=== PATIENT | male | born 1960 | race Caucasian/White ===

== ENCOUNTER → 2018-12-07 12:46 | Outpatient (BNVA) | payer MEDICARE, SELFPAY | PROVIDERS: Visit Provider Urology | DX: N43.40 Spermatocele of epididymis, unspecified (principal); I10 Essential (primary) hypertension; J44.9 Chronic obstructive pulmonary disease, unspecified; F17.210 Nicotine dependence, cigarettes, uncomplicated | CPT/HCPCS: 99203 ==

== ENCOUNTER 2019-01-07 06:34 | Day surgery (SDC) | payer MEDICARE, SELFPAY ==
--- NOTE | 2019-01-07 06:39 | W.PM.HP.N ---
Date of service: 01/07/19 Time of Service: 06:41 Assessment and Plan (1) Spermatocele of epididymis, multiple: Current visit: Yes Status: Acute We will go ahead with his left spermatocelectomy. History of Present Illness Chief Complaint: Left spermatoceles Narrative: This is a 58-year-old gentleman who multiple chronic medical issues. He was referred down to me from [facility] because of left-sided spermatoceles. The spermatoceles had been present for several years but have been increasing in size. The patient is concerned that these lesions may be responsible for some of his chronic pain as well as difficulty with erections. He is interested in having the lesion surgically treated. As part of our preop counseling, I informed the patient that these lesions would not be expected to have an impact on his erectile dysfunction. They also may not be contributing to his pain. He is still interested in having the lesions excised. Review of Systems Constitutional Denies chills, Reports daytime sleepiness, Reports fatigue, Denies fever(s) and Reports lethargy Eyes Denies loss of vision ENT Reports neck pain Cardiovascular Denies chest pain and Reports dyspnea on exertion Respiratory Reports dyspnea on exertion Gastrointestinal Denies abdominal pain Musculoskeletal Reports back pain, Reports arthralgias and Reports neck pain Neurologic Denies loss of vision Endocrine Reports fatigue Hematologic/Lymphatic Denies easy bruising PFSH Medical History Spermatocele of epididymis, multiple (Acute) Sleep apnea (Acute) COPD (chronic obstructive pulmonary disease) (Chronic) Cervical disc disease (Chronic) Depression (Chronic) GERD (gastroesophageal reflux disease) (Chronic) Hyperlipidemia (Chronic) Hypertension (Chronic) Lumbar disc disease (Chronic) Neuropathy (Chronic) Seizure (Inactive) Surgical History H/O carpal tunnel repair (Chronic) H/O eye surgery (Chronic) H/O hernia repair (Chronic) History of orthopedic surgery (Chronic) Hx of arthroscopy of knee (Chronic) Hx of tonsillectomy (Chronic) Social History Smoking/Tobacco Use Status: Current every day Tobacco Type: cigarettes Smoking cigarettes per day: 6 Tobacco: How many years used: 40 Alcohol Intake: never Substance use type: does not use Do you feel safe at home: Yes Do you feel safe in your relationship?: Yes Meds Home Medications Medication Instructions Recorded Confirmed Type acyclovir 200 mg capsule 200 mg PO Q4H 12/07/18 01/07/19 History buspirone 15 mg tablet 15 mg PO TID tab 12/07/18 01/07/19 History citalopram 20 mg tablet 20 mg PO DAILY 12/07/18 01/07/19 History divalproex 500 mg tablet,delayed 1,000 mg PO HS tab 12/07/18 01/07/19 History release doxycycline hyclate 100 mg capsule 100 mg PO BID 12/07/18 01/07/19 History esomeprazole magnesium 40 mg 40 mg PO DAILY cap 12/07/18 01/07/19 History capsule,delayed release fluticasone propionate-salmeterol 2 puff IH BID 12/07/18 01/07/19 History 115 mcg-21 mcg/actuation HFA inhaler gabapentin 300 mg capsule 300 mg PO TID 12/07/18 01/07/19 History hydroxyzine HCl 25 mg tablet 25 mg PO QID PRN 12/07/18 01/07/19 History lithium carbonate ER 300 mg 300 mg PO DAILY tab 12/07/18 01/07/19 History tablet,extended release naproxen 500 mg tablet 500 mg PO BID 12/07/18 01/07/19 History pramipexole 1 mg tablet 1 mg PO TID 12/07/18 01/07/19 History prochlorperazine maleate 10 mg 10 mg PO TID tab 12/07/18 01/07/19 History tablet risperidone 2 mg tablet 2 mg PO DAILY 12/07/18 01/07/19 History risperidone 4 mg tablet 4 mg PO HS 12/07/18 01/07/19 History trazodone 100 mg tablet 100 mg PO HS 12/07/18 01/07/19 History Allergies Allergy/AdvReac Type Severity Reaction Status Date / Time aspirin Allergy stomach Verified 01/07/19 06:38 concerns codeine Allergy itching Verified 01/07/19 06:38 cyclobenzaprine Allergy Verified 01/07/19 06:38 [From Flexeril] risperidone [From Risperdal] Allergy N&V Verified 01/07/19 06:38 rofecoxib [From Vioxx] Allergy palpitation Verified 01/07/19 06:38 s Exam Narrative Exam Narrative: He appears chronically ill. He does not appear septic or toxic His vital signs are documented elsewhere His neck shows decreased range of motion Lungs show decreased breath sounds bases Cardiac exam shows a regular rate and rhythm His abdomen is soft with no masses The testes themselves are normal. There is no scrotal erythema or ecchymosis. There are palpable masses above the left testis consistent with his known spermatoceles He is somnolent but awakens easily.
[2019-01-07 06:56] VITALS: BP 117/75; PULSE 86; RESP 16; TEMP 36.5; O2SAT 95
[2019-01-07] MEDS: Lactated Ringers 1,000 ML 80 ML IV (07:13)
--- NOTE | 2019-01-07 07:34 | NUR.NOTE ---
01/07/19 @ 0735: Pt presents today with slurred/garbled speech, and at a heightened fall risk due to appearing quite unsteady on feet walking from waiting room to DSU room. Pt has eyes closed for most of the intake with nurse and delayed responses when answering questions for nurse's intake. Yellow bracelet applied and circulating nurse made aware of increased fall risk. Pt's spouse reports that despite wanting to give pt some of her pain medication r/t pain he has, she did not give him any of his medication. notified of pt's status. EVELYNE Correa
--- NOTE | 2019-01-07 08:15 | SPERMATO_PTH ---
PATIENT: Jose Denson SR LOC: [facility] U#:[id number] AGE/SX: 58/M ROOM: RE01/07/[address]: Se Venegas MD : [id number] BED: DIS: 01/07/2019 SPEC #: [id number] RECD: 01/07/19 11:31 STATUS: RAMON REQ #: [id number] BRIANA: 01/07/19 08:[address]: Se Venegas DEPT: Surgical Specimen RECD BY: Brenda Clay ENTERED: 01/07/19 11:33 SP TYPE: SPERMATO OTHR DR: Ta Barker Tissues: 1 - SPERMATOCELE Procedures: GROSS AND MICRO LEVEL 3 Comments: [id number]
[2019-01-07] MEDS: Bupivacaine 0.25% Pres-Free 30 ML VIAL (08:21)
--- NOTE | 2019-01-07 08:24 | W.PM.DSUDISC ---
Discharge Plan Disposition Patient Disposition: HOME Condition: Stable Discharge Details Reason For Visit: surgery Attending Provider: Se Venegas Primary Care Provider: Ta Barker Home Meds and New Rx's Prescriptions: No Action acyclovir 200 mg capsule 200 mg PO Q4H RF: 0 Advair HFA 115-21 mcg/actuation HFA aerosol inhaler 2 puff IH BID RF: 0 buspirone 15 mg tablet 15 mg PO TID RF: 0 citalopram 20 mg tablet 20 mg PO DAILY RF: 0 divalproex 500 mg tablet,delayed release (DR/EC) 1,000 mg PO HS RF: 0 doxycycline hyclate 100 mg capsule 100 mg PO BID RF: 0 esomeprazole magnesium 40 mg capsule,delayed release(DR/EC) 40 mg PO DAILY RF: 0 gabapentin 300 mg capsule 300 mg PO TID RF: 0 hydroxyzine HCl 25 mg tablet 25 mg PO QID PRNRF: 0 lithium carbonate 300 mg tablet extended release 300 mg PO DAILY RF: 0 naproxen 500 mg tablet 500 mg PO BID RF: 0 pramipexole 1 mg tablet 1 mg PO TID RF: 0 prochlorperazine maleate 10 mg tablet 10 mg PO TID RF: 0 risperidone 2 mg tablet 2 mg PO DAILY RF: 0 risperidone 4 mg tablet 4 mg PO HS RF: 0 trazodone 100 mg tablet 100 mg PO HS RF: 0 Discharge Instructions Additional Instructions: OK to remove dressing and shower 01/08/19 Follow up with me 2 to 4 weeks Ice packs to scrotum (bag of frozen peas) for 48 hours to help reduce swelling Activity:: no lifting over 10 pounds until f/u visit Remove Dressings/Wound Care:: 24 hours Shower/Bathe:: 24 hours Diet:: As Tolerated Discharge Orders Discharge Orders: Discharge Order (Routine); Ordered 01/07/19 Ordered By: Se Venegas DS: Diagnosis Discharge Diagnosis (1) Spermatocele of epididymis, multiple: Status: Acute
[2019-01-07 08:31] VITALS: BP 105/71; PULSE 85; RESP 14; TEMP 36.7; O2SAT 95
[2019-01-07 08:36] VITALS: BP 124/76; PULSE 85; RESP 14; TEMP 36.7; O2SAT 94
[2019-01-07 08:41] VITALS: BP 98/69; PULSE 88; RESP 20; TEMP 36.7; O2SAT 95
[2019-01-07 08:56] VITALS: BP 112/92; PULSE 74; RESP 15; TEMP 36.7; O2SAT 97
[2019-01-07 09:35] VITALS: BP 118/75; PULSE 75; RESP 14; TEMP 36.7; O2SAT 94
--- NOTE | 2019-01-07 13:14 | ROE_ITS ---
REPORT OF OPERATIVE PROCEDURE DATE OF PROCEDURE January 07, 2019 PREOPERATIVE DIAGNOSIS Left spermatocele. POSTOPERATIVE DIAGNOSIS Left spermatocele. PROCEDURE Left spermatocelectomy. SURGEON Se Venegas M.D. ANESTHESIA General. COMPLICATIONS None. ESTIMATED BLOOD LOSS Minimal. HISTORY This is a 58-year-old gentleman who was referred by the providers up at [facility]. Mr. Fadi henry has a history of left scrotal masses, which have increased in size and have become a bit more u ncomfortable for him. He does have chronic pain and it is not clear that the spermatoceles are respon sible for any of his chronic pain, but he is interested in having the lesions removed. OPERATIVE REPORT The patient was brought to the Operating Room on 01/07/2019. After successful induction of general an esthesia, he was placed in the supine position. His genitalia was prepped and draped. A left transverse scrotal incision was made and extended down through the dartos muscle. The testis w as then delivered through the incision. We opened the tunica vaginalis and exposed the testis and epididymis. A multicystic spermatocele was identified attached to the epididymis. We then dissected the spermatocele away from the epididymis. We were able to remove the multicystic s permatocele intact and send it to the Pathology Lab for permanent section. We cauterized the attachme nt point of the spermatocele and re-inspected the epididymis and testis for hemostasis. The perfusion to the testis appeared adequate based on its gross appearance. We then did a cord block using 0.25% Marcaine. We placed the testis back within the left hemiscrotum. We closed the dartos muscle using a section of running #3-0 Chromic sutures. We then closed the scro maggie skin with simple interrupted #4-0 Chromic. Dermabond was applied to the wound, a Fluff dressing a nd mesh underwear where then applied as well. The patient tolerated this procedure well. There were no complications. CC: Ta Barker M.D. Nara Mendez M.D.
== END 2019-01-07 10:45 | disposition home or self-care (01) ==
PROVIDERS: PCP Family Medicine; Visit Provider Urology
PROC: (CPT 54840; principal; 2019-01-07 07:30)
DX: N43.41 Spermatocele of epididymis, single (principal); J44.9 Chronic obstructive pulmonary disease, unspecified; K21.9 Gastro-esophageal reflux disease without esophagitis; I10 Essential (primary) hypertension; N45.1 Epididymitis
CPT/HCPCS: 54840; NC; 88304; J1100; J1885; J2405

== ENCOUNTER → 2019-02-12 13:06 | Outpatient (BNVA) | payer MEDICARE, SELFPAY | PROVIDERS: PCP Family Medicine; Visit Provider Urology | DX: N43.42 Spermatocele of epididymis, multiple (principal); J44.9 Chronic obstructive pulmonary disease, unspecified; I10 Essential (primary) hypertension; F17.210 Nicotine dependence, cigarettes, uncomplicated | CPT/HCPCS: 99212 ==

== ENCOUNTER → 2020-04-18 10:29 | Outpatient (BNVA) | payer MEDICARE, MEDICAID, SELFPAY | PROVIDERS: PCP Family Medicine; Referring Provider Family Medicine; Visit Provider Urology | DX: N40.1 Benign prostatic hyperplasia with lower urinary tract symptoms (principal); N52.9 Male erectile dysfunction, unspecified; Z12.5 Encounter for screening for malignant neoplasm of prostate; J44.9 Chronic obstructive pulmonary disease, unspecified; I10 Essential (primary) hypertension; F17.210 Nicotine dependence, cigarettes, uncomplicated | CPT/HCPCS: 99213 ==

== ENCOUNTER → 2020-05-25 10:18 | Outpatient (BNVA) | payer MEDICARE, MEDICAID, SELFPAY | PROVIDERS: PCP Family Medicine; Referring Provider Family Medicine; Visit Provider Urology | DX: E29.1 Testicular hypofunction (principal); N52.9 Male erectile dysfunction, unspecified; I10 Essential (primary) hypertension; J44.9 Chronic obstructive pulmonary disease, unspecified | CPT/HCPCS: 99213; 99442 ==

== ENCOUNTER → 2020-11-07 10:11 | Outpatient (BNVA) | payer MEDICARE, MEDICAID, SELFPAY | PROVIDERS: PCP Family Medicine; Referring Provider Family Medicine; Visit Provider Urology | DX: E29.1 Testicular hypofunction (principal) | CPT/HCPCS: 99213 ==

== ENCOUNTER 2020-11-07 12:25 | Outpatient (REF) | payer MEDICARE, MEDICAID, SELFPAY ==
[2020-11-07 17:35] LABS: PSA, Diagnostic 0.8 ng/mL (0.0-3.5)
[2020-11-09 11:34] LABS: Testosterone, Total 220 ng/dL (240-950)
== END 2020-11-07 12:26 | disposition home or self-care (01) ==
LOC: LBN 12:25
PROVIDERS: PCP Family Medicine; Visit Provider Urology
DX: E29.1 Testicular hypofunction (principal); N40.1 Benign prostatic hyperplasia with lower urinary tract symptoms
CPT/HCPCS: 84403; 84153

== ENCOUNTER 2020-11-13 11:15 | Outpatient (CLI) | payer MEDICARE, MEDICAID, SELFPAY ==
--- NOTE | 2020-11-13 | DI.US_ITS ---
EXAM: US EXTREMITY VENOUS BI CLINICAL HISTORY: BILATERAL LEG PAIN, M79.606 TECHNIQUE: Grayscale, color, and doppler imaging of the deep venous system of both lower extremities was performed. COMPARISON: No exams were available for comparison FINDINGS: There is no evidence of intraluminal thrombus and there is normal compression and augmentation demons trated within the common femoral veins, femoral veins, and popliteal veins of both lower extremities. In the calves the interrogated veins also exhibit normal compression/ augmentation properties. The greater saphenous veins also appear patent as do the saphenofemoral junctions bilaterally.. IMPRESSION: 1. No ultrasound evidence of DVT in either lower extremity. DATA REPOSITORY:
== END 2020-11-13 11:35 ==
PROVIDERS: PCP Family Medicine; Visit Provider Neurological Surgery
DX: R60.0 Localized edema (principal); M79.604 Pain in right leg; M79.605 Pain in left leg
CPT/HCPCS: 93970

== ENCOUNTER 2021-04-13 10:06 | Day surgery (SDC) | payer OTHER, MEDICAID, SELFPAY ==
[2021-04-13] MEDS: Tropicam./Phenyleph. (1/2.5%) 5 ML BTL OS ×3 (11:46→12:14)
[2021-04-13 12:14] VITALS: BP 141/99; PULSE 75; RESP 16; TEMP 36.9; O2SAT 97
--- NOTE | 2021-04-13 12:23 | W.ANESPRE ---
General Info Date of Service Date Performed: 04/13/21 Height: 6 ft 2 in Weight: 88.5 kg Body Mass Index (BMI): 25.0 Surgical Procedure: Operation Date: 04/13/21 14:40 Proposed Procedures Side Surgeon p Cataract Extraction with IOL Implant Left Osei Gale MD Meds Allergies and Home Medications Allergies Allergy/AdvReac Type Severity Reaction Status Date / Time aspirin Allergy stomach Verified 04/13/21 11:51 concerns codeine Allergy itching Verified 04/13/21 11:51 cyclobenzaprine Allergy Verified 04/13/21 11:51 [From Flexeril] risperidone [From Risperdal] Allergy N&V Verified 04/13/21 11:51 rofecoxib [From Vioxx] Allergy palpitation Verified 04/13/21 11:51 s Home Medication Medication Instructions Recorded acyclovir 200 mg capsule 200 mg PO Q4H 12/07/18 buspirone 15 mg tablet 15 mg PO TID tab 12/07/18 citalopram 20 mg tablet 20 mg PO DAILY 12/07/18 divalproex 500 mg tablet,delayed 1,000 mg PO HS tab 12/07/18 release esomeprazole magnesium 40 mg 40 mg PO DAILY cap 12/07/18 capsule,delayed release fluticasone propionate 115 2 puff IH BID 12/07/18 mcg-salmeterol 21 mcg/actuation HFA inhaler gabapentin 300 mg capsule 300 mg PO QID 12/07/18 hydroxyzine HCl 25 mg tablet 25 mg PO QID PRN 12/07/18 naproxen 500 mg tablet 500 mg PO BID 12/07/18 pramipexole 1 mg tablet 1 mg PO TID 12/07/18 prochlorperazine maleate 10 mg 10 mg PO TID tab 12/07/18 tablet risperidone 2 mg tablet 2 mg PO DAILY 12/07/18 risperidone 4 mg tablet 4 mg PO HS 12/07/18 trazodone 100 mg tablet 300 mg PO HS 12/07/18 hydrocodone 10 mg-acetaminophen 1 tab PO Q6H PRN #30 tab MDD 6 01/07/19 325 mg tablet levothyroxine 88 mcg capsule 88 mcg PO DAILY 04/18/20 testosterone cypionate 200 mg/mL 200 mg IM Q2W #1 ml 12/12/20 intramuscular oil famotidine 40 mg PO DAILY 04/13/21 gabapentin 600 mg PO TID 04/13/21 lamotrigine 25 mg PO DAILY 04/13/21 metoclopramide HCl 5 mg PO DAILY 04/13/21 omeprazole 40 mg PO DAILY 04/13/21 Current Visit Medications: Current Medications Generic Name Dose Route Start Last Admin Trade Name Freq PRN Reason Stop Dose Admin Acetaminophen 1,000 mg 04/13/21 06:00 Acetaminophen 500 Mg Tab PO Q4H PRN PRN Miscellaneous Medication 0 ml 04/13/21 06:00 Prednisolone 1%, Moxifloxacin 0.5%, Nepafenac 0.1% 5ml Btl OS DIRECTED EMERITA Miscellaneous Medication 0 ml 04/13/21 06:00 04/13/21 12:14 Tropicam./Phenyleph. (1/2.5%) 5 Ml Btl OS 1 drp DIRECTED EMERITA Administration Tetracaine HCl 0 ml 04/13/21 06:00 Tetracaine 0.5% 4 Ml Btl OS DIRECTED EMERITA PFSH Active Problems Active Problems: Problem Status Onset Code Hypogonadism in male E29.1 Spermatocele of epididymis, multiple N43.42 Medical History Medical History (Updated 04/13/21 @ 12:23 by Shilpa Garsia) Cervical disc disease COPD (chronic obstructive pulmonary disease) Depression GERD (gastroesophageal reflux disease) History of back injury History of hypothyroidism Hyperlipidemia Hypertension Hypogonadism in male Lumbar disc disease Neuropathy Seizure Sleep apnea Spermatocele of epididymis, multiple Surgical History Surgical History H/O carpal tunnel repair H/O eye surgery foreign body removal H/O hernia repair History of back surgery History of orthopedic surgery finger mass Hx of arthroscopy of knee Hx of shoulder surgery left Hx of tonsillectomy Tobacco Smoking/Tobacco Use Status: Current every day Tobacco Type: cigarettes Smoking cigarettes per day: 6 Tobacco: How many years used: 40 Alcohol Alcohol Intake: never Substance Use Substance use type: does not use Vital Signs and Lab Results Vital Signs Most Recent Vital Signs in EMR: Most Recent Vital Signs Temp Pulse Resp BP Pulse Ox 36.9 C 75 16 141/99 H 97 04/13/21 12:14 04/13/21 12:14 04/13/21 12:14 04/13/21 12:14 04/13/21 12:14 Lab Results Blood Type / Crossmatch: No Data to Display Complete Blood Count: No Data to Display Complete Metabolic Panel: No Data to Display Liver Function Panel: No Data to Display Coagulation Panel: No Data to Display Cardiac Panel: No Data to Display Arterial Blood Gas: No Data to Display Venous Blood Gas: No Data to Display Pancreas Panel: No Data to Display Thyroid Panel: No Data to Display Infectious Disease: No Data to Display Blood Cultures: No Data to Display Toxicology Panel: No Data to Display Anesthesia Assessment and Plan Anesthesia History Personal History: No History of Anesthesia Complications Family History: No Family History of Anesthesia Complications Exercise Tolerance Exercise Tolerance: Metabolic Equivalents>4 Pertinent Negatives Pertinent Negatives: No Symptoms of GERD Cardiac & Pulmonary Exam Cardiac Exam: Normal S1/S2 Heart Sounds Pulmonary Exam: Clear Bilateral Breath Sounds Airway Exam Known Difficult Airway: No Mallampati Class: 2 Mouth Opening: Normal (> 3cm) Thyromental Distance: Greater than 3 cm Neck Range of Motion: Full ROM Neck Circumference: Normal Teeth Condition: Removable Dentures/Plates Upper, Removable Dentures/Plates Lower and Other (Both dentures with broken teeth) ASA Classification ASA Score: ASA 2 Emergency Case?: No NPO Status NPO Status: NPO Clears >2 hours, Solids >8 hours Anesthesia Plan Resuscitation Status: Full Code Anesthesia Technique: MAC Anesthesia Airway Planned: Natural Airway Monitors Used: Standard Monitors
[2021-04-13 12:25] VITALS: BMI 25.0
[2021-04-13 12:30] VITALS: BMI 25.0
[2021-04-13] MEDS: Tetracaine 0.5% 4 ML BTL OS (12:47)
[2021-04-13] MEDS: Balanced Salt Soln.-PLUS 500 ML BAG (12:47)
[2021-04-13] MEDS: Duovisc Viscoelastic System EACH 1 EACH (12:48)
[2021-04-13] MEDS: Lidocaine 1% Pres-Free 5 ML VIAL (12:48)
[2021-04-13] MEDS: Lidocaine 2% Jelly 6 ML SYR (12:49)
[2021-04-13] MEDS: Povidone-Iodine Ophth 30 ML BTL (12:51)
--- NOTE | 2021-04-13 13:09 | W.PM.DSUDISC ---
Discharge Plan Disposition Patient Disposition: HOME Condition: Good Discharge Details Attending Provider: Osei Gale Primary Care Provider: Ta Barker Home Meds and New Rx's Prescriptions: No Action acyclovir 200 mg capsule 200 mg PO Q4H RF: 0 Advair HFA 115-21 mcg/actuation HFA aerosol inhaler 2 puff IH BID RF: 0 buspirone 15 mg tablet 15 mg PO TID RF: 0 citalopram 20 mg tablet 20 mg PO DAILY RF: 0 divalproex 500 mg tablet,delayed release (DR/EC) 1,000 mg PO HS RF: 0 esomeprazole magnesium 40 mg capsule,delayed release(DR/EC) 40 mg PO DAILY RF: 0 gabapentin 300 mg capsule 300 mg PO QID RF: 0 hydroxyzine HCl 25 mg tablet 25 mg PO QID PRNRF: 0 naproxen 500 mg tablet 500 mg PO BID RF: 0 pramipexole 1 mg tablet 1 mg PO TID RF: 0 prochlorperazine maleate 10 mg tablet 10 mg PO TID RF: 0 risperidone 2 mg tablet 2 mg PO DAILY RF: 0 risperidone 4 mg tablet 4 mg PO HS RF: 0 trazodone 100 mg tablet 300 mg PO HS RF: 0 hydrocodone-acetaminophen 10-325 mg tablet 1 tab PO Q6H MDD 6 PRN (Reason: pain) Qty: 30 RF: 0 levothyroxine 88 mcg capsule 88 mcg PO DAILY RF: 0 testosterone cypionate [Depo-Testosterone] 200 mg/mL oil 200 mg IM Q2W Qty: 1 RF: 5 gabapentin 600 mg tablet 600 mg PO TID RF: 0 famotidine 40 mg tablet 40 mg PO DAILY RF: 0 omeprazole 40 mg capsule,delayed release(DR/EC) 40 mg PO DAILY RF: 0 lamotrigine 25 mg tablet 25 mg PO DAILY RF: 0 metoclopramide HCl 5 mg tablet 5 mg PO DAILY RF: 0 Discharge Instructions Stand Alone Forms: Post-op Topical Cataract, Nadiya Peoples (DSU) Discharge Orders Discharge Orders: Discharge Order (Routine); Ordered 04/13/21 Ordered By: Osei Gale DS: Diagnosis Discharge Diagnosis (1) Cortical cataract of left eye: Status: Acute (2) Nuclear sclerotic cataract of left eye: Status: Resolved
--- NOTE | 2021-04-13 13:10 | ROE_ITS ---
Date of service: 04/13/21 Time of Service: 13:10 Operative Note Operative Note DATE OF PROCEDURE: 04/13/21 PRE-OP DIAGNOSIS: Nuclear/cortical cataract, left eye POST-OP DIAGNOSIS: same PROCEDURE: Cataract extraction using phacoemulsification with intraocular lens implant, left eye SURGEON: Osei Gale ANESTHESIA TYPE: Local By Surgeon and MAC Refer to Anesthesia Record PATHOLOGY: none sent COMPLICATIONS: None Patient was transported to: same day Patient's condition: stable Implants: Ghanshyam and Ghanshyam / [employer] Tecnis [id number] Indications: Progressive decreased vision due to cataract, left eye, with poor red reflex Procedure Description: CATARACT SURGERY OPERATIVE REPORT PREOPERATIVE DIAGNOSIS: 1. Nuclear/cortical cataract, left eye POSTOPERATIVE DIAGNOSIS: Same OPERATION: 1. Cataract extraction using phacoemulsification with posterior chamber intraocular lens implant, left eye. IOL: IOL Insurance Sales Manager/Model: Gh[employer]hy[employer] Ghanshy[employer] / FRANCI Tecnis [id number] IOL Power: + 23.5 diopters IOL Serial Number: [id number] Optic Diameter: 6.0 mm Haptic/Overall Diameter: 13.0 mm PHACO INFO: Zbigniew Flexcomurion Vision System with OZil and Active Fluidics Cumulative Dispersed Energy (CDE): 7.03 seconds SURGEON: Osei Gale MD, TALAT ANESTHESIA: Monitored A [facility] Care (MAC), with local sub-tenon's anesthetic infiltration COMPLICATIONS: None SPECIMENS: None INDICATIONS FOR PROCEDURE: The patient is a 60-year-old gentleman with history of diminished visual acuity in his left eye. He is noted to have a moderate nuclear and cortical cataract. The option of cataract surgery was offered to the patient and he wished to proceed. PROCEDURE: The correct surgical eye was identified and marked as the left eye and the pupil was dilated in the preoperative area using mydriatics and c ycloplegics. The dilated pupil size was 7.0 mm. He elected to proceed without oral sedation.. The patient was brought to the operating room where cardiopulmonary monitoring was instituted and surgical time-out was performed, confirming the correct operative eye and IOL power. Topical anesthesia was administered and ophthalmic povidone-iodine 5% was instilled into the conjunctival fornices. Lidocaine gel was applied to the cornea and the willard-ocular area was prepped with Betadine 10% solution and draped in the usual sterile fashion for intraocular surgery, including an aperture drape. A Tegaderm transparent film dressing was cut in half and used to cover the lashes and lid margins. Care was taken to sequester the lashes and lid margins under the Tegaderm dressing. A lid speculum was placed between the lids of the operative eye and the Bo-Yajaira operating microscope was maneuvered into position. Humble scissors were then used to make a conjunctival buttonhole approximately 6mm posterior to the limbus in the inferonasal quadrant. Blunt dissection was carried out to expose bare sclera, and a blunt-tipped sub-tenon?s anesthesia cannula was introduced and passed posteriorly along the globe where non- preserved plain lidocaine was injected into posterior sub-Tenon?s space. A sideport knife was used to make a paracentesis port superiorly/superiortemporally. Intraocular phenylephrine/lidocaine was injected int the anterior chamber.. The anterior chamber was filled with viscoelastic. A 2.4mm keratome knife was used to create a half-thickness groove at the limbus and then to construct a three-plane near-clear corneal tunnel extending 2.0mm into clear cornea at the 3:00 position. A flap was raised on the anterior capsule and capsulorhexis forceps were used to complete a continuous curvilinear capsulorhexis of 5.0 mm. Balanced salt solution was then used to perform cortical cleaving hydrodissection and nuclear hydrodelineation until the lens could be freely rotated within the capsular bag. The lens nucleus was then disassembled and removed within the capsular bag and iris plane using phacoemulsification. Residual cortical material was removed using the 45-degree angled silicone I/A tip with 0.3mm port. The posterior capsule was carefully polished to remove as much residual lens epithelial cells as safely possible. The capsular bag was then inflated and the anterior chamber deepened with viscoelastic. The lens implant described above was inserted into the capsular bag using the FRANCI [place] Injector. A Kuglen hook was used to dial the IOL into position. Residual viscoelastic was then removed first from posterior to the IOL, then from the anterior chamber using the I/A handpiece. The lens implant was noted to center nicely within the capsular bag. The incisions were stromally hydrated, and the anterior chamber was reformed using BSS. Then 0.5cc of moxifloxacin 1.0mg/ml were injected into the capsular bag and anterior chamber. The incisi ons were checked with a Weck spear and found to be secure. Several drops of ophthalmic povidone-iodine 5% were then applied to the eye followed by two drops of Imprimis combination prednisolone/moxifloxacin/nepafenac solution. The drapes were removed and a clear plastic protective eye shield was placed over the eye. The patient was then returned to Same Day Surgery in stable condition.
[2021-04-13 13:12] VITALS: BP 132/87; PULSE 68; RESP 16; TEMP 36.5; O2SAT 96
--- NOTE | 2021-04-13 13:34 | W.ANESPOSTOP ---
Postoperative Evaluation Date, Time and Location Date Performed: 04/13/21 Time Performed: 13:34 Patient Location: Day Surgery Unit Vital Signs Most Recent Imported Vital Signs: Most Recent Vital Signs Temp Pulse Resp BP Pulse Ox 36.5 C 68 16 132/87 96 04/13/21 13:12 04/13/21 13:12 04/13/21 13:12 04/13/21 13:12 04/13/21 13:12 Pain Score Most Recent Pain Score: Most Recent Pain Score Pain Level 0 04/13/21 13:12 Assessment Mental Status: Awake (Alert & Oriented to Patient Baseline) Airway and Respiratory Function: Patent airway with normal (patient baseline) respiratory exam Cardiovascular Function: Hemodynamically Stable Hydration Status: Adequately Hydrated Nausea & Vomiting: No Nausea or Vomiting Pain: Pt. Denies Any Pain Peripheral Nerve Block: Other (Local by Dr. Gale)
== END 2021-04-13 13:40 | disposition home or self-care (01) ==
PROVIDERS: PCP Family Medicine; Visit Provider Ophthalmology
PROC: (CPT 66984; principal; 2021-04-13 14:30)
DX: H25.12 Age-related nuclear cataract, left eye (principal); J44.9 Chronic obstructive pulmonary disease, unspecified; I10 Essential (primary) hypertension
CPT/HCPCS: 66984; V2632

== ENCOUNTER 2021-04-25 03:36 | Outpatient (CLI) | payer OTHER, MEDICAID, SELFPAY ==
[2021-04-25 13:12] LABS: Source Nasal/Nares
[2021-04-25 15:22] LABS: COVID-19 PCR Negative (Negative)
== END 2021-04-25 03:37 | disposition home or self-care (01) ==
LOC: LBO 03:37
PROVIDERS: PCP Family Medicine; Visit Provider Ophthalmology
DX: Z20.822 Contact with and (suspected) exposure to COVID-19 (principal); Z01.818 Encounter for other preprocedural examination
CPT/HCPCS: 87635

== ENCOUNTER 2021-04-27 10:06 | Day surgery (SDC) | payer MEDICARE, MEDICAID, SELFPAY ==
[2021-04-27] MEDS: Tropicam./Phenyleph. (1/2.5%) 5 ML BTL OD ×3 (11:04→11:18)
[2021-04-27 11:06] VITALS: BP 128/92; PULSE 85; RESP 16; TEMP 36.7; O2SAT 95
--- NOTE | 2021-04-27 11:13 | ANES.PREOP_ITS ---
General Info Date of Service Date Performed: 04/27/21 Height: 6 ft 2 in Weight: 85.3 kg Body Mass Index (BMI): 24.1 Surgical Procedure: Operation Date: 04/27/21 13:40 Proposed Procedures Side Surgeon p Cataract Extraction with IOL Implant Right Osei Gale MD Meds Allergies and Home Medications Allergies Allergy/AdvReac Type Severity Reaction Status Date / Time codeine Allergy itching Verified 04/27/21 10:44 cyclobenzaprine Allergy Verified 04/27/21 10:44 [From Flexeril] aspirin AdvReac stomach Verified 04/27/21 10:46 concerns risperidone [From Risperdal] AdvReac N&V Verified 04/27/21 10:46 rofecoxib [From Vioxx] AdvReac palpitation Verified 04/27/21 10:46 s Home Medication Medication Instructions Recorded acyclovir 200 mg capsule 200 mg PO Q4H 12/07/18 fluticasone propionate 115 2 puff IH BID 12/07/18 mcg-salmeterol 21 mcg/actuation HFA inhaler gabapentin 300 mg capsule 300 mg PO QID 12/07/18 hydroxyzine HCl 25 mg tablet 25 mg PO QID PRN 12/07/18 pramipexole 1 mg tablet 1 mg PO TID 12/07/18 prochlorperazine maleate 10 mg 10 mg PO TID tab 12/07/18 tablet trazodone 100 mg tablet 300 mg PO HS 12/07/18 hydrocodone 10 mg-acetaminophen 1 tab PO Q6H PRN #30 tab MDD 6 01/07/19 325 mg tablet levothyroxine 88 mcg capsule 88 mcg PO DAILY 04/18/20 lamotrigine 25 mg PO BID 04/13/21 metoclopramide HCl 5 mg PO DAILY 04/13/21 omeprazole 40 mg PO DAILY 04/13/21 testosterone cypionate 200 mg/mL 200 mg IM Q2W #1 ml 04/19/21 intramuscular oil albuterol sulfate 2 puff INHALATION Q3-5H 04/27/21 baclofen 20 mg PO TID 04/27/21 fexofenadine-pseudoephedrine 1 tab PO BID 04/27/21 gabapentin 04/27/21 ibuprofen 600 mg PO QID PRN 04/27/21 Current Visit Medications: Current Medications Generic Name Dose Route Start Last Admin Trade Name Freq PRN Reason Stop Dose Admin Acetaminophen 1,000 mg 04/27/21 06:00 Acetaminophen 500 Mg Tab PO Q4H PRN PRN Miscellaneous Medication 0 ml 04/27/21 06:00 Prednisolone 1%, Moxifloxacin 0.5%, Nepafenac 0.1% 5ml Btl OD DIRECTED [facility] Miscellaneous Medication 0 ml 04/27/21 06:00 04/27/21 11:04 Tropicam./Phenyleph. (1/2.5%) 5 Ml Btl OD 1 drp DIRECTED EMERITA Administration Tetracaine HCl 0 ml 04/27/21 06:00 Tetracaine 0.5% 4 Ml Btl OD DIRECTED EMERITA PFSH Active Problems Active Problems: Problem Status Onset Code Cortical cataract of left eye H26.9 Nuclear sclerotic cataract of left eye H25.12 Nuclear sclerotic cataract of right eye H25.11 Cortical cataract of right eye H26.9 Hypogonadism in male E29.1 Spermatocele of epididymis, multiple N43.42 Medical History Medical History Cervical disc disease COPD (chronic obstructive pulmonary disease) Depression GERD (gastroesophageal reflux disease) History of back injury History of hypothyroidism Hyperlipidemia Hypertension Hypogonadism in male Lumbar disc disease Neuropathy Seizure Sleep apnea Spermatocele of epididymis, multiple Surgical History Surgical History (Updated 04/27/21 @ 10:46 by Shilpa Garsia) H/O carpal tunnel repair H/O eye surgery foreign body removal H/O hernia repair History of back surgery History of orthopedic surgery finger mass Hx of arthroscopy of knee Hx of cataract surgery Hx of shoulder surgery left Hx of tonsillectomy Tobacco Smoking/Tobacco Use Status: Current every day Tobacco Type: cigarettes Smoking cigarettes per day: 6 Tobacco: How many years used: 40 Alcohol Alcohol Intake: never Substance Use Substance use type: does not use Vital Signs and Lab Results Vital Signs Most Recent Vital Signs in EMR: Most Recent Vital Signs Temp Pulse Resp BP Pulse Ox 36.7 C 85 16 128/92 H 95 04/27/21 11:06 04/27/21 11:06 04/27/21 11:06 04/27/21 11:06 04/27/21 11:06 Lab Results Blood Type / Crossmatch: No Data to Display Complete Blood Count: No Data to Display Complete Metabolic Panel: No Data to Display Liver Function Panel: No Data to Display Coagulation Panel: No Data to Display Cardiac Panel: No Data to Display Arterial Blood Gas: No Data to Display Venous Blood Gas: No Data to Display Pancreas Panel: No Data to Display Thyroid Panel: No Data to Display Infectious Disease: Coronavirus (COVID-19)(PCR) Negative (Negative) 04/25/21 10:57 04/25/21 Coronavirus 2019 Source Nasal/Nares 04/25/21 10:57 04/25/21 Blood Cultures: No Data to Display Toxicology Panel: No Data to Display Anesthesia Assessment and Plan Anesthesia History Personal History: No History of Anesthesia Complications Family History: No Family History of Anesthesia Complications Exercise Tolerance Exercise Tolerance: Metabolic Equivalents>4 Pertinent Negatives Pertinent Negatives: No Symptoms of GERD Cardiac & Pulmonary Exam Cardiac Exam: Normal S1/S2 Heart Sounds Pulmonary Exam: Clear Bilateral Breath Sounds Airway Exam Known Difficult Airway: No Mallampati Class: 2 Mouth Opening: Normal (> 3cm) Thyromental Distance: Greater than 3 cm Neck Range of Motion: Full ROM Neck Circumference: Normal Teeth Condition: Removable Dentures/Plates Upper, Removable Dentures/Plates Lower and Other (Both dentures with broken teeth) ASA Classification ASA Score: ASA 2 Emergency Case?: No NPO Status NPO Status: NPO Clears >2 hours, Solids >8 hours Anesthesia Plan Resuscitation Status: Full Code Anesthesia Technique: MAC Anesthesia Airway Planned: Natural Airway Monitors Used: Standard Monitors
[2021-04-27] MEDS: Tetracaine 0.5% 4 ML BTL OD (11:40)
[2021-04-27 11:41] VITALS: BMI 24.1
[2021-04-27] MEDS: Duovisc Viscoelastic System EACH 1 EACH (11:41)
[2021-04-27] MEDS: Balanced Salt Soln.-PLUS 500 ML BAG (11:41)
[2021-04-27] MEDS: Lidocaine 1% Pres-Free 5 ML VIAL (11:42)
[2021-04-27] MEDS: Lidocaine 2% Jelly 6 ML SYR (11:42)
[2021-04-27] MEDS: Povidone-Iodine Ophth 30 ML BTL (11:43)
--- NOTE | 2021-04-27 12:04 | W.PM.DSUDISC ---
Discharge Plan Disposition Patient Disposition: HOME Condition: Good Discharge Details Attending Provider: Osei Gale Primary Care Provider: Ta Barker Home Meds and New Rx's Prescriptions: No Action acyclovir 200 mg capsule 200 mg PO Q4H RF: 0 Advair HFA 115-21 mcg/actuation HFA aerosol inhaler 2 puff IH BID RF: 0 gabapentin 300 mg capsule 300 mg PO QID RF: 0 hydroxyzine HCl 25 mg tablet 25 mg PO QID PRNRF: 0 pramipexole 1 mg tablet 1 mg PO TID RF: 0 prochlorperazine maleate 10 mg tablet 10 mg PO TID RF: 0 trazodone 100 mg tablet 300 mg PO HS RF: 0 hydrocodone-acetaminophen 10-325 mg tablet 1 tab PO Q6H MDD 6 PRN (Reason: pain) Qty: 30 RF: 0 levothyroxine 88 mcg capsule 88 mcg PO DAILY RF: 0 testosterone cypionate [Depo-Testosterone] 200 mg/mL oil 200 mg IM Q2W Qty: 1 RF: 5 omeprazole 40 mg capsule,delayed release(DR/EC) 40 mg PO DAILY RF: 0 lamotrigine 25 mg tablet 25 mg PO BID RF: 0 metoclopramide HCl 5 mg tablet 5 mg PO DAILY RF: 0 gabapentin 600 mg tablet RF: 0 baclofen 20 mg tablet 20 mg PO TID RF: 0 ibuprofen 600 mg tablet 600 mg PO QID PRNRF: 0 albuterol sulfate 90 mcg/actuation HFA aerosol inhaler 2 puff INHALATION Q3-5H RF: 0 fexofenadine-pseudoephedrine 60-120 mg tablet extended release 12 hr 1 tab PO BID RF: 0 Discharge Instructions Stand Alone Forms: Post-op Topical Cataract, Nadiya Cageey (DSU) Discharge Orders Discharge Orders: Discharge Order (Routine); Ordered 04/27/21 Ordered By: Osei Gale DS: Diagnosis Discharge Diagnosis (1) Nuclear sclerotic cataract of right eye: Status: Resolved (2) Cortical cataract of right eye: Status: Resolved
[2021-04-27 12:05] VITALS: BP 137/91; PULSE 83; RESP 18; TEMP 36.3; O2SAT 94
--- NOTE | 2021-04-27 12:05 | ROE_ITS ---
Date of service: 04/27/21 Time of Service: 12:05 Operative Note Operative Note DATE OF PROCEDURE: 04/27/21 PRE-OP DIAGNOSIS: Nuclear/cortical cataract, right eye POST-OP DIAGNOSIS: same PROCEDURE: Cataract extraction using phacoemulsification with intraocular lens implant, right eye SURGEON: Osei Gale ANESTHESIA TYPE: Local By Surgeon and MAC Refer to Anesthesia Record ESTIMATED BLOOD LOSS: 0 PATHOLOGY: none sent COMPLICATIONS: None Patient was transported to: same day Patient's condition: stable Implants: Gh[employer]hy[employer] Ghanshyam/FRANCI Tecnis [id number] Indications: Progressive visual loss due to cataract, right eye Procedure Description: CATARACT SURGERY OPERATIVE REPORT PREOPERATIVE DIAGNOSIS: 1. Nuclear/cortical cataract, right eye POSTOPERATIVE DIAGNOSIS: Same OPERATION: 1. Cataract extraction using phacoemulsification with posterior chamber intraocular lens implant, right eye. IOL: IOL Veterinary Technician Assistant/Model: [employer] Ghanshy[employer] / FRNACI Tecnis [id number] IOL Power: + 23.5 diopters IOL Serial Number: [id number] Optic Diameter: 6.0mm Haptic/Overall Diameter: 13.0mm PHACO INFO: Zbigniew Icarus Ascendingurion Vision System with OZil and Active Fluidics Cumulative Dispersed Energy (CDE): 4.11 seconds SURGEON: Osei Gale MD, TALAT ANESTHESIA: Monitored Anesthesia Care (MAC), with local sub-tenon's anesthetic infiltration COMPLICATIONS: None SPECIMENS: None INDICATIONS FOR PROCEDURE: The patient is a 60-year-old gentleman with history of diminished visual acuity in both eyes secondary to the development of bilateral nuclear and cortical cataract. He has already undergone cataract surgery in the left eye and is doing well postoperatively. He now presents for cataract surgery in the right eye. PROCEDURE: The correct surgical eye was identified and marked as the right eye and the pupil was dilated in the preoperative area using mydriatics and cycloplegics. The dilated pupil size was 5.5 mm. He elected to proceed without oral sedation. The patient was brought to the operating room where cardiopulmonary monitoring was instituted and surgical time-out was performed, confirming the correct operative eye and IOL power. Topical anesthesia was administered and ophthalmic povidone-iodine 5% was instilled into the conjunctival fornices. Lidocaine gel was applied to the cornea and the willard-ocular area was prepped with Betadine 10% solution and draped in the usual sterile fashion for intraocular surgery, including an aperture drape. A Tegaderm transparent film dressing was cut in half and used to cover the lashes and lid margins. Care was taken to sequester the lashes and lid margins under the Tegaderm dressing. A lid speculum was placed between the lids of the operative eye and the Bo-Yajaira operating microscope was maneuvered into position. Humble scissors were then used to make a conjunctival buttonhole approximately 6mm posterior to the limbus in the inferonasal quadrant. Blunt dissection was carried out to expose bare sclera, and a blunt-tipped sub-tenon?s anesthesia cannula was introduced and passed posteriorly along the globe where non- preserved plain lidocaine was injected into posterior sub-Tenon?s space. A sideport knife was used to make a paracentesis port inferotemporally. Intraocular phenylephrine/lidocaine was injected into the anterior chamber. The anterior chamber was filled with viscoelastic. A 2.4mm keratome knife was used to create a half-thickness groove at the limbus and then to construct a three- plane near-clear corneal tunnel extending 2.0mm into clear cornea superiortemporally. A flap was raised on the anterior capsule and capsulorhexis forceps were used to complete a continuous curvilinear capsulorhexis of 5.0 mm. Balanced salt solution was then used to perform cortical cleaving hydrodissection and nuclear hydrodelineation until the lens could be freely rotated within the capsular bag. The lens nucleus was then disassembled and removed within the capsular bag and iris plane using phacoemulsification. Residual cortical material was removed using the I/A handpiece. The posterior capsule was carefully polished to remove as much residual lens epithelial cells as safely possible. The capsular bag was then inflated and the anterior chamber deepened with viscoelastic. The lens implant described above was inserted into the capsular bag using the FRANCI [place] Injector. A Kuglen hook was used to dial the IOL into position. Residual viscoelastic was then removed first from posterior to the IOL, then from the anterior chamber using the I/A handpiece. The lens implant was noted to center nicely within the capsular bag. The incisions were stromally hydrated, and the anterior chamber was reformed using BSS. Then 0.5cc of moxifloxacin 1.0mg/ml were injected into the capsular bag and anterior chamber. The incisions were checked with a Weck spear and found to be secure. Several drops of ophthalmic povidone-iodine 5% were then applied to the eye followed by two drops of Imprimis combination prednisolone/moxifloxacin/nepafenac solution. The drapes were removed and a clear plastic protective eye shield was placed over the eye. The patient was then returned to [facility] Day Surgery in stable condition.
--- NOTE | 2021-04-27 12:22 | W.ANESPOSTOP ---
Postoperative Evaluation Date, Time and Location Date Performed: 04/27/21 Time Performed: 12:09 Patient Location: Day Surgery Unit Vital Signs Most Recent Imported Vital Signs: Most Recent Vital Signs Temp Pulse Resp BP Pulse Ox 36.3 C L 83 18 137/91 H 94 04/27/21 12:05 04/27/21 12:05 04/27/21 12:05 04/27/21 12:05 04/27/21 12:05 Pain Score Most Recent Pain Score: Most Recent Pain Score Pain Level 0 04/27/21 12:05 Assessment Mental Status: Awake (Alert & Oriented to Patient Baseline) Airway and Respiratory Function: Patent airway with normal (patient baseline) respiratory exam Cardiovascular Function: Hemodynamically Stable Hydration Status: Adequately Hydrated Nausea & Vomiting: No Nausea or Vomiting Pain: Pt. Denies Any Pain Peripheral Nerve Block: Patient did not receive a nerve block
== END 2021-04-27 13:25 | disposition home or self-care (01) ==
PROVIDERS: PCP Family Medicine; Visit Provider Ophthalmology
PROC: (CPT 66984; principal; 2021-04-27 13:30)
DX: H25.11 Age-related nuclear cataract, right eye (principal); J44.9 Chronic obstructive pulmonary disease, unspecified; I10 Essential (primary) hypertension
CPT/HCPCS: 66984; V2632

== ENCOUNTER 2021-12-14 16:14 | Emergency (ER) | payer MEDICARE, MEDICAID, SELFPAY ==
[2021-12-14 16:19] VITALS: BP 105/87; PULSE 102; RESP 18; TEMP 36.4; O2SAT 95
--- NOTE | 2021-12-14 16:50 | W.ED.GENAD ---
Discharge Plan Disposition Patient Disposition: HOME Condition: Improving Discharge Details Clinical Impression: Acute exacerbation of chronic low back pain Primary Care Provider: Ta Barker ED Provider: Mariusz Marroquin Home Meds and New Rx's Prescriptions: Continued Advair HFA 115-21 mcg/actuation HFA aerosol inhaler 2 puff IH BID 0RF gabapentin 300 mg capsule 300 mg PO QID 0RF Label Comments: 04/13/21 Pt reports dosing changed. hydroxyzine HCl 25 mg tablet 25 mg PO QID PRN0RF pramipexole 1 mg tablet 1 mg PO TID 0RF prochlorperazine maleate 10 mg tablet 10 mg PO TID 0RF trazodone 100 mg tablet 300 mg PO HS 0RF levothyroxine 88 mcg capsule 88 mcg PO DAILY 0RF testosterone cypionate [Depo-Testosterone] 200 mg/mL oil 200 mg IM Q2W Qty: 1 5RF Rx Instructions: pt will receive 200 mg injection every 2 weeks omeprazole 40 mg capsule,delayed release(DR/EC) 40 mg PO DAILY 0RF metoclopramide HCl 5 mg tablet 5 mg PO DAILY 0RF gabapentin 600 mg tablet 600 mg QID 0RF Label Comments: TAKE 1 TABLET EVERY MORNING AND 1 TABLET EARLY AFTERNOON WITH 2 TABLETS AT BEDTIME ibuprofen 600 mg tablet 600 mg PO QID PRN0RF Label Comments: TAKE ONE TABLET BY MOUTH FOUR TIMES A DAY NEEDED FOR 30 DAYS WITH FOOD albuterol sulfate 90 mcg/actuation HFA aerosol inhaler 2 puff INHALATION Q3-5H 0RF Label Comments: INHALE TWO PUFFS BY MOUTH EVERY 3 HOURS NEEDED FOR 90 DAYS fexofenadine-pseudoephedrine 60-120 mg tablet extended release 12 hr 1 tab PO BID 0RF No Action hydrocodone-acetaminophen 10-325 mg tablet 1 tab PO Q6H MDD 6 PRN (Reason: pain) Qty: 30 0RF Discharge Instructions Instructions: Low Back Strain (ED) Additional Instructions: Please call [facility] neurosurgery on Friday for an urgent follow-up appointment. You may use the provided hydromorphone for flare of pain. Do not take at the same time as your trazodone, other narcotics, or with alcohol. To continue Tylenol or ibuprofen. Apply ice as you have been. Return if you develop difficulty with urination, new weakness, or any other acute concerns. [facility] emergency department will not be able to provide further narcotic analgesics for your back pain, you must see either your local physician, [facility] neurosurgery, or the pain clinic if you have an ongoing, increased need of pain control. Medical Decision Making 61-year-old male with chronic lumbar go. He has also chronic headaches for which she has daily prescription of hydrocodone 10 mg. He states his primary care has been unwilling to break this use of narcotic. Patient states he has had significant lumbar pain since having operative repair in 2019 and . Now reports months of progressive pain after a fall. He has planned follow-up with [facility] neurosurgery and planned repeat imaging. He has not had any new weakness, no urinary incontinence, or new traumatic injury. Patient denies any recent medical illness. The patient demonstrates ability to walk independently, he moved freely in the bed and was able to perform an impressive range of motion of his lower extremity. I do not appreciate new motor or sensory deficits and do not feel emergent imaging is indicated. I discussed with him acute management of his chronic pain flare. Patient was consented for single IM dose of analgesia and 4 tab for home. He will follow-up with [facility] neurosurgery as planned. [facility] General Mode of arrival: ambulatory. Date/Time Provider Initiated Documentation: 12/14/21 16:16. Information obtained by: patient. History of Present Illness 61 year old M presents to the emergency department with the chief complaint of Acute exacerbation of chronic back pain, described as moderate, Quality is described as dull, and is localized to the back. Patient distal. Patient started experiencing this month(s) and it has been intermittent. improves with Rest improves symptom(s), Movement worsens symptoms . Patient notes nausea/vomiting; denies rash, seizure, syncope and weakness. Patient did receive the following treatments prior to arrival, NSAID Related Data Home Medications Medication Instructions Recorded Confirmed fluticasone propionate 115 2 puff IH BID 12/07/18 12/14/21 mcg-salmeterol 21 mcg/actuation HFA inhaler (Advair HFA) gabapentin 300 mg capsule 300 mg PO QID 12/07/18 12/14/21 hydroxyzine HCl 25 mg tablet 25 mg PO QID PRN 12/07/18 12/14/21 pramipexole 1 mg tablet 1 mg PO TID 12/07/18 12/14/21 prochlorperazine maleate 10 mg 10 mg PO TID tab 12/07/18 12/14/21 tablet trazodone 100 mg tablet 300 mg PO HS 12/07/18 12/14/21 hydrocodone 10 mg-acetaminophen 1 tab PO Q6H PRN #30 tab MDD 6 01/07/19 12/14/21 325 mg tablet levothyroxine 88 mcg capsule 88 mcg PO DAILY 04/18/20 12/14/21 metoclopramide HCl 5 mg tablet 5 mg PO DAILY 04/13/21 12/14/21 omeprazole 40 mg capsule,delayed 40 mg PO DAILY 04/13/21 12/14/21 release albuterol sulfate 90 mcg/actuation 2 puff INHALATION Q3-5H 04/27/21 12/14/21 aerosol inhaler fexofenadine 60 mg-pseudoephedrine 1 tab PO BID 04/27/21 12/14/21 ER 120 mg tablet,ext.release,12 hr gabapentin 600 mg tablet 600 mg QID 04/27/21 12/14/21 ibuprofen 600 mg tablet 600 mg PO QID PRN 04/27/21 04/27/21 testosterone cypionate 200 mg/mL 200 mg IM Q2W #1 ml 10/25/21 intramuscular oil (Depo-Testosterone) Previous Rx's Medication Instructions Recorded hydrocodone 10 mg-acetaminophen 1 tab PO Q6H PRN #30 tab MDD 6 01/07/19 325 mg tablet testosterone cypionate 200 mg/mL 200 mg IM Q2W #1 ml 10/25/21 intramuscular oil (Depo-Testosterone) Allergies Allergy/AdvReac Type Severity Reaction Status Date / Time codeine Allergy itching Verified 04/27/21 10:44 cyclobenzaprine Allergy Verified 04/27/21 10:44 [From Flexeril] aspirin AdvReac stomach Verified 04/27/21 10:46 concerns risperidone [From Risperdal] AdvReac N&V Verified 04/27/21 10:46 rofecoxib [From Vioxx] AdvReac palpitation Verified 04/27/21 10:46 s General Stated Complaint: Orthopedic ALEX: 4 Review of Systems Narrative: No change to urinary pattern. No motor weakness or new numbness. Has some chronic numbness of the bottom of his feet that is unchanged. Has follow-up planned with [place] neurosurgery. 8 systems were reviewed and otherwise negative. PFSH All Active Problems (Updated 12/14/21 @ 16:55 by Mariusz Marroquin MD) Acute exacerbation of chronic low back pain (Acute) Cortical cataract of left eye (Acute) Hypogonadism in male (Acute) Spermatocele of epididymis, multiple (Acute) Medical History Cervical disc disease COPD (chronic obstructive pulmonary disease) Depression GERD (gastroesophageal reflux disease) History of back injury History of hypothyroidism Hyperlipidemia Hypertension Lumbar disc disease Neuropathy Seizure Sleep apnea Surgical History H/O carpal tunnel repair H/O eye surgery foreign body removal H/O hernia repair History of back surgery History of orthopedic surgery finger mass Hx of arthroscopy of knee Hx of cataract surgery Hx of shoulder surgery left Hx of tonsillectomy Social History Smoking/Tobacco Use Status: Current every day Tobacco Type: cigarettes Tobacco: How many years used: 40 Smoking risk assessment performed?: Yes Alcohol Intake: never Substance use type: does not use Do you feel safe at home: Yes Do you feel safe in your relationship?: Yes Exam Narrative Exam Narrative: GEN: awake, alert, oriented 3. Pleasant, well groomed, interactive. HEAD: Normocephalic, atraumatic ENT: Mucous membranes moist, oropharynx unremarkable, External ear exam unremarkable EYES: PERRL, EOMI NECK: Full ROM, no JOSÉ, no menigismus CHEST/RESP: Nontender, clear to auscultation bilateral, no wheeze/rhonchi/rales CARDIOVASCULAR: RRR, no murmur, rub sidney. 2+ Rad pulse bilateral ABDOMEN: Soft, nontender, no mass. +Bowel sounds Back: Lumbar vertically oriented surgical incisions are well-healed. Patient has some mild tenderness overlying the lumbar region. EXT: Full ROM, motor is rated 5 out of 5 both flexion and extension of the lower extremity. 1+ patellar reflex with augmentation bilaterally. Diminished sensation distally over right lateral malleolus. Great toe proprioception intact bilaterally. Patient able ambulate on his own. Sensation within the saddle distribution was normal and perirectal sensation was normal. Neuro: Grossly normal neurologic exam, conversant, interactive. Psych: Speech fluent, thoughts congruent, affect normal Course Vital Signs Vital signs: Vital Signs Temperature 36.4 C L 12/14/21 16:19 Pulse 102 H 12/14/21 16:19 Respiratory Rate 18 12/14/21 16:19 Blood Pressure 105/87 12/14/21 16:19 Pulse Oximetry 95 12/14/21 16:19 Temperature 36.4 C L 12/14/21 16:19 Temperature Source Tympanic 12/14/21 16:19 Pulse 102 H 12/14/21 16:19 Respiratory Rate 18 12/14/21 16:19 Respiratory Effort 12/14/21 16:22 Blood Pressure 105/87 12/14/21 16:19 Blood Pressure Position Supine 12/14/21 16:19 Pulse Oximetry 95 12/14/21 16:19 Oxygen Delivery Method Nasal Cannula 12/14/21 16:19 Pain Level 10 12/14/21 16:19
[2021-12-14] MEDS: HYDROmorphone 2 MG/ML VIAL 1 MG IM (17:02)
[2021-12-14 17:09] VITALS: BP 124/88; PULSE 86; RESP 18; TEMP 36.4; O2SAT 96
== END 2021-12-14 17:07 | disposition home or self-care (01) ==
PROVIDERS: Emergency Provider Emergency Medicine; PCP Family Medicine
DX: M54.50 Low back pain, unspecified (principal); G89.29 Other chronic pain
CPT/HCPCS: 96372; 99284; 99283

== ENCOUNTER 2022-02-08 02:00 | Outpatient (CLI) | payer MEDICARE, MEDICAID, SELFPAY ==
[2022-02-12 09:22] LABS: Testosterone, Total 751 ng/dL (240-950)
== END 2022-02-08 02:01 | disposition home or self-care (01) ==
LOC: LBO 02:01
PROVIDERS: Urology; PCP Family Medicine; Visit Provider Nurse Practitioner Gerontology
DX: E29.1 Testicular hypofunction (principal)
CPT/HCPCS: 36415; 84403

== ENCOUNTER 2022-02-17 13:45 | Emergency (ER) | payer OTHER, MEDICAID, SELFPAY ==
[2022-02-17 14:08] VITALS: BP 143/102; PULSE 86; RESP 18; TEMP 36.9; O2SAT 96
--- NOTE | 2022-02-17 15:15 | DI.RAD_ITS ---
Exam(s) XR CHEST 2V PA LATERAL EXAM: XR CHEST 2V PA LATERAL CLINICAL HISTORY: Cough, [place] POp R/O PNthx. TECHNIQUE: 2D digital imaging was performed. COMPARISON: No exams were available for comparison FINDINGS: 2 views: Heart size is normal. The mediastinum is not widened. COPD findings. Small 5 millimeter nodular density in the lateral left lung base noted. Possibly nghia ast nipple. No prominent confluent ventral traits. No pleural effusions. No Panchito B lines. No compression fractures. IMPRESSION: COPD findings. Increased pulmonary markings but no confluent infiltrates. Small 5 millimeter nodule lateral left lung base noted, noncalcified. If clinically indicated follow-up CT scan can be perfor med. DATA REPOSITORY: RADIATION DOSE DELIVERED:
--- NOTE | 2022-02-17 15:52 | ED.GENADUL_ITS ---
Discharge Plan Disposition Patient Disposition: HOME Condition: Stable Discharge Details Clinical Impression: Sinusitis, Bronchitis Primary Care Provider: Ta Barker ED Provider: Shala Cassidy Home Meds and New Rx's Prescriptions: New prednisone 20 mg tablet 60 mg PO DAILY 5 Days Qty: 15 0RF amoxicillin-pot clavulanate 875-125 mg tablet 1 tab PO BID 7 Days Qty: 14 0RF No Action Advair HFA 115-21 mcg/actuation HFA aerosol inhaler 2 puff IH BID gabapentin 300 mg capsule 300 mg PO QID Label Comments: 04/13/21 Pt reports dosing changed. hydroxyzine HCl 25 mg tablet 25 mg PO QID PRN pramipexole 1 mg tablet 1 mg PO TID prochlorperazine maleate 10 mg tablet 10 mg PO TID trazodone 100 mg tablet 300 mg PO HS hydrocodone-acetaminophen 10-325 mg tablet 1 tab PO Q6H MDD 6 PRN (Reason: pain) Qty: 30 0RF testosterone cypionate [Depo-Testosterone] 200 mg/mL oil 200 mg IM Q2W Qty: 10 5RF Rx Instructions: pt will receive 200 mg injection every 2 weeks nystatin-triamcinolone 100,000-0.1 unit/g-% cream 1 applic topical TID Qty: 30 1RF levothyroxine 88 mcg capsule 88 mcg PO DAILY omeprazole 40 mg capsule,delayed release(DR/EC) 40 mg PO DAILY metoclopramide HCl 5 mg tablet 5 mg PO DAILY gabapentin 600 mg tablet 600 mg QID Label Comments: TAKE 1 TABLET EVERY MORNING AND 1 TABLET EARLY AFTERNOON WITH 2 TABLETS AT BEDTIME ibuprofen 600 mg tablet 600 mg PO QID PRN Label Comments: TAKE ONE TABLET BY MOUTH FOUR TIMES A DAY NEEDED FOR 30 DAYS WITH FOOD albuterol sulfate 90 mcg/actuation HFA aerosol inhaler 2 puff INHALATION Q3-5H Label Comments: INHALE TWO PUFFS BY MOUTH EVERY 3 HOURS NEEDED FOR 90 DAYS fexofenadine-pseudoephedrine 60-120 mg tablet extended release 12 hr 1 tab PO BID hydrocodone-acetaminophen 10-325 mg tablet PO Q6H Label Comments: TAKE 1 TABLET BY MOUTH 4 TIMES DAILY NEEDED FOR 28 DAYS Discharge Instructions Instructions: Sinusitis (ED), Acute Bronchitis (ED) Additional Instructions: Take the antibiotic and prednisone as directed. Use your already prescribed inhalers. Please take Tylenol or Ibuprofen with food every 4-6 hours as needed for pain and swelling. Follow up with primary care provider in 3-5 days. Return to ED sooner if any worsening or concerns. Increase oral fluids. Please try to stop smoking. At this time I will treat you for possible sinusitis based on the length of your symptoms. The x-ray shows no evidence for pneumonia. However the antibiotic will cover both sinusitis and possible pneumonia. Referrals: Ta Barker [Primary Care Provider] - 5 days Medical Decision Making 61-year-old male with a past medical history of COPD, depression, GERD, hypertension, hyperlipidemia, seizure, neuropathy sleep apnea presents with cough, green mucus from his sinuses sinus pressure. He does have a congested cough. He does smoke 2 cigarettes a day. She reports feeling worse over the last couple of days sinus drainage for 2 weeks. He reports feeling a pop to his right lateral chest wall area. He has clear lung sounds bilaterally to auscultation. No obvious deformity or crepitus palpated. Does have some congestion noted anteriorly. Chest x-ray ordered to rule out pneumonia, Augmentin given for sinusitis and to cover for possible pneumonia prednisone. Patient has been taking Tylenol ibuprofen little to no relief. X-ray results noted below. Bronchial wall thickening without convincing evidence of pneumonia. There is right-sided apical lung scarring no consolidation reported. Due to patient's symptoms and length of illness will place patient on Augmentin twice daily and give prednisone. Medical Records Medical records reviewed: Yes I reviewed the patient's medical records. Imaging Data Radiologic Study: Imaging: X-Ray Radiologist's impression: Imaging protocol: Radiologic exam of the chest. Views: 2 views. COMPARISON: No relevant images were readily available for comparison purposes. FINDINGS: Lungs: Suspected right apical lung scarring. no consolidation. bronchial wall thickening. Pleural spaces: no pneumothorax. no sizable pleural effusion. Heart/Mediastinum: Cardiomediastinal silhouette is within normal limits. Bones/joints: no acute displaced fracture. IMPRESSION: Bronchial wall thickening suggestive of airways disease without convincing evidence of pneumonia at this time. Thank you for allowing us to participate in the care of your patient. Dictated and Authenticated by: Andrea Carpenter DO HPI General Mode of arrival: ambulatory . Date/Time Provider Initiated Documentation: 02/17/22 13:56 . Limitations to Documentation: no limitations . Information obtained by: patient, RN notes reviewed and old records reviewed . HPI Narrative: 61-year-old male with a past medical history of COPD, depression, GERD, hypertension, hyperlipidemia, seizure, neuropathy sleep apnea presents with cough, green mucus from his sinuses sinus pressure. He does have a congested cough. He does smoke 2 cigarettes a day. he reports feeling worse over the last couple of days sinus drainage for 2 weeks. He reports feeling a pop to his right lateral chest wall area. Related Data Home Medications Medication Instructions Recorded Confirmed fluticasone propionate 115 2 puff inhalation BID 12/07/18 02/17/22 mcg-salmeterol 21 mcg/actuation HFA inhaler (Advair HFA) gabapentin 300 mg capsule 300 mg PO QID 12/07/18 02/17/22 hydroxyzine HCl 25 mg tablet 25 mg PO QID PRN 12/07/18 02/17/22 pramipexole 1 mg tablet 1 mg PO TID 12/07/18 02/17/22 prochlorperazine maleate 10 mg 10 mg PO TID 12/07/18 02/17/22 tablet trazodone 100 mg tablet 300 mg PO HS 12/07/18 02/17/22 hydrocodone 10 mg-acetaminophen 1 tab PO Q6H PRN pain #30 tabs 01/07/19 02/17/22 325 mg tablet levothyroxine 88 mcg capsule 88 mcg PO DAILY 04/18/20 02/17/22 metoclopramide HCl 5 mg tablet 5 mg PO DAILY 04/13/21 02/17/22 omeprazole 40 mg capsule,delayed 40 mg PO DAILY 04/13/21 02/17/22 release albuterol sulfate 90 mcg/actuation 2 puff inhalation Q3-5H 04/27/21 02/17/22 aerosol inhaler fexofenadine 60 mg-pseudoephedrine 1 tab PO BID 04/27/21 02/17/22 ER 120 mg tablet,ext.release,12 hr gabapentin 600 mg tablet 600 mg QID 04/27/21 02/17/22 ibuprofen 600 mg tablet 600 mg PO QID PRN 04/27/21 02/17/22 nystatin-triamcinolone 100,000 1 applic topical TID #30 grams 02/15/22 02/17/22 unit/g-0.1 % topical cream testosterone cypionate 200 mg/mL 200 mg IM Q2W hypogonadism #10 mL 02/15/22 02/17/22 intramuscular oil (Depo-Testosterone) amoxicillin 875 mg-potassium 1 tab PO BID 7 days #14 tabs 02/17/22 clavulanate 125 mg tablet hydrocodone 10 mg-acetaminophen tab PO Q6H 02/17/22 325 mg tablet prednisone 20 mg tablet 60 mg PO DAILY 5 days #15 tabs 02/17/22 Previous Rx's Medication Instructions Recorded hydrocodone 10 mg-acetaminophen 1 tab PO Q6H PRN pain #30 tabs 01/07/19 325 mg tablet nystatin-triamcinolone 100,000 1 applic topical TID #30 grams 02/15/22 unit/g-0.1 % topical cream testosterone cypionate 200 mg/mL 200 mg IM Q2W hypogonadism #10 mL 02/15/22 intramuscular oil (Depo-Testosterone) amoxicillin 875 mg-potassium 1 tab PO BID 7 days #14 tabs 02/17/22 clavulanate 125 mg tablet prednisone 20 mg tablet 60 mg PO DAILY 5 days #15 tabs 02/17/22 Allergies Allergy/AdvReac Type Severity Reaction Status Date / Time codeine Allergy itching Verified 02/17/22 14:12 cyclobenzaprine Allergy Verified 02/17/22 14:12 [From Flexeril] aspirin AdvReac stomach Verified 02/17/22 14:12 concerns risperidone [From Risperdal] AdvReac N&V Verified 02/17/22 14:12 rofecoxib [From Vioxx] AdvReac palpitation Verified 02/17/22 14:12 s General Stated Complaint: Chest/Rib ALEX: 3 Review of Systems All systems reviewed & are unremarkable except as noted in HPI and below ENT Ears, Nose, Mouth, and Throat: Denies change in voice, Reports nasal congestion, Reports sinus pain and Reports sinus pressure Cardiovascular Cardiovascular: Denies chest pain and Reports dyspnea Respiratory Respiratory: Reports chest congestion, Reports cough, Denies hemoptysis, Reports pain with cough and Reports dyspnea Gastrointestinal Gastrointestinal: Denies diarrhea, Denies nausea and Denies vomiting PFSH All Active Problems (Updated 02/17/22 @ 16:33 by Shala Cassidy NP) Sinusitis (Acute) Bronchitis (Acute) Cortical cataract of left eye (Acute) Hypogonadism in male (Acute) Spermatocele of epididymis, multiple (Acute) Medical History Cervical disc disease COPD (chronic obstructive pulmonary disease) Depression GERD (gastroesophageal reflux disease) History of back injury History of hypothyroidism Hyperlipidemia Hypertension Lumbar disc disease Neuropathy Seizure Sleep apnea Surgical History H/O carpal tunnel repair H/O eye surgery foreign body removal H/O hernia repair History of back surgery History of orthopedic surgery finger mass Hx of arthroscopy of knee Hx of cataract surgery Hx of shoulder surgery left Hx of tonsillectomy Social History Smoking/Tobacco Use Status: Current every day Tobacco Type: cigarettes Tobacco: How many years used: 40 Smoking risk assessment performed?: Yes Alcohol Intake: never Substance use type: does not use Do you feel safe at home: Yes Do you feel safe in your relationship?: Yes Exam Narrative Exam Narrative: Constitutional: Alert and oriented x3. Appears stated age. Normal body habitus. Head: Normocephalic, no trauma. Eyes: Pupils PERRL, Red reflex noted, EOM's intact. Eyelids symmetrical without lesions, discharge, or swelling. ENT: Bilateral TM's WNL, External ear normal to inspection, no mastoid TTP, swelling, or erythema, Nasal turbinates boggy nasal turbinates, poor dentition, Posterior pharynx WNL, no exudate. No sinus tenderness with palpation frontal and maxillary sinuses. Chest: RRR, Normal S1, S2, distal pulses intact. Resp: Rhonchi noted anteriorly, lungs clear to auscultation bilaterally posteriorly. No wheezing no tachypnea no increased work of breathing. Abdomen: Soft, non-distended, Normoactive bowel sounds all 4 quads. Musculoskeletal: Normal gait, 5/5 strength to all four extremities. Skin: No suspicious rashes or lesions. Capillary refill less than 2 sec. Neurologic: Cranial nerves II-XII intact. Alert and oriented x 3. Motor: No deficits noted. Sensory: Intact bilaterally all 4 extremities. Reflexes: DTR's intact bilaterally.. Hematologic/Lymphatic: No ecchymosis, no lymphadenopathy. Course Vital Signs Vital signs: Vital Signs Temperature 36.9 C 02/17/22 14:08 Pulse 86 02/17/22 14:08 Respiratory Rate 18 02/17/22 14:08 Blood Pressure 143/102 H 02/17/22 14:08 Pulse Oximetry 96 02/17/22 14:08 Temperature 36.9 C 02/17/22 14:08 Temperature Source Tympanic 02/17/22 14:08 Pulse 86 02/17/22 14:08 Respiratory Rate 18 02/17/22 14:08 Blood Pressure 143/102 H 02/17/22 14:08 Blood Pressure Position Sitting 02/17/22 14:08 Pulse Oximetry 96 02/17/22 14:08 Oxygen Delivery Method Room Air 02/17/22 14:08 Oxygen Flow Rate 0 02/17/22 14:08 Pain Level 9 02/17/22 14:08 Comment 02/17/22 14:08
[2022-02-17] MEDS: predniSONE 20 MG TAB 40 MG PO (16:01)
[2022-02-17] MEDS: Amoxicillin 875/Clav. 125 TAB PO (16:02)
--- NOTE | 2022-02-17 16:18 | DI.VRAD_ITS ---
PROCEDURE INFORMATION: Exam: XR Chest Exam date and time: 02/17/2022 4:08 PM Age: 61 years old Clinical indication: Other: Cough, felt pop R/O pnthx TECHNIQUE: Imaging protocol: Radiologic exam of the chest. Views: 2 views. COMPARISON: No relevant images were readily available for comparison purposes. FINDINGS: Lungs: Suspected right apical lung scarring. no consolidation. bronchial wall thickening. Pleural spaces: no pneumothorax. no sizable pleural effusion. Heart/Mediastinum: Cardiomediastinal silhouette is within normal limits. Bones/joints: no acute displaced fracture. IMPRESSION: Bronchial wall thickening suggestive of airways disease without convincing evidence of pneumonia at this time. Dictated and Authenticated by: Andrea Carpenter MD. Ordering:ROGELIO Last MD
[2022-02-17 16:48] VITALS: PULSE 85; RESP 16; O2SAT 97
== END 2022-02-17 16:44 | disposition home or self-care (01) ==
PROVIDERS: Emergency Provider Registered Nurse Emergency; PCP Family Medicine
DX: J32.9 Chronic sinusitis, unspecified (principal); J44.9 Chronic obstructive pulmonary disease, unspecified; I10 Essential (primary) hypertension; F17.210 Nicotine dependence, cigarettes, uncomplicated; Z79.51 Long term (current) use of inhaled steroids
CPT/HCPCS: 99283; 71046; 99284; J7512

== ENCOUNTER 2022-07-19 13:04 | Emergency (ER) | payer OTHER, MEDICAID, SELFPAY ==
[2022-07-19 13:10] VITALS: BP 134/84; PULSE 102; RESP 18; TEMP 36.8; O2SAT 95
[2022-07-19 14:37] VITALS: BP 126/85; PULSE 103; TEMP 36.6; O2SAT 92
--- NOTE | 2022-07-19 15:07 | NUR.NOTE ---
patient left without being seen:
== END 2022-07-19 15:07 | disposition left against medical advice (07) ==
LOC: ER 13:12
PROVIDERS: PCP Family Medicine
DX: Z53.21 Procedure and treatment not carried out due to patient leaving prior to being seen by health care provider (principal)

== ENCOUNTER → 2022-08-23 13:20 | Outpatient (BNVA) | payer OTHER, MEDICAID, SELFPAY | PROVIDERS: PCP Family Medicine; Referring Provider Family Medicine; Visit Provider Urology | DX: E29.1 Testicular hypofunction (principal); N40.1 Benign prostatic hyperplasia with lower urinary tract symptoms; R39.11 Hesitancy of micturition | CPT/HCPCS: 99442 ==

== ENCOUNTER → 2022-11-06 14:29 | Outpatient (BNVA) | payer OTHER, MEDICAID, SELFPAY | PROVIDERS: PCP Family Medicine; Referring Provider Family Medicine; Visit Provider Nurse Practitioner Gerontology | DX: N40.1 Benign prostatic hyperplasia with lower urinary tract symptoms (principal); R39.11 Hesitancy of micturition | CPT/HCPCS: 36415; 51798; 99213 ==

== ENCOUNTER 2022-11-06 15:13 | Outpatient (REF) | payer OTHER, MEDICAID, SELFPAY ==
[2022-11-07 19:41] LABS: PSA, Diagnostic 1.3 ng/mL (<=4.5)
== END 2022-11-06 15:14 | disposition home or self-care (01) ==
LOC: LBN 15:13
PROVIDERS: PCP Family Medicine; Visit Provider Nurse Practitioner Gerontology
DX: R39.11 Hesitancy of micturition (principal); N40.1 Benign prostatic hyperplasia with lower urinary tract symptoms
CPT/HCPCS: 84153

== ENCOUNTER 2023-02-24 16:42 | Emergency (ER) | payer OTHER, MEDICAID, SELFPAY ==
[2023-02-24 17:02] VITALS: BP 163/143; PULSE 95; RESP 18; TEMP 37.2; O2SAT 95
[2023-02-24 19:28] VITALS: BP 132/93; PULSE 93; TEMP 37; O2SAT 94
[2023-02-24] MEDS: predniSONE 20 MG TAB 40 MG PO (20:25)
[2023-02-24] MEDS: Amoxicillin 875/Clav. 125 TAB PO (20:25)
[2023-02-24] MEDS: Nystatin 500000 UNITS/5 ML SUSP 5ML CUP PO (20:25)
--- NOTE | 2023-02-25 12:10 | ED.GENADUL_ITS ---
Discharge Plan Disposition Patient Disposition: Home Discharge Details Clinical Impression: Oral thrush, Otitis media, Bronchitis Primary Care Provider: Dg Nicole ED Provider: Brenda Hidalgo Home Meds and New Rx's Prescriptions: New amoxicillin-pot clavulanate 875-125 mg tablet 1 tab PO BID Qty: 10 0RF prednisone 10 mg tablet 10 mg PO DIRECTED Qty: 35 0RF Rx Instructions: Take 4 tabs for 3 days followed by 3 tabs for 3 days followed by 2 tabs for 2 days followed by 1 tab for 1 day Continued Advair HFA 115-21 mcg/actuation HFA aerosol inhaler 2 puff IH BID gabapentin 300 mg capsule 300 mg PO QID Patient Comments: 04/13/21 Pt reports dosing changed. pramipexole 1 mg tablet 1 mg PO TID prochlorperazine maleate 10 mg tablet 10 mg PO TID trazodone 100 mg tablet 300 mg PO HS hydroxyzine HCl 25 mg tablet 50 mg PO QID PRN hydrocodone-acetaminophen 10-325 mg tablet 1 tab PO Q6H MDD 6 PRN (Reason: pain) Qty: 30 0RF polyethylene glycol 3350 [Miralax] 17 gram/dose powder 17 g PO DAILY mometasone 50 mcg/actuation spray,non-aerosol 2 spray intranasal DAILY Rx Instructions: administer into each nostril perphenazine 4 mg tablet 4 mg PO BID furosemide [Lasix] 40 mg tablet 40 mg PO DAILY tadalafil [Cialis] 5 mg tablet 5 mg PO DAILY Qty: 90 4RF levothyroxine 88 mcg capsule 88 mcg PO DAILY acyclovir 200 mg capsule 200 mg PO 5X/DAY PRN atorvastatin 40 mg tablet 40 mg PO DAILY doxycycline hyclate 100 mg tablet 100 mg PO DAILY famotidine 40 mg tablet 40 mg PO QHS lidocaine [Aspercreme (lidocaine)] 4 % adhesive patch,medicated 1 patch topical BID PRN loratadine [Allergy Relief (loratadine)] 10 mg tablet 10 mg PO DAILY methocarbamol 750 mg tablet 750 mg PO Q4H PRN testosterone cypionate [Depo-Testosterone] 200 mg/mL oil 200 mg IM Q2W omeprazole 40 mg capsule,delayed release(DR/EC) 40 mg PO DAILY metoclopramide HCl 5 mg tablet 5 mg PO DAILY Patient Comments: up to QID (per pt's PCP med list) 08/2022 gabapentin 600 mg tablet 600 mg QID Patient Comments: TAKE 1 TABLET EVERY MORNING AND 1 TABLET EARLY AFTERNOON WITH 2 TABLETS AT BEDTIME ibuprofen 600 mg tablet 600 mg PO QID PRN Patient Comments: TAKE ONE TABLET BY MOUTH FOUR TIMES A DAY NEEDED FOR 30 DAYS WITH FOOD albuterol sulfate 90 mcg/actuation HFA aerosol inhaler 2 puff INHALATION Q3-5H Patient Comments: INHALE TWO PUFFS BY MOUTH EVERY 3 HOURS NEEDED FOR 90 DAYS fexofenadine-pseudoephedrine 60-120 mg tablet extended release 12 hr 1 tab PO BID Discharge Instructions Instructions: Ear Infection (ED), Acute Bronchitis (ED) Additional Instructions: Take the antibiotic as prescribed Yogurt daily with live active cultures while on antibiotics Take the prednisone as prescribed Use the nystatin for 2 to 3 days after the white discharge on your tongue and in your mouth and your sore throat has completely resolved Take Tylenol 650 every 4-6 hours Follow-up with your doctor in 3 to 4 days for reassessment and return earlier should you have new or worsening complaints Referrals: Dg Nicole [Primary Care Provider] - Discharge Data Discharge Date/Time-TO BE ENTERED AT DEPARTURE: 02/24/23 20:27 Medical Decision Making 62-year-old male, in no acute distress presenting with sore throat and ear pain Evidence of otitis media and oral thrush Placed on nystatin and Augmentin, will follow-up with primary care physician Florastor or yogurt daily Return precautions reviewed and patient expressed understanding, discharged home in stable condition with stable vitals, careful return precautions reviewed and patient expressed understanding HPI General Date/Time Provider Initiated Documentation: 02/24/23 17:06 . HPI Narrative: 62-year-old male presents with sore throat and ear pain that started today. He states he just finished antibiotics for suspected bronchitis. He denies stiff neck or current headache. Denies any fever or chills. Related Data Home Medications Medication Instructions Recorded Confirmed fluticasone propionate 115 2 puff inhalation BID 12/07/18 12/04/22 mcg-salmeterol 21 mcg/actuation HFA inhaler (Advair HFA) gabapentin 300 mg capsule 300 mg PO QID 12/07/18 12/04/22 pramipexole 1 mg tablet 1 mg PO TID 12/07/18 12/04/22 prochlorperazine maleate 10 mg 10 mg PO TID 12/07/18 12/04/22 tablet trazodone 100 mg tablet 300 mg PO HS 12/07/18 12/04/22 hydrocodone 10 mg-acetaminophen 1 tab PO Q6H PRN pain #30 tabs 01/07/19 12/04/22 325 mg tablet levothyroxine 88 mcg capsule 88 mcg PO DAILY 04/18/20 12/04/22 omeprazole 40 mg capsule,delayed 40 mg PO DAILY 04/13/21 12/04/22 release albuterol sulfate 90 mcg/actuation 2 puff inhalation Q3-5H 04/27/21 12/04/22 aerosol inhaler fexofenadine 60 mg-pseudoephedrine 1 tab PO BID 04/27/21 12/04/22 ER 120 mg tablet,ext.release,12 hr gabapentin 600 mg tablet 600 mg QID 04/27/21 12/04/22 ibuprofen 600 mg tablet 600 mg PO QID PRN 04/27/21 12/04/22 hydroxyzine HCl 25 mg tablet 50 mg PO QID PRN 09/10/22 12/04/22 metoclopramide HCl 5 mg tablet 5 mg PO DAILY 09/10/22 12/04/22 mometasone 50 mcg/actuation nasal 2 spray intranasal DAILY 09/10/22 12/04/22 spray perphenazine 4 mg tablet 4 mg PO BID 09/10/22 12/04/22 polyethylene glycol 3350 17 17 g PO DAILY 09/10/22 12/04/22 gram/dose oral powder (Miralax) acyclovir 200 mg capsule 200 mg PO 5X/DAY PRN 10/04/22 12/04/22 atorvastatin 40 mg tablet 40 mg PO DAILY 10/04/22 12/04/22 doxycycline hyclate 100 mg tablet 100 mg PO DAILY 10/04/22 12/04/22 famotidine 40 mg tablet 40 mg PO QHS 10/04/22 12/04/22 lidocaine 4 % topical patch 1 patch topical BID PRN 10/04/22 12/04/22 (Aspercreme (lidocaine)) loratadine 10 mg tablet (Allergy 10 mg PO DAILY 10/04/22 12/04/22 Relief (loratadine)) methocarbamol 750 mg tablet 750 mg PO Q4H PRN 10/04/22 12/04/22 testosterone cypionate 200 mg/mL 200 mg IM Q2W 10/04/22 12/04/22 intramuscular oil (Depo-Testosterone) furosemide 40 mg tablet (Lasix) 40 mg PO DAILY 11/06/22 12/04/22 tadalafil 5 mg tablet (Cialis) 5 mg PO DAILY urinary flow #90 tabs 11/06/22 12/04/22 amoxicillin 875 mg-potassium 1 tab PO BID #10 tabs 02/24/23 clavulanate 125 mg tablet prednisone 10 mg tablet 10 mg PO DIRECTED #35 tabs 02/24/23 Previous Rx's Medication Instructions Recorded hydrocodone 10 mg-acetaminophen 1 tab PO Q6H PRN pain #30 tabs 01/07/19 325 mg tablet tadalafil 5 mg tablet (Cialis) 5 mg PO DAILY urinary flow #90 tabs 11/06/22 amoxicillin 875 mg-potassium 1 tab PO BID #10 tabs 02/24/23 clavulanate 125 mg tablet prednisone 10 mg tablet 10 mg PO DIRECTED #35 tabs 02/24/23 Allergies Allergy/AdvReac Type Severity Reaction Status Date / Time codeine Allergy itching Verified 02/24/23 17:05 cyclobenzaprine Allergy Verified 02/24/23 17:05 [From Flexeril] lamotrigine AdvReac Intermediate sleep Verified 02/24/23 17:05 walking aspirin AdvReac stomach Verified 02/24/23 17:05 concerns risperidone [From Risperdal] AdvReac N&V Verified 02/24/23 17:05 rofecoxib [From Vioxx] AdvReac palpitation Verified 02/24/23 17:05 s General Stated Complaint: FacialProb ALEX: 4 PFSH All Active Problems (Updated 02/24/23 @ 20:17 by BRIAN Giron) Oral thrush (Acute) Otitis media (Acute) Bronchitis (Acute) Nail dystrophy (Acute) Pain, foot (Acute) Corns and callosities (Acute) Bipolar 1 disorder (Acute) Anemia (Chronic) Acquired talipes planus (Acute) Hallux varus (acquired) (Acute) Asthma (Chronic) IGT (impaired glucose tolerance) (Acute) Peripheral neuropathy (Acute) Benign prostatic hyperplasia with hesitancy (Acute) Cortical cataract of left eye (Acute) Hypogonadism in male (Acute) Spermatocele of epididymis, multiple (Acute) Medical History (Updated 02/24/23 @ 20:17 by BRIAN Giron) Acute hyponatremia Allergic rhinitis 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 Bilateral knee pain Cervical disc disease Cervicogenic headache Claustrophobia Closed fracture of lumbar vertebra Closed fracture of proximal end of humerus COPD (chronic obstructive pulmonary disease) Decreased testosterone level Degeneration of cervical intervertebral disc Degeneration of lumbar intervertebral disc Depression Disorder of upper respiratory system Fatigue Fibromyositis GERD (gastroesophageal reflux disease) Herpesviral vesicular dermatitis History of back injury History of hypothyroidism Hx of fracture of vertebral column Hyperlipidemia Hypertension Idiopathic peripheral neuropathy Injury of shoulder and upper arm Left atrial enlargement Lumbar disc disease Migraine Neuropathy Obstructive sleep apnea Onycholysis Pain in right knee Pain of left hip joint Pain of left shoulder joint on movement Psychophysiologic insomnia Restless legs Seizure Seizure disorder Sleep apnea Spermatocele Spondylolisthesis, lumbar region Tinea cruris Surgical History H/O carpal tunnel repair H/O eye surgery foreign body removal H/O hernia repair History of back surgery History of orthopedic surgery finger mass Hx of arthroscopy of knee Hx of cataract surgery Hx of shoulder surgery left Hx of tonsillectomy Family History (Updated 10/04/22 @ 10:46 by Tomasa Godoy RN) Mother Diabetes Heart disease Hypertension Father Hypertension Social History Smoking/Tobacco Use Status: Current every day Tobacco Type: cigarettes Tobacco: How many years used: 40 Smoking risk assessment performed?: Yes Alcohol Intake: never Drug use: Never Substance use type: does not use Do you feel safe at home: Yes Do you feel safe in your relationship?: Yes Exam Narrative Exam Narrative: 62-year-old male, alert and oriented, no significant acute distress, left ear, erythema to tympanic membrane, no mastoid tenderness, no drainage, oropharyngeal thrush, no trismus, oropharynx patent, uvula midline, no lymphadenopathy, lungs clear to auscultation, cardiac rate rhythm regular, alert and oriented x4, no rashes or lesions, no stiff neck's or meningismus, he was equal round reactive to light and accommodation, ambulatory steady gait Course Vital Signs Vital signs: Vital Signs Temperature 37.2 C 07/10/23 17:02 Pulse 95 H 02/24/23 17:02 Respiratory Rate 18 02/24/23 17:02 Blood Pressure 163/143 H 02/24/23 17:02 Pulse Oximetry 95 02/24/23 17:02 Temperature 37 C 02/24/23 19:28 Temperature Source Temporal Artery Scan 02/24/23 19:28 Pulse 93 H 02/24/23 19:28 Respiratory Rate 18 02/24/23 17:02 Respiratory Effort Normal 02/24/23 17:05 Blood Pressure 132/93 H 02/24/23 19:28 Blood Pressure Position Sitting 02/24/23 17:02 Pulse Oximetry 94 02/24/23 19:28 Oxygen Delivery Method Room Air 02/24/23 19:28 Oxygen Flow Rate 0 02/24/23 19:28 Pain Level 8 02/24/23 20:26
== END 2023-02-24 20:27 | disposition home or self-care (01) ==
PROVIDERS: Emergency Provider Physician Assistant; PCP Family Medicine
DX: B37.0 Candidal stomatitis (principal); H66.92 Otitis media, unspecified, left ear; J40 Bronchitis, not specified as acute or chronic; I10 Essential (primary) hypertension; F17.210 Nicotine dependence, cigarettes, uncomplicated
CPT/HCPCS: 99282; J7512

== ENCOUNTER 2023-05-09 11:49 | Emergency (ER) | payer OTHER, MEDICAID, SELFPAY ==
--- NOTE | 2023-05-09 | DI.CT_ITS ---
Exam(s) CT CHEST PE CTA EXAM: CT CHEST PE CTA CLINICAL HISTORY: elevated ddimer. TECHNIQUE: Imaging Protocol: Axial CT angiography was performed with multi-slice acquisition and mu lti-planar and/or 3D reconstructions. CONTRAST MATERIAL: Intravenous: Omnipaque 350 contrast volume:90 mL COMPARISON: No priors for comparison. FINDINGS: Tracheobronchial tree: Patent where visualized. Pulmonary parenchyma: Emphysematous changes are present in the lungs. Atelectatic changes are seen i n the lung bases. No focal consolidating infiltrates are seen. Pulmonary Arteries: No evidence of filling defect to suggest pulmonary emboli. Mediastinum and Marce: No dominant adenopathy or fluid collection. The esophagus is unremarkable. Visualized thyroid gland: Unremarkable. Pleura: No effusion or pneumothorax. Heart: The heart is not dilated. Mild coronary artery calcification. No pericardial effusion. Aorta: Thoracic aorta non-dilated. No evidence of dissection. Mild atherosclerosis. Upper abdomen: Unremarkable. Soft tissues: Unremarkable. Bones: Within normal limits for the patient's age.Old healed and nonunited rib fractures. IMPRESSION: 1. No evidence of pulmonary embolism, thoracic aortic dissection or aneurysm. 2. Chronic changes in the lungs including fibrosis and emphysema. 3. Findings were discussed with the emergency department at 5:30 p.m. on 05/09/2023. RADIATION DOSE DELIVERED: 456.17mGy.cm Total DLP DATA REPOSITORY: All CT scans at this facility are submitted to the National Radiology Data Registry (NRDR) Dose Index Registry (DIR) with the [employer] (A[employer]). RADIATION OPTIMIZATION: All CT scans at this facility use at least one of these dose optimization te chniques: automated exposure control; mA and/or kV adjustment per patient size (includes targeted exa ms where dose is matched to clinical indication); or iterative reconstruction.
[2023-05-09 11:55] VITALS: BP 144/119; PULSE 108; RESP 18; TEMP 35.8; O2SAT 95
--- NOTE | 2023-05-09 12:23 | W.ED.GENAD ---
Discharge Plan Discharge Details Chief Complaint: GenMedical Clinical Impression: Hoarseness of voice, Localized swelling of both lower extremities, Acute exacerbation of chronic low back pain Primary Care Provider: Dg Nicole ED Provider: Leonardo Pleitez [place] Meds and New Rx's Prescriptions: No Action Advair HFA 115-21 mcg/actuation HFA aerosol inhaler 2 puff IH BID gabapentin 300 mg capsule 300 mg PO QID Patient Comments: 04/13/21 Pt reports dosing changed. pramipexole 1 mg tablet 1 mg PO TID prochlorperazine maleate 10 mg tablet 10 mg PO TID trazodone 100 mg tablet 300 mg PO HS hydroxyzine HCl 25 mg tablet 50 mg PO QID PRN hydrocodone-acetaminophen 10-325 mg tablet 1 tab PO Q6H MDD 6 PRN (Reason: pain) Qty: 30 0RF polyethylene glycol 3350 [Miralax] 17 gram/dose powder 17 g PO DAILY mometasone 50 mcg/actuation spray,non-aerosol 2 spray intranasal DAILY Rx Instructions: administer into each nostril perphenazine 4 mg tablet 4 mg PO BID furosemide [Lasix] 40 mg tablet 40 mg PO DAILY tadalafil [Cialis] 5 mg tablet 5 mg PO DAILY Qty: 90 4RF levothyroxine 88 mcg capsule 88 mcg PO DAILY acyclovir 200 mg capsule 200 mg PO 5X/DAY PRN atorvastatin 40 mg tablet 40 mg PO DAILY doxycycline hyclate 100 mg tablet 100 mg PO DAILY famotidine 40 mg tablet 40 mg PO QHS lidocaine [Aspercreme (lidocaine)] 4 % adhesive patch,medicated 1 patch topical BID PRN loratadine [Allergy Relief (loratadine)] 10 mg tablet 10 mg PO DAILY methocarbamol 750 mg tablet 750 mg PO Q4H PRN testosterone cypionate [Depo-Testosterone] 200 mg/mL oil 200 mg IM Q2W omeprazole 40 mg capsule,delayed release(DR/EC) 40 mg PO DAILY metoclopramide HCl 5 mg tablet 5 mg PO DAILY Patient Comments: up to QID (per pt's PCP med list) 08/2022 gabapentin 600 mg tablet 600 mg QID Patient Comments: TAKE 1 TABLET EVERY MORNING AND 1 TABLET EARLY AFTERNOON WITH 2 TABLETS AT BEDTIME ibuprofen 600 mg tablet 600 mg PO QID PRN Patient Comments: TAKE ONE TABLET BY MOUTH FOUR TIMES A DAY NEEDED FOR 30 DAYS WITH FOOD albuterol sulfate 90 mcg/actuation HFA aerosol inhaler 2 puff INHALATION Q3-5H Patient Comments: INHALE TWO PUFFS BY MOUTH EVERY 3 HOURS NEEDED FOR 90 DAYS fexofenadine-pseudoephedrine 60-120 mg tablet extended release 12 hr 1 tab PO BID amoxicillin-pot clavulanate 875-125 mg tablet 1 tab PO BID Qty: 10 0RF prednisone 10 mg tablet 10 mg PO DIRECTED Qty: 35 0RF Rx Instructions: Take 4 tabs for 3 days followed by 3 tabs for 3 days followed by 2 tabs for 2 days followed by 1 tab for 1 day Medical Decision Making HPI This is a 62-year-old male with remote lumbar spinal fusion COPD and CHF now in the emergency department in the setting of leg pain shooting down from his back. Patient reports that he has had worsening pain in his lower back for the past several years. He has been increasingly weak and took a fall yesterday. He did not hit his head. He has also had swelling in his lower legs for the past several days. He also notes that he a ring on his right ring finger has become swollen and he cannot take it off. He reports that his pain is shooting down his back. He says that he smokes cigarettes every day. He has not had any increased sputum production. He has not lost control of his bowels nor bladder. He says that he has had to wear increasing underwear sizes recently as result of swelling in his bilateral lower extremities. He did not fall or hit his head. He denies chest pain nausea vomiting and abdominal pain.Patient lives with his . Exam General: Well-appearing in no acute distress speaking in complete sentences. Hoarse voice. Head: Normocephalic, atraumatic. Eye: Extraocular eye movements intact. No conjunctival injection. No scleral icterus. Ear, nose, mouth, throat: Grossly normal inspection. handling secretions normally. No signs of intraoral thrush. Uvula midline. Neck: Trachea midline. Cardiovascular: Well-perfused distal extremities. Rapid regular rate. Respiratory: Nonlabored respiration. Mild crackles bilaterally. Gastrointestinal: Nondistended abdomen. Musculoskeletal: Significant bilateral 2+ pitting lower extremity edema. Moving all 4 extremities spontaneously. Decreased reflexes patellar strike bilaterally. No clonus. 3-5 strength on dorsi and plantarflexion bilaterally. 5 out of 5 strength flexion extension at the knee. Skin: Normal for age and race, grossly normal temperature and turgor. No acute rash. Patient's right ring finger has a ring on it. His right ring finger is warm well perfused. He cannot remove his ring. Neurologic: Alert and appropriate, no apparent acute deficits. Psychiatric: Mood and manner are appropriate. Grooming and personal hygiene are appropriate. MDM This is a chronically ill-appearing mildly tachycardic but afebrile 62-year-old male with history of remote lumbar spinal fusion now with low back pain and leg weakness leading to a fall concerning for pathological fracture given outpatient prednisone use versus spinal epidural hematoma. No pain out of proportion to suggest necrotizing soft tissue infection. No loss of bowel nor bladder control to suggest increased risk for cauda equina. No rash to back to suggest zoster. No dysuria nor frequency to suggest UTI. Patient does appear mildly volume overloaded. He is requesting to have his ring cut off of his right ring finger. Given lower extremity pitting edema most concerned for possibility of CHF. Will complete bedside ultrasound and two-view chest x-ray and proBNP. Patient is on outpatient diuretics. We will also check basic labs. No chest pain to suggest ACS but given shortness of breath will obtain ECG and troponin testing. Patient is at slightly increased risk of ACS given his testosterone use. Soft nontender abdomen so doubt intra-abdominal process. No history of recent trauma to back so doubt fracture. Will reassess following labs and imaging. No wheezes no increased foul-smelling sputum production so doubt COPD exacerbation. Shortness of breath could certainly be the result of PE though patient is otherwise low risk so we will obtain a D-dimer. Given hoarse voice for several months and history of tobacco use I am suspicious of the possibility of malignancy. No signs of intra oral thrush to suggest benefit from nystatin. I have asked health critical care unit nurse Odalis to have the patient seen by ENT. I am not suspicious for retropharyngeal abscess given good range of motion in neck. Given midline uvula I am not suspicious for peritonsillar abscess. Multiple ED nurses and an emergency department automotive maintenance technician have attempted to remove the patient's right ring finger ring. He is not sure what kind of ring it is. He feels that it may be titanium. His finger is warm well perfused and does not appear ischemic at this point time. I have asked him to elevate his right ring finger. We have attempted to call the fire department and they did not have a ring finger. 3:24 PM Patient's D-dimer was mildly elevated and will obtain a CTA to assess for PE as that is positive when adjusted for age. Basic metabolic panel showing normal renal function. No significant hyperglycemia. No anion gap. Normal bicarbonate. Very mild hypokalemia. proBNP reassuring. Normal magnesium. Reassuring negative troponin. We unfortunately do not have a titanium and tungsten ring cutter blade available. Anticipate need to transfer patient to [facility] to have his ring removed. 3:45 PM Dio from [facility] came with a vice grocery packer and patient's stretcher was elevated. Dio was able to apply gradual pressure to the patient's ring which immediately shattered. As result patient most likely had a tungsten ring. I signed patient out to Patricia Gaston pending CT scan. Chronic conditions affecting the care of the patient: COPD with ongoing tobacco use History obtained from an outside historian: N/A External record review: N/A [Diagnostic interpretations performed by me:] [Per my independent interpretation EKG shows:] Narrow complex normal sinus rhythm at a rate of 81 with first-degree AV block and left axis deviation. No signs of LVH based on voltage criteria. No ST segment abnormalities. Poor R wave progression. No prior for comparison. No acute injury pattern. Medications: Acetaminophen for pain along Social determinants of health affecting disposition: N/A Management discussed with: Oncoming ED provider Treatment/interventions considered: IV diuresis but in the absence of any B-lines my suspicion for acute CHF is low. Response to therapies provided: N/A HPI General Date/Time Provider Initiated Documentation: 05/09/23 12:20. Related Data Home Medications Medication Instructions Recorded Confirmed fluticasone propionate 115 2 puff inhalation BID 12/07/18 12/04/22 mcg-salmeterol 21 mcg/actuation HFA inhaler (Advair HFA) gabapentin 300 mg capsule 300 mg PO QID 12/07/18 12/04/22 pramipexole 1 mg tablet 1 mg PO TID 12/07/18 12/04/22 prochlorperazine maleate 10 mg 10 mg PO TID 12/07/18 12/04/22 tablet trazodone 100 mg tablet 300 mg PO HS 12/07/18 12/04/22 hydrocodone 10 mg-acetaminophen 1 tab PO Q6H PRN pain #30 tabs 01/07/19 12/04/22 325 mg tablet levothyroxine 88 mcg capsule 88 mcg PO DAILY 04/18/20 12/04/22 omeprazole 40 mg capsule,delayed 40 mg PO DAILY 04/13/21 12/04/22 release albuterol sulfate 90 mcg/actuation 2 puff inhalation Q3-5H 04/27/21 12/04/22 aerosol inhaler fexofenadine 60 mg-pseudoephedrine 1 tab PO BID 04/27/21 12/04/22 ER 120 mg tablet,ext.release,12 hr gabapentin 600 mg tablet 600 mg QID 04/27/21 12/04/22 ibuprofen 600 mg tablet 600 mg PO QID PRN 04/27/21 12/04/22 hydroxyzine HCl 25 mg tablet 50 mg PO QID PRN 09/10/22 12/04/22 metoclopramide HCl 5 mg tablet 5 mg PO DAILY 09/10/22 12/04/22 mometasone 50 mcg/actuation nasal 2 spray intranasal DAILY 09/10/22 12/04/22 spray perphenazine 4 mg tablet 4 mg PO BID 09/10/22 12/04/22 polyethylene glycol 3350 17 17 g PO DAILY 09/10/22 12/04/22 gram/dose oral powder (Miralax) acyclovir 200 mg capsule 200 mg PO 5X/DAY PRN 10/04/22 12/04/22 atorvastatin 40 mg tablet 40 mg PO DAILY 10/04/22 12/04/22 doxycycline hyclate 100 mg tablet 100 mg PO DAILY 10/04/22 12/04/22 famotidine 40 mg tablet 40 mg PO QHS 10/04/22 12/04/22 lidocaine 4 % topical patch 1 patch topical BID PRN 10/04/22 12/04/22 (Aspercreme (lidocaine)) loratadine 10 mg tablet (Allergy 10 mg PO DAILY 10/04/22 12/04/22 Relief (loratadine)) methocarbamol 750 mg tablet 750 mg PO Q4H PRN 10/04/22 12/04/22 testosterone cypionate 200 mg/mL 200 mg IM Q2W 10/04/22 12/04/22 intramuscular oil (Depo-Testosterone) furosemide 40 mg tablet (Lasix) 40 mg PO DAILY 11/06/22 12/04/22 tadalafil 5 mg tablet (Cialis) 5 mg PO DAILY urinary flow #90 tabs 11/06/22 12/04/22 amoxicillin 875 mg-potassium 1 tab PO BID #10 tabs 02/24/23 clavulanate 125 mg tablet prednisone 10 mg tablet 10 mg PO DIRECTED #35 tabs 02/24/23 Previous Rx's Medication Instructions Recorded hydrocodone 10 mg-acetaminophen 1 tab PO Q6H PRN pain #30 tabs 01/07/19 325 mg tablet tadalafil 5 mg tablet (Cialis) 5 mg PO DAILY urinary flow #90 tabs 11/06/22 amoxicillin 875 mg-potassium 1 tab PO BID #10 tabs 02/24/23 clavulanate 125 mg tablet prednisone 10 mg tablet 10 mg PO DIRECTED #35 tabs 02/24/23 Allergies Allergy/AdvReac Type Severity Reaction Status Date / Time codeine Allergy itching Verified 02/24/23 17:05 cyclobenzaprine Allergy Verified 02/24/23 17:05 [From Flexeril] lamotrigine AdvReac Intermediate sleep Verified 02/24/23 17:05 walking aspirin AdvReac stomach Verified 02/24/23 17:05 concerns risperidone [From Risperdal] AdvReac N&V Verified 02/24/23 17:05 rofecoxib [From Vioxx] AdvReac palpitation Verified 02/24/23 17:05 s General Stated Complaint: GenMedical ALEX: 3 PFSH All Active Problems (Updated 05/09/23 @ 15:05 by Leonardo Pleitez MD) Hoarseness of voice (Acute) Localized swelling of both lower extremities (Acute) Acute exacerbation of chronic low back pain (Acute) Nail dystrophy (Acute) Pain, foot (Acute) Corns and callosities (Acute) Bipolar 1 disorder (Acute) Anemia (Chronic) Acquired talipes planus (Acute) Hallux varus (acquired) (Acute) Asthma (Chronic) IGT (impaired glucose tolerance) (Acute) Peripheral neuropathy (Acute) Benign prostatic hyperplasia with hesitancy (Acute) Cortical cataract of left eye (Acute) Hypogonadism in male (Acute) Spermatocele of epididymis, multiple (Acute) Medical History (Updated 05/09/23 @ 15:05 by Leonardo Pleitez MD) Acute hyponatremia Allergic rhinitis 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 Bilateral knee pain Cervical disc disease Cervicogenic headache Claustrophobia Closed fracture of lumbar vertebra Closed fracture of proximal end of humerus COPD (chronic obstructive pulmonary disease) Decreased testosterone level Degeneration of cervical intervertebral disc Degeneration of lumbar intervertebral disc Depression Disorder of upper respiratory system Fatigue Fibromyositis GERD (gastroesophageal reflux disease) Herpesviral vesicular dermatitis History of back injury History of hypothyroidism Hx of fracture of vertebral column Hyperlipidemia Hypertension Idiopathic peripheral neuropathy Injury of shoulder and upper arm Left atrial enlargement Lumbar disc disease Migraine Neuropathy Obstructive sleep apnea Onycholysis Pain in right knee Pain of left hip joint Pain of left shoulder joint on movement Psychophysiologic insomnia Restless legs Seizure Seizure disorder Sleep apnea Spermatocele Spondylolisthesis, lumbar region Tinea cruris Surgical History H/O carpal tunnel repair H/O eye surgery foreign body removal H/O hernia repair History of back surgery History of orthopedic surgery finger mass Hx of arthroscopy of knee Hx of cataract surgery Hx of shoulder surgery left Hx of tonsillectomy Family History (Updated 10/04/22 @ 10:46 by Tomasa Godoy RN) Mother Diabetes Heart disease Hypertension Father Hypertension Social History Smoking/Tobacco Use Status: Current every day Tobacco Type: cigarettes Tobacco: How many years used: 40 Smoking risk assessment performed?: Yes Alcohol Intake: never Drug use: Never Substance use type: does not use Do you feel safe at home: Yes Do you feel safe in your relationship?: Yes Course Vital Signs Vital signs: Vital Signs Temperature 35.8 C L 05/09/23 11:55 Pulse 108 H 05/09/23 11:55 Respiratory Rate 18 05/09/23 11:55 Blood Pressure 144/119 H 05/09/23 11:55 Pulse Oximetry 95 05/09/23 11:55 Temperature 35.8 C L 05/09/23 11:55 Temperature Source Skin 05/09/23 11:55 Pulse 108 H 05/09/23 11:55 Respiratory Rate 18 05/09/23 11:55 Blood Pressure 144/119 H 05/09/23 11:55 Blood Pressure Position Sitting 05/09/23 11:55 Pulse Oximetry 95 05/09/23 11:55 Oxygen Delivery Method Room Air 05/09/23 11:55 Oxygen Flow Rate 0 05/09/23 11:55 Pain Level 10 05/09/23 11:55 POCUS Exam (ED) Limited Cardiac Exam DATE OF EXAM: 05/09/23 TIME OF EXAM: 15:03 VISUALIZED STRUCTURES: Left ventricle, LVOT and Interventricular septum VIEW OBTAINED: Apical 4-Chamber, Parasternal long-axis and Subxiphoid DIFFERENTIAL DIAGNOSES: Good squeeze, aortic outflow track less than 4 cm, RV less than LV. No significant pericardial effusion. No B-lines bilaterally. Exam complete
--- NOTE | 2023-05-09 12:30 | DI.MRI_ITS ---
Exam(s) MR THORACIC SPINE WO EXAM: MR THORACIC SPINE WO CLINICAL HISTORY: Low back pain history of weakness following and womack. TECHNIQUE: Multiplanar multisequence MRI of the Thoracic spine was performed. COMPARISON: CT CT SPINE LS WO CONTRAST from 10/05/2021 CR XR CHEST 2V PA LATERAL from 05/09/2023 FINDINGS: Bones: Mild compression of the superior endplates of T7 and T8, seen on prior chest x-ray of February 16. No abnormal marrow signal. Alignment is satisfactory. Cord: The thoracic cord is normal size and signal intensity. No intrinsic cord lesion is present. Discs: No disc herniation or bulge is present. Soft tissues: Normal. T1-2: No disc herniation or bulge is identified. T2-3: No disc herniation or bulge is identified. T4-5: No disc herniation or bulge is identified. T5-6: No disc herniation or bulge is identified. T6-7: Small endplate osteophytes and minimal disc bulging. Facet degenerative changes on the right. T7-8: No disc herniation or bulge is identified. T8-9: No disc herniation or bulge is identified. T9-10: No disc herniation or bulge is identified. Bilateral facet degenerative changes with mild enc roachment into the central canal. mild bilateral neural foraminal narrowing. T10-11:Minimal disc bulging. Facet degenerative changes cause mild bilateral neural foraminal narrow ing. T11-12: No disc herniation or bulge is identified. T12-L1: No disc herniations or bulges are present. IMPRESSION: Old compression mild fractures of T7 and T8. No new compression fractures. Neural foraminal narrowi ng at T9-10 T10-11 secondary to facet joint encroachment. DATA REPOSITORY:
--- NOTE | 2023-05-09 12:30 | DI.MRI_ITS ---
Exam(s) MR LUMBAR SPINE WO EXAM: MR LUMBAR SPINE WO CLINICAL HISTORY: Low back pain weakness history of falling. TECHNIQUE: Multiplanar multisequence MRI of the Lumbar spine was performed. COMPARISON: CT CT SPINE LS WO CONTRAST from 10/05/2021 MR MR LS SPINE W/WO CONTRAST from 10/05/2021 FINDINGS: Bones: The last intervertebral disc space is designated the L5/S1 level for the numbering purpose of this ex amination. Vertebral bodies: Stable minimal compression of the superior endplate of L1. State stable mild compr ession of the superior endplate of L5. No acute fractures. Schmorl's nodes noted at multiple levels . Alignment: Unremarkable. The marrow signal characteristics are unremarkable. Cord: The conus tip ends at the T12 level. It is of normal size and signal intensity. T12-L1: No focal disc herniation is present. No central spinal canal stenosis.No neural foraminal st enosis. L1-2: No focal disc herniation is present. No central spinal canal stenosis.No neural foraminal sten osis. L2-3: No focal disc herniation is present. No central spinal canal stenosis.No neural foraminal [place] nosis. L3-4: No focal disc herniation is present. No central spinal canal stenosis.No neural foraminal [place] nosis. L4-5: Based disc bulging. Degenerative changes combine with the disc bulging to creates severe bilat eral neural foraminal narrowing. No central spinal canal stenosis.No neural foraminal stenosis. L5-S1: Laminectomy. Posterior fusion hardware.Mild disc bulging. No central spinal canal stenosi s.Artifact from hardware somewhat limits evaluation of neural foramen. Narrowing suspected. The visualized SI joints and sacrum are well maintained. Soft tissues: The paraspinal soft tissues are unremarkable. IMPRESSION: No evidence of acute compression fracture. Degenerative changes and postsurgical changes at L4-5 and L5-S1. Bilateral neural foraminal narrowin g noted at L4-5. Left neural foraminal narrowing at L5-S1. DATA REPOSITORY:
--- NOTE | 2023-05-09 13:00 | DI.RAD_ITS ---
Exam(s) XR CHEST 2V PA LATERAL EXAM: XR CHEST 2V PA LATERAL CLINICAL HISTORY: Shortness of breath TECHNIQUE: 2D digital imaging was performed. COMPARISON: CR,XR XR CHEST 2V PA LATERAL from 02/17/2022 FINDINGS: HEART: Normal size. Aorta: Not dilated. PULMONARY VASCULATURE: Normal. LUNGS: Stable appearance of bilateral diffuse interstitial changes. PLEURAL SPACE: Bilateral apical scarring, right greater than left. No pleural effusion or pneumothor ax. BONE:Stable mild midthoracic compression fractures. IMPRESSION: Pulmonary fibrotic changes. No acute abnormality. DATA REPOSITORY: RADIATION DOSE DELIVERED:
--- NOTE | 2023-05-09 13:00 | RT.EKG_ITS ---
APPROVED REPORT Exam: Resting ECG Reason for Exam: Shortness of breath Patient Location: E HR:81 bpm ECG Measurements Heart Rate 81 AXIS SC 229 P 27 QRSd 70 QRS -22 QT 361 T 33 QTc 419 Conclusion Sinus rhythm...normal P axis, V-rate 60- 99 Prolonged SC interval...SC >210, V-rate 50- 90 Inferior infarct, old...Q >35mS, II III aVF Narrow complex normal sinus rhythm at a rate of 81 with first-degree AV block and left axis deviation . No signs of LVH based on voltage criteria. No ST segment abnormalities. Poor R wave progression. No prior for comparison. No acute injury pattern.
[2023-05-09] MEDS: LORazepam 1 MG TAB PO (13:16)
--- NOTE | 2023-05-09 13:27 | NUR.NOTE ---
Nursing Note: This RN assumed care of pt in WR room 11. Pt in MRI at time of assuming care.
[2023-05-09 14:43] VITALS: RESP 13; O2SAT 92
[2023-05-09 14:44] VITALS: BP 117/83; PULSE 82; PULSE 84; RESP 16; O2SAT 89
[2023-05-09 14:46] VITALS: BP 123/71; PULSE 77; PULSE 79; RESP 12; O2SAT 94
[2023-05-09 14:50] VITALS: PULSE 86; RESP 15; O2SAT 91
[2023-05-09 14:52] LABS: Abs Immature Grans 0.03 10^3/uL (0.0-0.06); Absolute Basophil Count 0.07 10^3/uL (0.0-0.2); Absolute Eosinophil Count 0.17 10^3/uL (0.0-0.7); Absolute Lymphocyte Count 2.07 10^3/uL (1.2-3.4); Absolute Monocyte Count 0.78 10^3/uL (0.1-0.8); Absolute Neutrophil Count 5.56 10^3/uL (1.2-6.7); Basophils % 0.8; HCT 37.8 % (40.0-50.0); HGB 12.7 g/dL (13.5-17.5); Immature Grans % 0.3; Lymphocytes % 23.8; MCH 30.1 pg (27.0-33.0); MCHC 33.6 % (32.0-36.0); MCV 90 fL (80-95); MPV 8.6 fL (8.0-11.0); Neutrophils % 64.1; Platelet Count 314 10^3/uL (130-400); RBC 4.22 10^6/uL (4.36-5.78); RDW 14.9 % (11.8-14.1); RDW-SD 48.8 fL; WBC 8.68 10^3/uL (4.4-10.8)
[2023-05-09 15:00] VITALS: PULSE 83; RESP 15; O2SAT 90
[2023-05-09 15:18] LABS: Troponin I < 50 ng/L (<or=60)
[2023-05-09 15:22] LABS: Anion Gap 7.5 mmol/L (3-11); BUN 6 mg/dL (7-18); CO2 31.5 mmol/L (21.0-32.0); CREATININE 0.6 mg/dL (0.70-1.30); Calcium 9.1 mg/dL (8.5-10.1); Chloride 97 mmol/L (98-107); D-Dimer 803 ng/mlFEU (<500); Estimated GFR 110.51 (mL/min/1.73m2); Glucose 120 mg/dL (74-106); Magnesium 1.9 mg/dL (1.8-2.4); NT-proBNP 26 pg/mL (<300); Potassium 3.4 mmol/L (3.5-5.1); Sodium 136 mmol/L (136-145)
[2023-05-09 16:12] LABS: Bilirubin Negative (Negative); Blood Negative (Negative); Clarity Clear (Clear); Glucose Negative (Negative); Ketones Negative (Negative); Leukocyte Esterase Negative (Negative); Nitrite Negative (Negative); Urobilinogen 0.2 mg/dL (Up to 0.2)
[2023-05-09] MEDS: Ketorolac 30 MG/ML VIAL IVP (16:19)
[2023-05-09] MEDS: Acetaminophen 500 MG TAB (16:38)
[2023-05-09] MEDS: Lidocaine 5% Patch 2 PATCH TP (16:49)
[2023-05-09] MEDS: Omnipaque 350 MG/ML 100 ML BTL IJ (17:10)
[2023-05-09] MEDS: Normal Saline - Diluent 50 ML VIAL IJ (17:10)
--- NOTE | 2023-05-09 17:25 | DI.VRAD_ITS ---
PROCEDURE INFORMATION: Exam: CTA Chest With Contrast Exam date and time: 05/09/2023 5:06 PM Age: 62 years old Clinical indication: Other: Ddimer TECHNIQUE: Imaging protocol: Computed tomographic angiography of the chest with contrast. Exam focused on the arteries. 3D rendering (Not supervised by radiologist): MIP and/or 3D reconstructed images were created by the technologist. Contrast material: 350; Contrast volume: 90 ml; Contrast route: INTRAVENOUS (IV); COMPARISON: CR XR CHEST 2V PA LATERAL 05/09/2023 2:14 PM FINDINGS: Pulmonary arteries: No evidence of pulmonary embolus to the segmental level. Aorta: No aneurysm of the aorta. No dissection of the aorta. Lungs: Ground-glass opacities in the lower lobes may represent minimal atelectasis or pneumonia. Pleural spaces: Unremarkable. No pneumothorax. No pleural effusion. Heart: Unremarkable. No cardiomegaly. No pericardial effusion. Lymph nodes: Pathologic node in the preaortic region 2.2 x 1.5 cm. Pathologic node in the AP window 17 x 13 mm. Bones/joints: Screws in the left humeral head. Unhealed posterior left lateral 8th and 9th rib fractures. compression fractures of unknown age in the thoracic spine Soft tissues: Unremarkable. IMPRESSION: 1. No evidence of pulmonary embolus to the segmental level. 2. No aneurysm of the aorta. 3. No dissection of the aorta. 4. Unhealed posterior left lateral 8th and 9th rib fractures. 5. Pathologic node in the preaortic region 2.2 x 1.5 cm. Pathologic node in the AP window 17 x 13 mm. 6. Ground-glass opacities in the lower lobes may represent minimal atelectasis or pneumonia. Dictated and Authenticated by: Andrew Alford MD. Ordering:JUNITO Gomez MD
--- NOTE | 2023-05-09 19:35 | NUR.NOTE ---
Referral e-mailed to [facility] ENT to f/u next week for course voice.Nursing Note:
== END 2023-05-09 17:42 | disposition home or self-care (01) ==
PROVIDERS: Emergency Medicine; Emergency Provider Nurse Practitioner Acute Care; PCP Family Medicine
DX: M54.50 Low back pain, unspecified (principal); G89.29 Other chronic pain; R22.43 Localized swelling, mass and lump, lower limb, bilateral; R06.02 Shortness of breath; I44.0 Atrioventricular block, first degree; R49.0 Dysphonia; J44.9 Chronic obstructive pulmonary disease, unspecified; F17.210 Nicotine dependence, cigarettes, uncomplicated
CPT/HCPCS: 71275; 80048; 93005; 93308; 96374; 99285; 71046; 72146; 72148; 81003; 83735; 83880; 84484; 85025; 85379; 93010; 99284; J1885; J3490

== ENCOUNTER → 2023-05-12 13:44 | Outpatient (BNVA) | payer OTHER, MEDICAID, SELFPAY | PROVIDERS: PCP Family Medicine; Referring Provider Family Medicine; Visit Provider Nurse Practitioner Gerontology | DX: N40.1 Benign prostatic hyperplasia with lower urinary tract symptoms (principal); R39.11 Hesitancy of micturition | CPT/HCPCS: 51798; 99214 ==

== ENCOUNTER 2023-08-26 19:33 | Emergency (ER) | payer OTHER, MEDICAID, SELFPAY ==
--- NOTE | 2023-08-26 19:57 | ED.GENADUL_ITS ---
HPI General Mode of arrival: ambulatory. ALEX: 3 Date/Time Provider Initiated Documentation: 08/26/23 19:56. Limitations to Documentation: no limitations. Information obtained by: patient, RN notes reviewed and old records reviewed. HPI Narrative: 63-year-old male presents to the ER with chief complaint of throat pain and history of thrush. He is a smoker with a history of COPD does use inhalers at home. He reports he just came off a 4-day stent of antibiotics and steroids which did little to no relief. He reports that his throat has been hurting for the last 6 months. He reports he has been diagnosed with thrush by ENT specialist back in May. He is speaking in full sentences, denies any cough shortness of breath or chest pain or any other associated symptoms. On exam he does have erythemic posterior pharynx, uvula is midline, no visualized exudate noted. He does have some tender anterior cervical lymphadenopathy with palpation. He is also complaining of some left tympanic membrane tinnitus ear pain which is also chronic. Related Data Home Medications Medication Instructions Recorded Confirmed gabapentin 300 mg capsule 300 mg PO QID 12/07/18 08/26/23 pramipexole 1 mg tablet 1 mg PO TID 12/07/18 08/26/23 levothyroxine 88 mcg capsule 88 mcg PO DAILY 04/18/20 08/26/23 albuterol sulfate 90 mcg/actuation 2 puff inhalation Q3-5H 04/27/21 08/26/23 aerosol inhaler gabapentin 600 mg tablet 600 mg PO QID 04/27/21 08/26/23 ibuprofen 600 mg tablet 600 mg PO QID PRN 04/27/21 08/26/23 perphenazine 4 mg tablet 4 mg PO BID 09/10/22 08/26/23 atorvastatin 40 mg tablet 40 mg PO DAILY 10/04/22 08/26/23 famotidine 40 mg tablet 40 mg PO QHS 10/04/22 08/26/23 methocarbamol 750 mg tablet 750 mg PO Q4H PRN 10/04/22 08/26/23 tadalafil 5 mg tablet (Cialis) 5 mg PO DAILY urinary flow #90 tabs 11/06/22 08/26/23 potassium chloride 10 mEq 10 meq PO DAILY 05/12/23 08/26/23 capsule,extended release acetaminophen 500 mg tablet 500 mg PO Q6H PRN 06/27/23 08/26/23 albuterol sulfate 5 mg/mL(0.5 %) 2.5 mg inhalation Q6H PRN 06/27/23 08/26/23 solution for nebulization fluticasone fur. 100 mcg-umeclid 1 inh inhalation DAILY 06/27/23 08/26/23 62.5 mcg-vilant 25 mcg inhalat.powder (Trelegy Ellipta) fluticasone propionate 50 1 spray intranasal DAILY 06/27/23 08/26/23 mcg/actuation nasal spray,suspension (Allergy Relief (fluticasone)) furosemide 40 mg PO DIRECTED 06/27/23 08/26/23 ipratropium 0.5 mg-albuterol 3 mg See Rx Instructions inhalation 06/27/23 08/26/23 (2.5 mg base)/3 mL nebulization DIRECTED PRN soln ipratropium bromide 21 mcg (0.03 2 spray intranasal TID 06/27/23 08/26/23 %) nasal spray naloxone 4 mg/actuation nasal 4 mg intranasal ONCE PRN 06/27/23 08/26/23 spray (Narcan) omeprazole 40 mg capsule,delayed 40 mg PO DAILY 06/27/23 08/26/23 release nystatin 100,000 unit/mL oral 1 ml PO DAILY thrush 7 days #60 mL 08/26/23 suspension Previous Rx's Medication Instructions Recorded tadalafil 5 mg tablet (Cialis) 5 mg PO DAILY urinary flow #90 tabs 11/06/22 nystatin 100,000 unit/mL oral 1 ml PO DAILY thrush 7 days #60 mL 08/26/23 suspension Allergies Allergy/AdvReac Type Severity Reaction Status Date / Time quetiapine Allergy Unknown Verified 08/26/23 20:02 codeine Allergy itching Verified 08/26/23 20:02 cyclobenzaprine Allergy Verified 08/26/23 20:02 [From Flexeril] lamotrigine AdvReac Intermediate sleep Verified 08/26/23 20:02 walking aspirin AdvReac stomach Verified 08/26/23 20:02 concerns risperidone [From Risperdal] AdvReac N&V Verified 08/26/23 20:02 rofecoxib [From Vioxx] AdvReac palpitation Verified 08/26/23 20:02 s Review of Systems All systems reviewed & are unremarkable except as noted in HPI and below ENT Ears, Nose, Mouth, and Throat: Reports as per HPI, Reports otalgia, Reports sore throat and Reports throat swelling Allergic/Immunologic Allergic/Immunologic: Reports throat swelling PFSH All Active Problems (Updated 08/26/23 @ 20:39 by Shala Cassidy NP) Chronic sore throat (Acute) Fibromyalgia (Acute) Depressive disorder (Chronic) Chronic pain (Chronic) COPD (chronic obstructive pulmonary disease) (Chronic) Bipolar disorder (Acute) 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 Anasarca (Acute) Acute asthma (Acute) Xerostomia (Acute) Oral leukoplakia (Acute) Tobacco abuse (Acute) Chronic laryngitis (Acute) Nail dystrophy (Acute) Pain, foot (Acute) Corns and callosities (Acute) Bipolar 1 disorder (Acute) Anemia (Chronic) Acquired talipes planus (Acute) Hallux varus (acquired) (Acute) Asthma (Chronic) IGT (impaired glucose tolerance) (Acute) Peripheral neuropathy (Acute) Benign prostatic hyperplasia with hesitancy (Acute) Cortical cataract of left eye (Acute) Hypogonadism in male (Acute) Spermatocele of epididymis, multiple (Acute) Medical History Tinea cruris Spermatocele Seizure disorder Restless legs Psychophysiologic insomnia Pain of left shoulder joint on movement Pain of left hip joint Pain in right knee Onycholysis Obstructive sleep apnea Migraine Spondylolisthesis, lumbar region Left atrial enlargement Injury of shoulder and upper arm Idiopathic peripheral neuropathy Herpesviral vesicular dermatitis Hx of fracture of vertebral column Fibromyositis Fatigue Disorder of upper respiratory system Degeneration of lumbar intervertebral disc Degeneration of cervical intervertebral disc Decreased testosterone level Closed fracture of proximal end of humerus Closed fracture of lumbar vertebra Claustrophobia Cervicogenic headache Bilateral knee pain 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 Acute hyponatremia Allergic rhinitis History of hypothyroidism History of back injury Sleep apnea Lumbar disc disease Cervical disc disease Depression Neuropathy Hypertension Seizure Hyperlipidemia GERD (gastroesophageal reflux disease) Surgical History H/O sinus surgery H/O nasal septoplasty Hx of cataract surgery Hx of shoulder surgery left History of back surgery History of orthopedic surgery finger mass Hx of tonsillectomy Hx of arthroscopy of knee H/O eye surgery foreign body removal H/O carpal tunnel repair H/O hernia repair Family History Mother Diabetes Heart disease Hypertension Father Hypertension Social History Smoking/Tobacco Use Status: Current every day Tobacco Type: cigarettes Tobacco: How many years used: 40 Smoking risk assessment performed?: Yes Alcohol Intake: never Drug use: Never Substance use type: does not use Housing: apartment Do you feel safe at home: Yes Do you feel safe in your relationship?: Yes Additional Social history: Tobacco use: 20-30 cigarettes a day. Exam HENMT Throat: uvula midline and posterior oropharynx abnormal erythema Resp Effort & Inspection: normal respiratory effort Auscultation: clear to auscultation bilaterally Medical Decision Making 63-year-old male presents to the ER with chief complaint of throat pain and history of thrush. He is a smoker with a history of COPD does use inhalers at home. He reports he just came off a 4-day stent of antibiotics and steroids which did little to no relief. He reports that his throat has been hurting for the last 6 months. He reports he has been diagnosed with thrush by ENT specialist back in May. He is speaking in full sentences, denies any cough shortness of breath or chest pain or any other associated symptoms. On exam he does have erythemic posterior pharynx, uvula is midline, no visualized exudate noted. He does have some tender anterior cervical lymphadenopathy with palpation. He is also complaining of some left tympanic membrane tinnitus ear pain which is also chronic. Rapid strep, rapid COVID flu ordered. 10 mg dexamethasone p.o., nystatin 500,000 units swish and swallow x 1. Rapid strep and COVID and flu negative. This text was generated using [employer] dictation system, please disregard any oddities of phrase or misspellings. Quality:SDOH Health Related Social Needs: No Data to Display Discharge Plan Disposition Patient Disposition: Home Condition: Stable Discharge Details Clinical Impression: Chronic sore throat Primary Care Provider: Dg Nicole ED Provider: Shala Cassidy Home Meds and New Rx's Prescriptions: New nystatin 100,000 unit/mL suspension 1 ml PO DAILY 7 Days Qty: 60 0RF Rx Instructions: swish and swallow No Action gabapentin 300 mg capsule 300 mg PO QID Patient Comments: 04/13/21 Pt reports dosing changed. pramipexole 1 mg tablet 1 mg PO TID perphenazine 4 mg tablet 4 mg PO BID tadalafil [Cialis] 5 mg tablet 5 mg PO DAILY Qty: 90 4RF levothyroxine 88 mcg capsule 88 mcg PO DAILY atorvastatin 40 mg tablet 40 mg PO DAILY famotidine 40 mg tablet 40 mg PO QHS methocarbamol 750 mg tablet 750 mg PO Q4H PRN potassium chloride 10 mEq capsule, extended release 10 meq PO DAILY albuterol sulfate 5 mg/mL solution for nebulization 2.5 mg inhalation Q6H PRN fluticasone propionate [Allergy Relief (fluticasone)] 50 mcg/actuation spray,suspension 1 spray intranasal DAILY Rx Instructions: administer into each nostril ipratropium bromide 21 mcg (0.03 %) spray,non-aerosol 2 spray intranasal TID Rx Instructions: administer into each nostril ipratropium-albuterol 0.5 mg-3 mg(2.5 mg base)/3 mL solution for nebulization See Rx Instructions inhalation DIRECTED PRN Rx Instructions: inhaled as directed PRN; naloxone [Narcan] 4 mg/actuation spray,non-aerosol 4 mg intranasal ONCE PRN Rx Instructions: spray 1 dose into ONE nostril; alternate nostrils w each dose until help arrives omeprazole 40 mg capsule,delayed release(DR/EC) 40 mg PO DAILY furosemide 40 mg PO DIRECTED Trelegy Ellipta 100-62.5-25 mcg blister with device 1 inh inhalation DAILY acetaminophen 500 mg tablet 500 mg PO Q6H PRN gabapentin 600 mg tablet 600 mg PO QID Patient Comments: TAKE 1 TABLET EVERY MORNING AND 1 TABLET EARLY AFTERNOON WITH 2 TABLETS AT BEDTIME ibuprofen 600 mg tablet 600 mg PO QID PRN Patient Comments: TAKE ONE TABLET BY MOUTH FOUR TIMES A DAY NEEDED FOR 30 DAYS WITH FOOD albuterol sulfate 90 mcg/actuation HFA aerosol inhaler 2 puff INHALATION Q3-5H Patient Comments: INHALE TWO PUFFS BY MOUTH EVERY 3 HOURS NEEDED FOR 90 DAYS Discharge Instructions Instructions: Oral Candidiasis (ED) Additional Instructions: No evidence of Covid or strep throat. Please use the Nystatin suspension as directed daily for the next 7-10 days. Gargle with warm salt water up to 3 times daily. Please take Tylenol or Ibuprofen with food every 4-6 hours as needed for pain and swelling. Follow up with ENT/ primary care provider in 3-5 days. Return to ED sooner if any worsening or concerns. Increase oral fluids. Referrals: Dg Nicole [Primary Care Provider] - 1 week Alistair Rodriguez MD [ [facility] STAFF PHYSICIAN] - 1 week
[2023-08-26 20:06] VITALS: BP 164/100; PULSE 103; RESP 16; TEMP 36.7; O2SAT 100
[2023-08-26] MEDS: Dexamethasone 10 MG/ML VIAL PO (20:17)
[2023-08-26] MEDS: Nystatin 500000 UNITS/5 ML SUSP 5ML CUP PO (20:18)
== END 2023-08-26 20:42 | disposition home or self-care (01) ==
PROVIDERS: Emergency Provider Registered Nurse Emergency; PCP Family Medicine
DX: J02.9 Acute pharyngitis, unspecified (principal); B37.9 Candidiasis, unspecified; I10 Essential (primary) hypertension; E78.5 Hyperlipidemia, unspecified; J44.9 Chronic obstructive pulmonary disease, unspecified; G40.909 Epilepsy, unspecified, not intractable, without status epilepticus; F17.210 Nicotine dependence, cigarettes, uncomplicated; Z11.52 Encounter for screening for COVID-19
CPT/HCPCS: 87426; 87880; 99283; 87081; J1100

== ENCOUNTER → 2023-09-03 14:33 | Outpatient (BNVA) | payer OTHER, MEDICAID, SELFPAY | PROVIDERS: PCP Family Medicine; Referring Provider Family Medicine; Visit Provider Physician Assistant Surgical | DX: J44.9 Chronic obstructive pulmonary disease, unspecified (principal); I27.21 Secondary pulmonary arterial hypertension; J84.9 Interstitial pulmonary disease, unspecified | CPT/HCPCS: 99215 ==

== ENCOUNTER 2023-09-05 03:07 | Outpatient (CLI) | payer OTHER, MEDICAID, SELFPAY ==
[2023-09-05] MEDS: Levalbuterol HFA 15 GM INH 4 PUFF IH (14:12)
[2023-09-05] MEDS: Inhaler, Assist Device 1 EACH MC (14:13)
--- NOTE | 2023-09-08 13:56 | W.PFT ---
Date of service: 09/05/23 Time of Service: 13:02 Pulmonary Function Test Result Indications: ILD/COPD Interpretation Spirometry: There is no airflow limitation. No bronchodilator response. FVC is low. Lung Volumes: Normal lung volumes Diffusion Capacity: Normal diffusion Airway Pressure: Normal airways resistance Impression Normal pulmonary function testing. FVC could be low due to pseudo-restriction from obesity. Clinical Correlation therefore is recommended.
== END 2023-09-05 03:08 | disposition home or self-care (01) ==
PROVIDERS: PCP Family Medicine; Visit Provider Physician Assistant Surgical
DX: J84.9 Interstitial pulmonary disease, unspecified (principal)
CPT/HCPCS: 94060; 94726; 94729

== ENCOUNTER → 2023-09-18 01:41 | Outpatient (CLI) | payer MEDICARE, MEDICAID, SELFPAY ==
--- NOTE | 2023-09-18 09:31 | DI.CT_ITS ---
Exam(s) CT CHEST HIGH RESOLUTION EXAM: CT CHEST HIGH RESOLUTION CLINICAL HISTORY: interstitial lung disease,j84.9. TECHNIQUE: Multi planar reconstructions were performed. CONTRAST MATERIAL: None COMPARISON: CT CT CHEST PE CTA from 05/09/2023 FINDINGS: CHEST: LUNGS: There is again noted evidence of bilateral interstitial pulmonary fibrosis, similar in appeara nce to 05/09/2023 CT scan and without obvious progression. The amount of cystic change in the upper lobes has minimally increased on the right side. There are no confluent infiltrates nor pleural effu sions. There is no honeycomb pattern in the lung bases. No new focal findings in the trachea and ma instem bronchi. MEDIASTINUM: There is no obvious hilar nor mediastinal adenopathy. Visualized thyroid unremarkable.No obvious axillary adenopathy CARDIAC: Heart size is normal. There is no pericardial effusion.Caliber of the thoracic aorta is wit hin normal limits. VISUALIZED UPPER ABDOMEN:No adrenal masses. No splenomegaly. OSSEOUS: Healed fracture of the lateral aspect of the right 8th rib is again noted. No new right rib findings. 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 No acute rib findings. No lytic nor martha stic osseous lesionsevident.. IMPRESSION: 1. Relatively stable appearance of the bilateral interstitial pulmonary fibrosis disease when compare d to the CT scan of 05/09/2023. There is mild progression in the amount of cystic disease in the rig ht upper lobe. 2. No new infiltrates nor pleural effusions nor intrathoracic adenopathy. 3. Unchanged nonacute rib findings as discussed above. RADIATION DOSE DELIVERED: 721.12mGy.cm Total DLP DATA REPOSITORY: All CT scans at this facility are submitted to the National Radiology Data Registry (NRDR) Dose Index Registry (DIR) with the [employer] (A[employer]). RADIATION OPTIMIZATION: All CT scans at this facility use at least one of these dose optimization te chniques: automated exposure control; mA and/or kV adjustment per patient size (includes targeted exa ms where dose is matched to clinical indication); or iterative reconstruction.
== END ==
PROVIDERS: PCP Family Medicine; Visit Provider Physician Assistant Surgical
DX: J84.9 Interstitial pulmonary disease, unspecified (principal)
CPT/HCPCS: 71250

== ENCOUNTER 2023-09-18 05:01 | Outpatient (CLI) | payer MEDICARE, MEDICAID, SELFPAY ==
--- NOTE | 2023-09-18 12:41 | W.6MWT ---
Date of service: 09/18/23 Time of Service: 08:32 6 Minute Walk Test Note: 6 Minute Walk Test Distance walked:600 feet Desaturations:No significant desaturations. SpO2 did drop to 82% while patient talking, after repositioning of probe SpO2 was 94% Heart rate changes: no significant changes Recommendation: No supplemental oxygen required with exertion Leigh Campos MD Pulmonary & Critical Care Medicine
== END 2023-09-18 05:02 | disposition home or self-care (01) ==
LOC: RT 05:02
PROVIDERS: PCP Family Medicine; Visit Provider Physician Assistant Surgical
DX: I27.21 Secondary pulmonary arterial hypertension (principal); J84.9 Interstitial pulmonary disease, unspecified
CPT/HCPCS: 94618

== ENCOUNTER → 2023-10-16 15:10 | Outpatient (BNVA) | payer MEDICARE, MEDICAID, SELFPAY | PROVIDERS: PCP Family Medicine; Referring Provider Family Medicine; Visit Provider Physician Assistant Surgical | DX: R05.3 Chronic cough (principal); J44.9 Chronic obstructive pulmonary disease, unspecified; I27.21 Secondary pulmonary arterial hypertension; J84.9 Interstitial pulmonary disease, unspecified; F17.210 Nicotine dependence, cigarettes, uncomplicated | CPT/HCPCS: 99214 ==

== ENCOUNTER 2023-10-16 17:48 | Outpatient (CLI) | payer MEDICARE, MEDICAID, SELFPAY ==
[2023-10-17 17:31] LABS: Rheumatoid Factor <8.6 IU/mL (<12.0)
[2023-10-20 09:38] LABS: Cyclic Citrullinated Peptide <2.5 U/mL (<5.0)
[2023-10-20 14:38] LABS: ANA Interpretation Negative (Negative)
== END 2023-10-16 17:49 | disposition home or self-care (01) ==
LOC: LBO 17:49
PROVIDERS: PCP Family Medicine; Visit Provider Physician Assistant Surgical
DX: J84.9 Interstitial pulmonary disease, unspecified (principal)
CPT/HCPCS: 36415; 86200; 86038; 86431

== ENCOUNTER 2023-10-27 07:57 | Day surgery (SDC) | payer MEDICARE, MEDICAID, SELFPAY ==
[2023-10-27 08:26] VITALS: BP 142/98; PULSE 90; RESP 22; TEMP 37.1; O2SAT 94
== END 2023-10-27 07:58 | disposition home or self-care (01) ==
LOC: SUR 07:57
PROVIDERS: PCP Family Medicine; Visit Provider Otolaryngology
DX: Z53.09 Procedure and treatment not carried out because of other contraindication (principal)

== ENCOUNTER 2023-11-05 14:58 | Emergency (ER) | payer MEDICARE, MEDICAID, SELFPAY ==
[2023-11-05] VITALS (13 sets, daily range): BP systolic 132–161; BP diastolic 92–112; PULSE 87–103; RESP 15–29; TEMP 36.7; O2SAT 91–99
--- NOTE | 2023-11-05 15:00 | RT.EKG_ITS ---
APPROVED REPORT Exam: Resting ECG Reason for Exam: sob Patient Location: E HR:88 bpm ECG Measurements Heart Rate 88 AXIS WV 228 P 50 QRSd 70 QRS -17 QT 343 T 38 QTc 415 Conclusion Sinus rhythm...normal P axis, V-rate 60- 99 Prolonged WV interval...WV >220, V-rate 50- 90 Normal Nesmith I have reviewed and interpreted ECG and agree with software generated interpretation. There are no significant changes compared to prior EKG performed on 05/09/2023 at 14:18.
--- NOTE | 2023-11-05 15:07 | ED.GENADUL_ITS ---
Discharge Plan Disposition Patient Disposition: Against Medical Advice Condition: Poor Discharge Details Clinical Impression: COPD exacerbation, ILD (interstitial lung disease) Primary Care Provider: Dg Nicole ED Provider: Josh Bradshaw [facility] and New Rx's Prescriptions: New levofloxacin 750 mg tablet 750 mg PO DAILY Qty: 9 0RF prednisone 10 mg tablet See Taper PO DIRECTED Qty: 42 0RF Taper: Prednisone 10mg taper 40 mg Daily for 4 Days and 0 Hour 30 mg Daily for 4 Days and 0 Hour 20 mg Daily for 4 Days and 0 Hour 10 mg Daily for 4 Days and 0 Hour 5 mg Daily for 4 Days and 0 Hour Continued pramipexole 1 mg tablet 1 mg PO TID levothyroxine 88 mcg capsule 88 mcg PO DAILY atorvastatin 40 mg tablet 40 mg PO DAILY famotidine 40 mg tablet 40 mg PO QHS methocarbamol 750 mg tablet 750 mg PO Q4H PRN albuterol sulfate 5 mg/mL solution for nebulization 2.5 mg inhalation Q6H PRN fluticasone propionate [Allergy Relief (fluticasone)] 50 mcg/actuation spray,suspension 1 spray intranasal DAILY Rx Instructions: administer into each nostril ipratropium bromide 21 mcg (0.03 %) spray,non-aerosol 2 spray intranasal TID Rx Instructions: administer into each nostril omeprazole 40 mg capsule,delayed release(DR/EC) 40 mg PO DAILY furosemide 40 mg PO DIRECTED Patient Comments: 40mg PO Daily in the am acetaminophen 500 mg tablet 500 mg PO Q6H PRN Anoro Ellipta 62.5-25 mcg/actuation blister with device 1 inh inhalation DAILY Qty: 60 6RF tamsulosin [Flomax] 0.4 mg capsule 0.4 mg PO DAILY Qty: 30 0RF Patient Comments: Pt states he is not taking ibuprofen 600 mg tablet 600 mg PO QID PRN Patient Comments: TAKE ONE TABLET BY MOUTH FOUR TIMES A DAY NEEDED FOR 30 DAYS WITH FOOD albuterol sulfate 90 mcg/actuation HFA aerosol inhaler 2 puff INHALATION Q3-5H Patient Comments: INHALE TWO PUFFS BY MOUTH EVERY 3 HOURS NEEDED FOR 90 DAYS Discontinued ipratropium-albuterol 0.5 mg-3 mg(2.5 mg base)/3 mL solution for nebulization See Rx Instructions inhalation DIRECTED PRN Rx Instructions: inhaled as directed PRN; Discharge Instructions Additional Instructions: You were seen for increased difficulty breathing and are suspected to have COPD exacerbation in addition to your chronic lung problems. We feel you should be admitted for management of this worsening but after discussion which has included discussion regarding worsening symptoms, respiratory arrest, , you have decided to leave AGAINST MEDICAL ADVICE. You are strongly encouraged to reconsider and come back at any time. You should most definitely return if your symptoms worsen. Please use your albuterol either inhaler or nebulizer every 4 hours. You have been started on prednisone and levofloxacin which she should take as directed. You should see your primary care this week before the weekend for recheck. Again return if you have worsening or not improving and change your mind regarding admission. HPI General Mode of arrival: ambulatory . Date/Time Provider Initiated Documentation: 11/05/23 15:07 . Limitations to Documentation: no limitations . Information obtained by: patient and family . HPI Narrative: Patient presents to ED with complaint of increased shortness of breath and low oxygen saturations. Patient is followed by pulmonary, Dr. Campos, and saw her on the . Per her records he is supposed to be on oxygen at night only. [place] reports that he has been using oxygen pretty much all the time at this point. He does have known ELIECER but will not use CPAP or BiPAP. He sleeps in a recliner and is not able to lie flat. He does keep his legs above his chest. Last night his concentrator apparently stopped working so he was without oxygen for some period of time overnight. He reports when he woke up in the morning his saturations were in the 70s. His placed him on the oxygen tank and they called the company that provides concentrator who came out and switched over his unit. He still feels that his breathing is worse than usual. He also feels that his cough is worse than usual but he is unable to bring anything up. He is complaining of central chest pressure but has had this before though today it has been pretty much persistent and constant. His is reporting that he has been hallucinating and becoming unresponsive. He has known ILD, COPD, continued smoking despite attempts at stopping in the past. He denies any fever. He reports significant leg swelling that occurred over the last 24 hours. Related Data Home Medications Medication Instructions Recorded Confirmed pramipexole 1 mg tablet 1 mg PO TID 12/07/18 11/05/23 levothyroxine 88 mcg capsule 88 mcg PO DAILY 04/18/20 11/05/23 albuterol sulfate 90 mcg/actuation 2 puff inhalation Q3-5H 04/27/21 11/05/23 aerosol inhaler ibuprofen 600 mg tablet 600 mg PO QID PRN 04/27/21 11/05/23 atorvastatin 40 mg tablet 40 mg PO DAILY 10/04/22 11/05/23 famotidine 40 mg tablet 40 mg PO QHS 10/04/22 11/05/23 methocarbamol 750 mg tablet 750 mg PO Q4H PRN 10/04/22 11/05/23 acetaminophen 500 mg tablet 500 mg PO Q6H PRN 06/27/23 11/05/23 albuterol sulfate 5 mg/mL(0.5 %) 2.5 mg inhalation Q6H PRN 06/27/23 11/05/23 solution for nebulization fluticasone propionate 50 1 spray intranasal DAILY 06/27/23 11/05/23 mcg/actuation nasal spray,suspension (Allergy Relief (fluticasone)) furosemide 40 mg PO DIRECTED 06/27/23 11/05/23 ipratropium bromide 21 mcg (0.03 2 spray intranasal TID 06/27/23 11/05/23 %) nasal spray omeprazole 40 mg capsule,delayed 40 mg PO DAILY 06/27/23 11/05/23 release umeclidinium 62.5 mcg-vilanterol 1 inh inhalation DAILY #60 ea 09/08/23 11/05/23 25 mcg/actuation powdr for inhalation (Anoro Ellipta) tamsulosin 0.4 mg capsule (Flomax) 0.4 mg PO DAILY #30 caps 09/23/23 11/05/23 levofloxacin 750 mg tablet 750 mg PO DAILY #9 tabs 11/05/23 prednisone 10 mg tablet See Taper PO DIRECTED #42 tabs 11/05/23 Previous Rx's Medication Instructions Recorded umeclidinium 62.5 mcg-vilanterol 1 inh inhalation DAILY #60 ea 09/08/23 25 mcg/actuation powdr for inhalation (Anoro Ellipta) tamsulosin 0.4 mg capsule (Flomax) 0.4 mg PO DAILY #30 caps 09/23/23 levofloxacin 750 mg tablet 750 mg PO DAILY #9 tabs 11/05/23 prednisone 10 mg tablet See Taper PO DIRECTED #42 tabs 11/05/23 Allergies Allergy/AdvReac Type Severity Reaction Status Date / Time quetiapine Allergy Unknown OTHER Verified 11/05/23 15:06 codeine Allergy itching Verified 11/05/23 15:06 cyclobenzaprine Allergy OTHER Verified 11/05/23 15:06 [From Flexeril] lamotrigine AdvReac Intermediate sleep Verified 11/05/23 15:06 walking aspirin AdvReac stomach Verified 11/05/23 15:06 concerns risperidone [From Risperdal] AdvReac N&V Verified 11/05/23 15:06 rofecoxib [From Vioxx] AdvReac palpitation Verified 11/05/23 15:06 s General Stated Complaint: RespSymp ALEX: 3 Review of Systems Narrative: Per HPI Exam Narrative Exam Narrative: Const: Overweight middle aged male in NAD but with increase WOB. HEENT: NC/AT. Normal facial exam. Eyes: Normal conjunctiva and sclera. Neck: Supple. Trachea midline. Lungs: Increased work of breathing with abdominal breathing and diffuse wheezing and rhonchi throughout. Cor: RRR without murmur/gallop. Good radial pulses. GI: Soft. NT/ND. Neuro: A+O x 3. Normal speech, mentation. Cranial nerves II - XII grossly intact. No gross motor or sensory deficit. Ext: 3+ bilateral lower extremity edema. Skin: Warm and dry without rash. Course Vital Signs Vital signs: Vital Signs Temperature 98.1 F 11/05/23 15:00 Pulse 103 H 11/05/23 15:00 Respiratory Rate 22 11/05/23 15:00 Blood Pressure 151/95 H 11/05/23 15:00 Pulse Oximetry 93 11/05/23 15:00 Temperature 98.1 F 11/05/23 15:00 Temperature Source Skin 11/05/23 15:00 Pulse 103 H 11/05/23 15:00 Respiratory Rate 22 11/05/23 15:00 Respiratory Effort Normal, Short of Breath 11/05/23 15:05 Blood Pressure 151/95 H 11/05/23 15:00 Blood Pressure Position Sitting 11/05/23 15:00 Pulse Oximetry 93 11/05/23 15:00 Oxygen Delivery Method Room Air 11/05/23 15:00 Oxygen Flow Rate 0 11/05/23 15:00 Pain Level 9 11/05/23 15:00 Medical Decision Making 63-year-old male with ILD and COPD who continues to smoke presenting with increased shortness of breath, cough, wheezing. Is followed in the pulmonary clinic here. Had been relatively stable though was recently treated for COPD exacerbation with prednisone and azithromycin towards the end of September. Has a cardiac echo from earlier in this month which is reassuring with evidence of pulmonary hypertension only. He has good EF at 60%. His EKG is sinus rhythm with normal ST segments and no evidence of acute ischemic change. He has diffuse wheezing and this may be related to COPD exacerbation with underlying ILD. Will place IV and obtain laboratory studies including troponin given his complaint of chest pressure. X-ray ordered. Nebulizer treatment and Solu- Medrol given. Patient's laboratory studies significant for a white count which is normal. He has a mild anemia. His venous blood gas shows a pH of 7.32 with pCO2 of 69, venous bicarb of 35 suggesting acute on chronic CO2 retention. His electrolytes kidney function are normal. Liver function is mildly elevated with no baseline for comparison. His initial troponin is negative. His BNP is normal. Suspect his leg edema is related to dependent edema and likely some right-sided heart dysfunction given the elevated LFTs. Chest x-ray is stable with no evidence of infiltrate per my read as well as radiology read. He has not really had much improvement in terms of breathing and is still wheezing with rhonchi present. He is likely COPD exacerbation with chronic ILD on top of this. He would benefit from admission but he is refusing despite bleeding from his . He is aware of the real possibility of worsening and potentially even respiratory arrest and . His spouse is also aware of this. He still is refusing to stay. He does have capacity to make that decision. He has agreed to return if worse. He will also follow-up with his primary care this week before the weekend. I will place him on Levaquin and prednisone and encourage every 4 hours albuterol neb which she has at home. He may return at any time to the ED. I have discussed with his spouse that if there is any significant decompensation or concern that she should call 911. Medical Records Medical records reviewed: Yes I reviewed the patient's medical records. Medical records narrative: See MDM; reviewed his last 3 pulmonary clinic visits. Outpatient echo results from earlier this month. Lab Data Lab results reviewed: Yes I reviewed the patient's lab results. Lab results narrative: See MDM ECG Data Attestation: I personally reviewed and interpreted this ECG (s) as follows: Prior ECG tracings: available for review Interpretation: See EKG?unchanged from previous. 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 Anasarca (Acute) Acute asthma (Acute) Xerostomia (Acute) Oral leukoplakia (Acute) Tobacco abuse (Acute) Chronic laryngitis (Acute) Nail dystrophy (Acute) Pain, foot (Acute) Corns and callosities (Acute) Bipolar 1 disorder (Acute) Anemia (Chronic) Acquired talipes planus (Acute) Hallux varus (acquired) (Acute) Asthma (Chronic) IGT (impaired glucose tolerance) (Acute) Peripheral neuropathy (Acute) Benign prostatic hyperplasia with hesitancy (Acute) Cortical cataract of left eye (Acute) Hypogonadism in male (Acute) Spermatocele of epididymis, multiple (Acute) Medical History Tinea cruris Spermatocele Seizure disorder Pt. states he had 1 seizure 13 years ago from a medication. But states he has not had one since. Restless legs Psychophysiologic insomnia Pain of left shoulder joint on movement Pain of left hip joint Pain in right knee Onycholysis Obstructive sleep apnea Migraine Spondylolisthesis, lumbar region Left atrial enlargement Injury of shoulder and upper arm Idiopathic peripheral neuropathy Herpesviral vesicular dermatitis Hx of fracture of vertebral column Fibromyositis Fatigue Disorder of upper respiratory system Degeneration of lumbar intervertebral disc Degeneration of cervical intervertebral disc Decreased testosterone level Closed fracture of proximal end of humerus Closed fracture of lumbar vertebra Claustrophobia Cervicogenic headache Bilateral knee pain 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 Acute hyponatremia Allergic rhinitis History of hypothyroidism History of back injury Sleep apnea Lumbar disc disease Cervical disc disease Depression Neuropathy Hypertension Seizure Hyperlipidemia GERD (gastroesophageal reflux disease) Surgical History H/O sinus surgery H/O nasal septoplasty Hx of cataract surgery Hx of shoulder surgery left History of back surgery History of orthopedic surgery finger mass Hx of tonsillectomy Hx of arthroscopy of knee H/O eye surgery foreign body removal H/O carpal tunnel repair H/O hernia repair Family History Mother Diabetes Heart disease Hypertension Father Hypertension Social History Smoking/Tobacco Use Status: Current every day Tobacco Type: cigarettes Tobacco: How many years used: 40 Smoking risk assessment performed?: Yes Alcohol Intake: never Drug use: Never Substance use type: does not use Housing: apartment Do you feel safe at home: Yes Do you feel safe in your relationship?: Yes Additional Social history: unable to assess privately
[2023-11-05 15:42] LABS: Abs Immature Grans 0.02 10^3/uL (0.0-0.06); Absolute Basophil Count 0.06 10^3/uL (0.0-0.2); Absolute Eosinophil Count 0.31 10^3/uL (0.0-0.7); Absolute Lymphocyte Count 1.64 10^3/uL (1.2-3.4); Absolute Monocyte Count 0.84 10^3/uL (0.1-0.8); Absolute Neutrophil Count 5.04 10^3/uL (1.2-6.7); Basophils % 0.8; Eosinophils % 3.9; HCT 38.7 % (40.0-50.0); HGB 12.2 g/dL (13.5-17.5); Immature Grans % 0.3; Lymphocytes % 20.7; MCH 29.3 pg (27.0-33.0); MCHC 31.5 % (32.0-36.0); MCV 93 fL (80-95); MPV 8.8 fL (8.0-11.0); Monocytes % 10.6; Neutrophils % 63.7; Platelet Count 335 10^3/uL (130-400); RBC 4.17 10^6/uL (4.36-5.78); RDW 15.7 % (11.8-14.1); RDW-SD 53.4 fL; WBC 7.91 10^3/uL (4.4-10.8)
[2023-11-05] MEDS: Albuterol 2.5 MG/3 ML INH SOLN VIAL UPD (15:42)
[2023-11-05] MEDS: Albuterol/Ipratropium 3 ML UPD VIAL UPD (15:42)
[2023-11-05] MEDS: methylPREDNISolone SUCC 125 MG VIAL IVP (15:42)
[2023-11-05 16:12] LABS: ALT 92 U/L (16-63); AST 48 U/L (15-37); Alkaline Phosphatase 119 U/L (46-116); Anion Gap 4.5 mmol/L (3-11); BUN 7 mg/dL (7-18); Bilirubin, Total 0.2 mg/dL (0.2-1.0); CO2 33.5 mmol/L (21.0-32.0); CREATININE 0.6 mg/dL (0.70-1.30); Calcium 8.3 mg/dL (8.5-10.1); Chloride 98 mmol/L (98-107); Estimated GFR 109.83 (mL/min/1.73m2); Glucose 121 mg/dL (74-106); Magnesium 1.8 mg/dL (1.8-2.4); NT-proBNP 66 pg/mL (<300); Potassium 3.8 mmol/L (3.5-5.1); Sodium 136 mmol/L (136-145); Total Protein 6.5 g/dL (6.4-8.2); Troponin I < 50 ng/L (< or =60)
--- NOTE | 2023-11-05 16:29 | DI.RAD_ITS ---
Exam(s) XR CHEST 2V PA LATERAL EXAM: XR CHEST 2V PA LATERAL CLINICAL HISTORY: SOB. TECHNIQUE: 2D digital imaging was performed. COMPARISON: CR XR CHEST 2V PA LATERAL from 05/09/2023 FINDINGS: 2 views: Heart size is normal. The mediastinum is not widened. Again noted is evidence of bilateral interstitial pulmonary fibrosis, unchanged. No new confluent in filtrates evident. No pleural effusions. IMPRESSION: Bilateral chronic interstitial disease. No new focal findings in the lung be nor significant [place] nge compared to 05/09/2023. DATA REPOSITORY: RADIATION DOSE DELIVERED:
[2023-11-05 16:34] LABS: BE (Venous) 9 mmol/L (-2-3); HCO3 (Venous) 35 mmol/L (23-28); O2 Sat (Venous) 74 %; TCO2 (Venous) 33 mmol/L (24-29); pH (Venous) 7.32 (7.31-7.41); pO2 (Venous) 37 mmHg
[2023-11-05 16:37] LABS: pCO2 (Venous) 69 mmHg (41-51)
[2023-11-05] MEDS: levoFLOXacin 500 MG, levoFLOXacin 250 MG 750 MG PO (17:14)
[2023-11-05] MEDS: Albuterol 2.5 MG/3 ML INH SOLN VIAL 5 MG UPD (17:14)
== END 2023-11-05 17:37 | disposition left against medical advice (07) ==
PROVIDERS: Emergency Provider Emergency Medicine; PCP Family Medicine
DX: J44.1 Chronic obstructive pulmonary disease with (acute) exacerbation (principal); J84.10 Pulmonary fibrosis, unspecified; I10 Essential (primary) hypertension; E78.5 Hyperlipidemia, unspecified; F17.210 Nicotine dependence, cigarettes, uncomplicated; Z99.81 Dependence on supplemental oxygen; Z53.29 Procedure and treatment not carried out because of patient's decision for other reasons
CPT/HCPCS: 80053; 82805; 93005; 99284; 71046; 83735; 83880; 84484; 85025; 93010; J2930; J7613; J7620

== ENCOUNTER 2023-11-22 14:35 | Emergency (ER) | payer MEDICARE, MEDICAID, SELFPAY ==
[2023-11-22] VITALS (9 sets, daily range): BP systolic 125–154; BP diastolic 86–92; PULSE 77–97; RESP 16–24; TEMP 36.9; O2SAT 95
--- NOTE | 2023-11-22 14:56 | ED.GENADUL_ITS ---
Discharge Plan Disposition Patient Disposition: Home Condition: Improving Discharge Details Chief Complaint: Nk/Back Pain Clinical Impression: Back pain Primary Care Provider: Dg Nicole ED Provider: Osei Bennett Home Meds and New Rx's Prescriptions: No Action pramipexole 1 mg tablet 1 mg PO TID fluconazole 100 mg tablet 100 mg PO DAILY Qty: 14 0RF Rx Instructions: begin this when done with the levaquin(levofloxacin) levothyroxine 88 mcg capsule 88 mcg PO DAILY atorvastatin 40 mg tablet 40 mg PO DAILY famotidine 40 mg tablet 40 mg PO QHS methocarbamol 750 mg tablet 750 mg PO Q4H PRN tamsulosin [Flomax] 0.4 mg capsule 0.4 mg PO DAILY Qty: 90 1RF Patient Comments: Pt states he is not taking albuterol sulfate 5 mg/mL solution for nebulization 2.5 mg inhalation Q6H PRN fluticasone propionate [Allergy Relief (fluticasone)] 50 mcg/actuation spray,suspension 1 spray intranasal DAILY Rx Instructions: administer into each nostril ipratropium bromide 21 mcg (0.03 %) spray,non-aerosol 2 spray intranasal TID Rx Instructions: administer into each nostril omeprazole 40 mg capsule,delayed release(DR/EC) 40 mg PO DAILY furosemide 40 mg PO DIRECTED Patient Comments: 40mg PO Daily in the am acetaminophen 500 mg tablet 500 mg PO Q6H PRN Anoro Ellipta 62.5-25 mcg/actuation blister with device 1 inh inhalation DAILY Qty: 60 6RF ibuprofen 600 mg tablet 600 mg PO QID PRN Patient Comments: TAKE ONE TABLET BY MOUTH FOUR TIMES A DAY NEEDED FOR 30 DAYS WITH FOOD albuterol sulfate 90 mcg/actuation HFA aerosol inhaler 2 puff INHALATION Q3-5H Patient Comments: INHALE TWO PUFFS BY MOUTH EVERY 3 HOURS NEEDED FOR 90 DAYS levofloxacin 750 mg tablet 750 mg PO DAILY Qty: 9 0RF prednisone 10 mg tablet See Taper PO DIRECTED Qty: 42 0RF Taper: Prednisone 10mg taper 40 mg Daily for 4 Days and 0 Hour 30 mg Daily for 4 Days and 0 Hour 20 mg Daily for 4 Days and 0 Hour 10 mg Daily for 4 Days and 0 Hour 5 mg Daily for 4 Days and 0 Hour Patient Comments: today last day Discharge Instructions Instructions: Back Pain (ED) HPI General Date/Time Provider Initiated Documentation: 11/22/23 14:47 . HPI Narrative: 63-year-old male presents with atraumatic back and left shoulder discomfort as well as some muscle spasm in his left lower back, associated with mild numbness and tingling in his left shoulder and upper arm region no chest pain or shortness of breath. Related Data Home Medications Medication Instructions Recorded Confirmed pramipexole 1 mg tablet 1 mg PO TID 12/07/18 11/22/23 levothyroxine 88 mcg capsule 88 mcg PO DAILY 04/18/20 11/22/23 albuterol sulfate 90 mcg/actuation 2 puff inhalation Q3-5H 04/27/21 11/22/23 aerosol inhaler ibuprofen 600 mg tablet 600 mg PO QID PRN 04/27/21 11/22/23 atorvastatin 40 mg tablet 40 mg PO DAILY 10/04/22 11/22/23 famotidine 40 mg tablet 40 mg PO QHS 10/04/22 11/22/23 methocarbamol 750 mg tablet 750 mg PO Q4H PRN 10/04/22 11/22/23 acetaminophen 500 mg tablet 500 mg PO Q6H PRN 06/27/23 11/22/23 albuterol sulfate 5 mg/mL(0.5 %) 2.5 mg inhalation Q6H PRN 06/27/23 11/22/23 solution for nebulization fluticasone propionate 50 1 spray intranasal DAILY 06/27/23 11/22/23 mcg/actuation nasal spray,suspension (Allergy Relief (fluticasone)) furosemide 40 mg PO DIRECTED 06/27/23 11/22/23 ipratropium bromide 21 mcg (0.03 2 spray intranasal TID 06/27/23 11/22/23 %) nasal spray omeprazole 40 mg capsule,delayed 40 mg PO DAILY 06/27/23 11/22/23 release umeclidinium 62.5 mcg-vilanterol 1 inh inhalation DAILY #60 ea 09/08/23 11/22/23 25 mcg/actuation powdr for inhalation (Anoro Ellipta) levofloxacin 750 mg tablet 750 mg PO DAILY #9 tabs 11/05/23 11/22/23 prednisone 10 mg tablet See Taper PO DIRECTED #42 tabs 11/05/23 11/22/23 tamsulosin 0.4 mg capsule (Flomax) 0.4 mg PO DAILY #90 caps 11/17/23 11/22/23 fluconazole 100 mg tablet 100 mg PO DAILY #14 tabs 11/19/23 11/22/23 Previous Rx's Medication Instructions Recorded umeclidinium 62.5 mcg-vilanterol 1 inh inhalation DAILY #60 ea 09/08/23 25 mcg/actuation powdr for inhalation (Anoro Ellipta) levofloxacin 750 mg tablet 750 mg PO DAILY #9 tabs 11/05/23 prednisone 10 mg tablet See Taper PO DIRECTED #42 tabs 11/05/23 tamsulosin 0.4 mg capsule (Flomax) 0.4 mg PO DAILY #90 caps 11/17/23 fluconazole 100 mg tablet 100 mg PO DAILY #14 tabs 11/19/23 Allergies Allergy/AdvReac Type Severity Reaction Status Date / Time quetiapine Allergy Unknown OTHER Verified 11/22/23 14:41 codeine Allergy itching Verified 11/22/23 14:41 cyclobenzaprine Allergy OTHER Verified 11/22/23 14:41 [From Flexeril] lamotrigine AdvReac Intermediate sleep Verified 11/22/23 14:41 walking aspirin AdvReac stomach Verified 11/22/23 14:41 concerns risperidone [From Risperdal] AdvReac N&V Verified 11/22/23 14:41 rofecoxib [From Vioxx] AdvReac palpitation Verified 11/22/23 14:41 s General Stated Complaint: Nk/Back Pain ALEX: 3 Review of Systems Narrative: Review of Systems Constitutional: negative Eyes: negative ENT: negative Cardiovascular: negative Respiratory: negative Gastrointestinal: negative : negative Musculoskeletal: Back pain Skin: negative Neurologic: Paresthesia Psych: negative Exam Narrative Exam Narrative: Physical Examination General: alert, awake, cooperative, resting comfortably, no acute distress HEENT: normocephalic, atraumatic; PERRL, EOM intact, conjunctiva normal; no nasal discharge; moist mucous membranes, oral and pharyngeal mucosa normal, tolerating secretions Neck: supple, trachea midline; full ROM Chest: normal to inspection Respiratory: normal respiratory effort, speaking in full sentences Back: No midline spinal tenderness step-off crepitus or deformity; lumbar left paraspinal muscle spasm Skin: no lesions, rashes or trauma appreciated Neuro: AAOx3, normal speech, moving all extremities; 5 out of 5 strength upper lower extremities bilaterally cranial nerves II through XII intact, no ataxia Extremities: No signs of trauma Psych: Appropriate mood and affect Course Vital Signs Vital signs: Vital Signs Temperature 36.9 C 11/22/23 14:37 Pulse 96 H 11/22/23 14:37 Respiratory Rate 22 11/22/23 14:37 Blood Pressure 142/92 H 11/22/23 14:37 Pulse Oximetry 95 11/22/23 14:37 Temperature 36.9 C 11/22/23 14:37 Temperature Source Skin 11/22/23 14:37 Pulse 96 H 11/22/23 14:37 Respiratory Rate 22 11/22/23 14:37 Respiratory Effort Normal 11/22/23 14:40 Blood Pressure 142/92 H 11/22/23 14:37 Blood Pressure Position Sitting 11/22/23 14:37 Pulse Oximetry 95 11/22/23 14:37 Oxygen Delivery Method Room Air 11/22/23 14:37 Oxygen Flow Rate 0 11/22/23 14:37 Pain Level 9 11/22/23 14:37 Medical Decision Making 63-year-old male presents with atraumatic back discomfort radiating to his left shoulder as well as left lower back discomfort, subjective paresthesias to left upper extremity, no chest pain or shortness of breath afebrile nontoxic neurologically intact cranial nerves II through XII intact 5-5 strength upper and lower extremities bilaterally no ataxia, sensation intact, no midline spinal tenderness step-off crepitus or deformity. Likely cervical radiculopathy with component of lumbar muscle spasm. Low suspicion for CVA spinal epidural abscess mass/malignancy or infectious process. Trial of analgesia anti-inflammatory likely home with close follow-up. Patient follows at pain clinic 15: 45 patient was comfortably no acute distress. 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 Anasarca (Acute) Acute asthma (Acute) Xerostomia (Acute) Oral leukoplakia (Acute) Tobacco abuse (Acute) Chronic laryngitis (Acute) Nail dystrophy (Acute) Pain, foot (Acute) Corns and callosities (Acute) Bipolar 1 disorder (Acute) Anemia (Chronic) Acquired talipes planus (Acute) Hallux varus (acquired) (Acute) Asthma (Chronic) IGT (impaired glucose tolerance) (Acute) Peripheral neuropathy (Acute) Benign prostatic hyperplasia with hesitancy (Acute) Cortical cataract of left eye (Acute) Hypogonadism in male (Acute) Spermatocele of epididymis, multiple (Acute) Medical History Tinkayden juarezuris Spermatocele Seizure disorder Pt. states he had 1 seizure 13 years ago from a medication. But states he has not had one since. Restless legs Psychophysiologic insomnia Pain of left shoulder joint on movement Pain of left hip joint Pain in right knee Onycholysis Obstructive sleep apnea Migraine Spondylolisthesis, lumbar region Left atrial enlargement Injury of shoulder and upper arm Idiopathic peripheral neuropathy Herpesviral vesicular dermatitis Hx of fracture of vertebral column Fibromyositis Fatigue Disorder of upper respiratory system Degeneration of lumbar intervertebral disc Degeneration of cervical intervertebral disc Decreased testosterone level Closed fracture of proximal end of humerus Closed fracture of lumbar vertebra Claustrophobia Cervicogenic headache Bilateral knee pain 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 Acute hyponatremia Allergic rhinitis History of hypothyroidism History of back injury Sleep apnea Lumbar disc disease Cervical disc disease Depression Neuropathy Hypertension Seizure Hyperlipidemia GERD (gastroesophageal reflux disease) Surgical History H/O sinus surgery H/O nasal septoplasty Hx of cataract surgery Hx of shoulder surgery left History of back surgery History of orthopedic surgery finger mass Hx of tonsillectomy Hx of arthroscopy of knee H/O eye surgery foreign body removal H/O carpal tunnel repair H/O hernia repair Family History Mother Diabetes Heart disease Hypertension Father Hypertension Social History Smoking/Tobacco Use Status: Current every day Tobacco Type: cigarettes Tobacco: How many years used: 40 Smoking risk assessment performed?: Yes Alcohol Intake: never Drug use: Never Substance use type: does not use Housing: apartment Do you feel safe at home: Yes Do you feel safe in your relationship?: Yes Additional Social history: unable to assess privately
[2023-11-22] MEDS: Dexamethasone 10 MG/ML VIAL PO (15:10)
[2023-11-22] MEDS: Lidocaine 5% Patch 1 PATCH TP (15:11)
[2023-11-22] MEDS: Ketorolac 15 MG/ML VIAL IM (15:11)
== END 2023-11-22 16:07 | disposition home or self-care (01) ==
PROVIDERS: Emergency Provider Emergency Medicine; PCP Family Medicine
DX: R20.0 Anesthesia of skin (principal); M54.50 Low back pain, unspecified; I10 Essential (primary) hypertension; E78.5 Hyperlipidemia, unspecified; J44.9 Chronic obstructive pulmonary disease, unspecified; F17.210 Nicotine dependence, cigarettes, uncomplicated; Z99.81 Dependence on supplemental oxygen
CPT/HCPCS: 96372; 99283; J1100; J1885

== ENCOUNTER 2023-12-01 20:01 | Emergency (ER) | payer MEDICARE, MEDICAID, SELFPAY ==
[2023-12-01 20:08] VITALS: BP 142/90; PULSE 98; RESP 16; TEMP 36.9; O2SAT 94
--- NOTE | 2023-12-01 20:28 | ED.GENADUL_ITS ---
Discharge Plan Disposition Patient Disposition: Home Condition: Stable Discharge Details Clinical Impression: Neck arthralgia Primary Care Provider: Dg Nicole ED Provider: Martir Angel [place] Meds and New Rx's Prescriptions: New lidocaine 5 % adhesive patch,medicated 1 patch topical DAILY Qty: 30 0RF Rx Instructions: leave on most painful area for up to 12 hrs Continued pramipexole 1 mg tablet 1 mg PO TID fluconazole 100 mg tablet 100 mg PO DAILY Qty: 14 0RF Rx Instructions: begin this when done with the levaquin(levofloxacin) levothyroxine 88 mcg capsule 88 mcg PO DAILY atorvastatin 40 mg tablet 40 mg PO DAILY famotidine 40 mg tablet 40 mg PO QHS methocarbamol 750 mg tablet 750 mg PO Q4H PRN tamsulosin [Flomax] 0.4 mg capsule 0.4 mg PO DAILY Qty: 90 1RF Patient Comments: Pt states he is not taking albuterol sulfate 5 mg/mL solution for nebulization 2.5 mg inhalation Q6H PRN fluticasone propionate [Allergy Relief (fluticasone)] 50 mcg/actuation spray,suspension 1 spray intranasal DAILY Rx Instructions: administer into each nostril ipratropium bromide 21 mcg (0.03 %) spray,non-aerosol 2 spray intranasal TID Rx Instructions: administer into each nostril omeprazole 40 mg capsule,delayed release(DR/EC) 40 mg PO DAILY furosemide 40 mg PO DIRECTED Patient Comments: 40mg PO Daily in the am acetaminophen 500 mg tablet 500 mg PO Q6H PRN Anoro Ellipta 62.5-25 mcg/actuation blister with device 1 inh inhalation DAILY Qty: 60 6RF ibuprofen 600 mg tablet 600 mg PO QID PRN Patient Comments: TAKE ONE TABLET BY MOUTH FOUR TIMES A DAY NEEDED FOR 30 DAYS WITH FOOD albuterol sulfate 90 mcg/actuation HFA aerosol inhaler 2 puff INHALATION Q3-5H Patient Comments: INHALE TWO PUFFS BY MOUTH EVERY 3 HOURS NEEDED FOR 90 DAYS lidocaine [Lidoderm] 5 % adhesive patch,medicated 1 patch topical DAILY Qty: 15 0RF Rx Instructions: leave on most painful area for up to 12 hrs Discharge Instructions Additional Instructions: Follow-up with your primary care provider within 1 week. Your cat scan showed degenerative disc disease If you feel more ill or have new symptoms such as high fevers return to the emergency department for reevaluation HPI General Mode of arrival: ambulatory . Date/Time Provider Initiated Documentation: 12/01/23 20:03 . Limitations to Documentation: no limitations . Information obtained by: patient . History of Present Illness 63 year old M presents to the emergency department with the chief complaint of Left-sided neck pain, described as moderate, Quality is described as aching, Patient reports no radiation. Patient started experiencing this week(s) (2) and it has been constant. No relieving factors improve symptom(s), No exacerbating factors reported . Patient notes no other symptoms.. Patient did receive the following treatments prior to arrival, none Related Data Home Medications Medication Instructions Recorded Confirmed pramipexole 1 mg tablet 1 mg PO TID 12/07/18 12/01/23 levothyroxine 88 mcg capsule 88 mcg PO DAILY 04/18/20 12/01/23 albuterol sulfate 90 mcg/actuation 2 puff inhalation Q3-5H 04/27/21 12/01/23 aerosol inhaler ibuprofen 600 mg tablet 600 mg PO QID PRN 04/27/21 12/01/23 atorvastatin 40 mg tablet 40 mg PO DAILY 10/04/22 12/01/23 famotidine 40 mg tablet 40 mg PO QHS 10/04/22 12/01/23 methocarbamol 750 mg tablet 750 mg PO Q4H PRN 10/04/22 12/01/23 acetaminophen 500 mg tablet 500 mg PO Q6H PRN 06/27/23 12/01/23 albuterol sulfate 5 mg/mL(0.5 %) 2.5 mg inhalation Q6H PRN 06/27/23 12/01/23 solution for nebulization fluticasone propionate 50 1 spray intranasal DAILY 06/27/23 12/01/23 mcg/actuation nasal spray,suspension (Allergy Relief (fluticasone)) furosemide 40 mg PO DIRECTED 06/27/23 12/01/23 ipratropium bromide 21 mcg (0.03 2 spray intranasal TID 06/27/23 12/01/23 %) nasal spray omeprazole 40 mg capsule,delayed 40 mg PO DAILY 06/27/23 12/01/23 release umeclidinium 62.5 mcg-vilanterol 1 inh inhalation DAILY #60 ea 09/08/23 12/01/23 25 mcg/actuation powdr for inhalation (Anoro Ellipta) tamsulosin 0.4 mg capsule (Flomax) 0.4 mg PO DAILY #90 caps 11/17/23 12/01/23 fluconazole 100 mg tablet 100 mg PO DAILY #14 tabs 11/19/23 12/01/23 lidocaine 5 % topical patch 1 patch topical DAILY #15 ea 11/22/23 12/01/23 (Lidoderm) lidocaine 5 % topical patch 1 patch topical DAILY #30 ea 12/01/23 Previous Rx's Medication Instructions Recorded umeclidinium 62.5 mcg-vilanterol 1 inh inhalation DAILY #60 ea 09/08/23 25 mcg/actuation powdr for inhalation (Anoro Ellipta) tamsulosin 0.4 mg capsule (Flomax) 0.4 mg PO DAILY #90 caps 11/17/23 fluconazole 100 mg tablet 100 mg PO DAILY #14 tabs 11/19/23 lidocaine 5 % topical patch 1 patch topical DAILY #15 ea 11/22/23 (Lidoderm) lidocaine 5 % topical patch 1 patch topical DAILY #30 ea 12/01/23 Allergies Allergy/AdvReac Type Severity Reaction Status Date / Time quetiapine Allergy Unknown OTHER Verified 11/22/23 14:41 codeine Allergy itching Verified 11/22/23 14:41 cyclobenzaprine Allergy OTHER Verified 11/22/23 14:41 [From Flexeril] lamotrigine AdvReac Intermediate sleep Verified 11/22/23 14:41 walking aspirin AdvReac stomach Verified 11/22/23 14:41 concerns risperidone [From Risperdal] AdvReac N&V Verified 11/22/23 14:41 rofecoxib [From Vioxx] AdvReac palpitation Verified 11/22/23 14:41 s General Stated Complaint: Orthopedic ALEX: 4 Review of Systems All systems reviewed & are unremarkable except as noted in HPI and below Constitutional Constitutional: Denies chills, Denies fever(s) and Denies weakness Cardiovascular Cardiovascular: Denies chest pain and Denies dyspnea Respiratory Respiratory: Denies cough and Denies dyspnea Gastrointestinal Gastrointestinal: Denies abdominal pain, Denies nausea and Denies vomiting Musculoskeletal Musculoskeletal: Denies joint swelling Neurologic Neurologic: Denies weakness Exam Const General: no acute distress Orientation: alert HENMT Head: normal to inspection Ears: external ears normal General nose exam: external nose normal Mouth: moist mucous membranes Eyes General: appearance normal, both eyes and all related structures Neck Neck: normal visual inspection, full ROM, no meningeal signs, tender and no JVD Resp Effort & Inspection: normal respiratory effort and able to speak in complete sentences Cardio Rate: regular rate Skin General skin exam: no rashes or lesions noted Neuro General: patient alert and patient oriented x3 Extrem General: normal to inspection Psych Mental Status: mental status grossly normal Course Vital Signs Vital signs: Vital Signs Temperature 36.9 C 12/01/23 20:08 Pulse 98 H 12/01/23 20:08 Respiratory Rate 16 12/01/23 20:08 Blood Pressure 142/90 H 12/01/23 20:08 Pulse Oximetry 94 12/01/23 20:08 Temperature 36.9 C 12/01/23 20:08 Temperature Source Tympanic 12/01/23 20:08 Pulse 98 H 12/01/23 20:08 Respiratory Rate 16 12/01/23 20:08 Respiratory Effort Normal 12/01/23 20:14 Blood Pressure 142/90 H 12/01/23 20:08 Blood Pressure Position Sitting 12/01/23 20:08 Pulse Oximetry 94 12/01/23 20:08 Oxygen Delivery Method Room Air 12/01/23 20:08 Oxygen Flow Rate 0 12/01/23 20:08 Pain Level 9 12/01/23 20:08 Comment Burning, cramping, sharp, numb, itching 12/01/23 20:08 Medical Decision Making 3-year-old male with a history of neuropathy of his legs, COPD, bipolar, who comes in with 2 to 3 weeks of left-sided posterior neck pain. He denies any falls, no trauma. He was seen a few weeks ago and treated with muscle relaxers and says is not really helping. He denies any headaches, fevers, chills, restricted neck movements, no chest pain or difficulty breathing, no abdominal pain or vomiting. He is alert and oriented x 4 on arrival in no distress. He has tenderness in the left posterior lateral mid to upper neck. Cranial nerves II through XII are intact, no focal deficits. Suspect musculoskeletal neck pain but given persistent symptoms will obtain CT chest to evaluate for possible pathological fractures as a cause for his continued pain. He has no meningismus or infectious symptoms to suggest [employer] infection. Denies any IV drug use so doubt spinal epidural abscess. Patient feels significantly better, still has full range of motion with no meningismus. CT shows degenerative changes, advised of these findings to the patient he will follow-up with his primary care provider, he has no neurological deficits on exam, full range of motion, intact sensation in the extremities. He is stable for discharge, return precautions given Differential Diagnosis Differential Diagnosis: Muscle spasm, cervical strain, pathological fracture Medical Records Medical records reviewed: Yes I reviewed the patient's medical records. 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 Anasarca (Acute) Acute asthma (Acute) Xerostomia (Acute) Oral leukoplakia (Acute) Tobacco abuse (Acute) Chronic laryngitis (Acute) Nail dystrophy (Acute) Pain, foot (Acute) Corns and callosities (Acute) Bipolar 1 disorder (Acute) Anemia (Chronic) Acquired talipes planus (Acute) Hallux varus (acquired) (Acute) Asthma (Chronic) IGT (impaired glucose tolerance) (Acute) Peripheral neuropathy (Acute) Benign prostatic hyperplasia with hesitancy (Acute) Cortical cataract of left eye (Acute) Hypogonadism in male (Acute) Spermatocele of epididymis, multiple (Acute) Medical History Tinea cruris Spermatocele Seizure disorder Pt. states he had 1 seizure 13 years ago from a medication. But states he has not had one since. Restless legs Psychophysiologic insomnia Pain of left shoulder joint on movement Pain of left hip joint Pain in right knee Onycholysis Obstructive sleep apnea Migraine Spondylolisthesis, lumbar region Left atrial enlargement Injury of shoulder and upper arm Idiopathic peripheral neuropathy Herpesviral vesicular dermatitis Hx of fracture of vertebral column Fibromyositis Fatigue Disorder of upper respiratory system Degeneration of lumbar intervertebral disc Degeneration of cervical intervertebral disc Decreased testosterone level Closed fracture of proximal end of humerus Closed fracture of lumbar vertebra Claustrophobia Cervicogenic headache Bilateral knee pain 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 Acute hyponatremia Allergic rhinitis History of hypothyroidism History of back injury Sleep apnea Lumbar disc disease Cervical disc disease Depression Neuropathy Hypertension Seizure Hyperlipidemia GERD (gastroesophageal reflux disease) Surgical History H/O sinus surgery H/O nasal septoplasty Hx of cataract surgery Hx of shoulder surgery left History of back surgery History of orthopedic surgery finger mass Hx of tonsillectomy Hx of arthroscopy of knee H/O eye surgery foreign body removal H/O carpal tunnel repair H/O hernia repair Family History Mother Diabetes Heart disease Hypertension Father Hypertension Social History Smoking/Tobacco Use Status: Current every day Tobacco Type: cigarettes Tobacco: How many years used: 40 Smoking risk assessment performed?: Yes Alcohol Intake: never Drug use: Never Substance use type: does not use Housing: apartment Do you feel safe at home: Yes Do you feel safe in your relationship?: Yes Additional Social history: unable to assess privately
[2023-12-01] MEDS: HYDROmorphone 2 MG/ML SYR 1 MG IM (20:34)
--- NOTE | 2023-12-01 20:44 | DI.CT_ITS ---
Exam(s) CT CERVICAL SPINE WO EXAM: CT CERVICAL SPINE WO CLINICAL HISTORY: left sided pain. TECHNIQUE: Imaging Protocol: Axial computed tomography images with coronal and sagittal reformatted images were created and reviewed CONTRAST MATERIAL: Noncontrast COMPARISON: No exams were available for comparison FINDINGS: Exam mildly limited by motion. Bones: No fracture or dislocations are seen. Advanced degenerative disc changes at C5-6 and C6-7. F acet degenerative changes present greatest at C3-4 and C4-5. Some reversal of the normal cervical lo rdosis at C4-5, degenerative. Neural foraminal narrowing present at C3-4 and C6-7. Soft Tissues: The soft tissues of the neck are unremarkable. No large disk herniations are identified . Emphysematous changes present at the lung apices. No pneumothorax is seen. IMPRESSION: Degenerative disc changes and facet degenerative changes causing neural foraminal narrowing at C3-4 a nd C6-7. RADIATION DOSE DELIVERED: 597.19mGy.cm Total DLP DATA REPOSITORY: All CT scans at this facility are submitted to the National Radiology Data Registry (NRDR) Dose Index Registry (DIR) with the [employer] ([employer]). RADIATION OPTIMIZATION: All CT scans at this facility use at least one of these dose optimization te chniques: automated exposure control; mA and/or kV adjustment per patient size (includes targeted exa ms where dose is matched to clinical indication); or iterative reconstruction.
--- NOTE | 2023-12-01 21:43 | DI.VRAD_ITS ---
PROCEDURE INFORMATION: Exam: CT Cervical Spine Without Contrast Exam date and time: 12/01/2023 8:37 PM Age: 63 years old Clinical indication: Neck pain; Patient HX: Left sided pain TECHNIQUE: Imaging protocol: Computed tomography of the cervical spine without contrast. Radiation optimization: All CT scans at this facility use at least one of these dose optimization techniques: automated exposure control; mA and/or kV adjustment per patient size (includes targeted exams where dose is matched to clinical indication); or iterative reconstruction. COMPARISON: CT SPINE LS WO CONTRAST 10/05/2021 8:05 AM FINDINGS: Bones/joints: No acute fracture. Anterolisthesis of C3 on C4 and C4 on C5. Multilevel spondylosis and facet arthropathy is worst at C6-C7. No severe canal stenosis. Lungs: Emphysematous changes. Probable tracheal diverticulum Soft tissues: No acute findings. IMPRESSION: Degenerative changes without acute findings. Dictated and Authenticated by: Jamie Chakraborty MD. Ordering:RAY Mcmahan MD
[2023-12-01] MEDS: Lidocaine 5% Patch 1 PATCH TP (22:00)
== END 2023-12-01 22:00 | disposition home or self-care (01) ==
PROVIDERS: Emergency Provider Emergency Medicine; PCP Family Medicine
DX: M54.2 Cervicalgia (principal); I10 Essential (primary) hypertension; E78.5 Hyperlipidemia, unspecified; J44.9 Chronic obstructive pulmonary disease, unspecified
CPT/HCPCS: 96372; 99284; 72125; J1170

== ENCOUNTER 2023-12-05 16:10 | Emergency (ER) | payer MEDICARE, MEDICAID, SELFPAY ==
--- NOTE | 2023-12-05 16:00 | RT.EKG_ITS ---
APPROVED REPORT Exam: Resting ECG Reason for Exam: weight gain, lung issues Patient Location: E HR:98 bpm ECG Measurements Heart Rate 98 AXIS IN 228 P 56 QRSd 81 QRS 4 QT 328 T 63 QTc 418 Conclusion Sinus rhythm 98 long IN 228 poor V2 no stemi
[2023-12-05 16:14] VITALS: BP 153/92; PULSE 111; RESP 20; TEMP 36.1; O2SAT 95
--- NOTE | 2023-12-05 16:40 | W.ED.GENAD ---
Discharge Plan Disposition Patient Disposition: Home Condition: Improving Discharge Details Clinical Impression: Anasarca, Hypokalemia, Hypomagnesemia Primary Care Provider: Dg Nicole ED Provider: Rozina Frazier Home Meds and New Rx's Prescriptions: New furosemide 40 mg tablet 40 mg PO BID Qty: 14 0RF potassium chloride 20 mEq packet 20 meq PO DAILY Qty: 30 0RF magnesium L-lactate 84 mg tablet extended release 84 mg PO DAILY Qty: 10 0RF Continued pramipexole 1 mg tablet 1 mg PO TID fluconazole 100 mg tablet 100 mg PO DAILY Qty: 14 0RF Rx Instructions: begin this when done with the levaquin(levofloxacin) levothyroxine 88 mcg capsule 88 mcg PO DAILY atorvastatin 40 mg tablet 40 mg PO DAILY famotidine 40 mg tablet 40 mg PO QHS methocarbamol 750 mg tablet 750 mg PO Q4H PRN tamsulosin [Flomax] 0.4 mg capsule 0.4 mg PO DAILY Qty: 90 1RF Patient Comments: Pt states he is not taking albuterol sulfate 5 mg/mL solution for nebulization 2.5 mg inhalation Q6H PRN fluticasone propionate [Allergy Relief (fluticasone)] 50 mcg/actuation spray,suspension 1 spray intranasal DAILY Rx Instructions: administer into each nostril ipratropium bromide 21 mcg (0.03 %) spray,non-aerosol 2 spray intranasal TID Rx Instructions: administer into each nostril omeprazole 40 mg capsule,delayed release(DR/EC) 40 mg PO DAILY acetaminophen 500 mg tablet 500 mg PO Q6H PRN Anoro Ellipta 62.5-25 mcg/actuation blister with device 1 inh inhalation DAILY Qty: 60 6RF ibuprofen 600 mg tablet 600 mg PO QID PRN Patient Comments: TAKE ONE TABLET BY MOUTH FOUR TIMES A DAY NEEDED FOR 30 DAYS WITH FOOD albuterol sulfate 90 mcg/actuation HFA aerosol inhaler 2 puff INHALATION Q3-5H Patient Comments: INHALE TWO PUFFS BY MOUTH EVERY 3 HOURS NEEDED FOR 90 DAYS lidocaine [Lidoderm] 5 % adhesive patch,medicated 1 patch topical DAILY Qty: 15 0RF Rx Instructions: leave on most painful area for up to 12 hrs lidocaine 5 % adhesive patch,medicated 1 patch topical DAILY Qty: 30 0RF Rx Instructions: leave on most painful area for up to 12 hrs Discontinued furosemide 40 mg PO DIRECTED Patient Comments: 40mg PO Daily in the am Discharge Instructions Instructions: Edema (ED) Additional Instructions: Please follow-up with your primary care provider on Friday as scheduled. I would like you to increase your dose of furosemide from 40 mg to once daily to 40 mg 2 times daily. Please continue this until you are directed to stop by your primary care provider. Your potassium and magnesium were also low. Please take the supplements as prescribed. Be sure to follow a low-sodium diet to help decrease fluid retention. Return to emergency care if you develop new chest pain, shortness of breath, episodes of passing out, or if you are very worried and need to be rechecked again immediately Referrals: Dg Nicole [Primary Care Provider] - [facility] General Date/Time Provider Initiated Documentation: 12/05/23 16:20. [facility] Narrative: Jose is a 63-year-old male with history of pulmonary hypertension, interstitial lung disease, tobacco use, bipolar type I, BPH, and CHF who presents to the emergency department today for evaluation of bilateral lower extremity edema that has extended up to his lower abdomen. He reports he has had increasing swelling to his legs over the last week, with weight gain of 15 pounds; symptoms became acutely worse since last night. His also reports that he seems to be huffing and puffing while at rest for the last couple of days, although he denies shortness of breath. He does endorse feeling of sweating above the chest. Denies fevers, congestion, sore throat, cough, chest pain, nausea/vomiting, change in bowel or bladder function, open sores. He does report that he has had bilateral leg cramping requiring use of muscle relaxers. Tobacco smoker. Denies recent change to diuretic, says he has been taking furosemide 40 mg daily for months. Related Data Home Medications Medication Instructions Recorded Confirmed pramipexole 1 mg tablet 1 mg PO TID 12/07/18 12/01/23 levothyroxine 88 mcg capsule 88 mcg PO DAILY 04/18/20 12/01/23 albuterol sulfate 90 mcg/actuation 2 puff inhalation Q3-5H 04/27/21 12/01/23 aerosol inhaler ibuprofen 600 mg tablet 600 mg PO QID PRN 04/27/21 12/01/23 atorvastatin 40 mg tablet 40 mg PO DAILY 10/04/22 12/01/23 famotidine 40 mg tablet 40 mg PO QHS 10/04/22 12/01/23 methocarbamol 750 mg tablet 750 mg PO Q4H PRN 10/04/22 12/01/23 acetaminophen 500 mg tablet 500 mg PO Q6H PRN 06/27/23 12/01/23 albuterol sulfate 5 mg/mL(0.5 %) 2.5 mg inhalation Q6H PRN 06/27/23 12/01/23 solution for nebulization fluticasone propionate 50 1 spray intranasal DAILY 06/27/23 12/01/23 mcg/actuation nasal spray,suspension (Allergy Relief (fluticasone)) ipratropium bromide 21 mcg (0.03 2 spray intranasal TID 06/27/23 12/01/23 %) nasal spray omeprazole 40 mg capsule,delayed 40 mg PO DAILY 06/27/23 12/01/23 release umeclidinium 62.5 mcg-vilanterol 1 inh inhalation DAILY #60 ea 09/08/23 12/01/23 25 mcg/actuation powdr for inhalation (Anoro Ellipta) tamsulosin 0.4 mg capsule (Flomax) 0.4 mg PO DAILY #90 caps 11/17/23 12/01/23 fluconazole 100 mg tablet 100 mg PO DAILY #14 tabs 11/19/23 12/01/23 lidocaine 5 % topical patch 1 patch topical DAILY #15 ea 11/22/23 12/01/23 (Lidoderm) lidocaine 5 % topical patch 1 patch topical DAILY #30 ea 12/01/23 furosemide 40 mg tablet 40 mg PO BID #14 tabs 12/05/23 magnesium L-lactate 84 mg 84 mg PO DAILY #10 tabs 12/05/23 tablet,extended release potassium chloride 20 mEq oral 20 meq PO DAILY #30 ea 12/05/23 packet Previous Rx's Medication Instructions Recorded umeclidinium 62.5 mcg-vilanterol 1 inh inhalation DAILY #60 ea 09/08/23 25 mcg/actuation powdr for inhalation (Anoro Ellipta) tamsulosin 0.4 mg capsule (Flomax) 0.4 mg PO DAILY #90 caps 11/17/23 fluconazole 100 mg tablet 100 mg PO DAILY #14 tabs 11/19/23 lidocaine 5 % topical patch 1 patch topical DAILY #15 ea 11/22/23 (Lidoderm) lidocaine 5 % topical patch 1 patch topical DAILY #30 ea 12/01/23 furosemide 40 mg tablet 40 mg PO BID #14 tabs 12/05/23 magnesium L-lactate 84 mg 84 mg PO DAILY #10 tabs 12/05/23 tablet,extended release potassium chloride 20 mEq oral 20 meq PO DAILY #30 ea 12/05/23 packet Allergies Allergy/AdvReac Type Severity Reaction Status Date / Time quetiapine Allergy Unknown OTHER Verified 11/22/23 14:41 codeine Allergy itching Verified 11/22/23 14:41 cyclobenzaprine Allergy OTHER Verified 11/22/23 14:41 [From Flexeril] lamotrigine AdvReac Intermediate sleep Verified 11/22/23 14:41 walking aspirin AdvReac stomach Verified 11/22/23 14:41 concerns risperidone [From Risperdal] AdvReac N&V Verified 11/22/23 14:41 rofecoxib [From Vioxx] AdvReac palpitation Verified 11/22/23 14:41 s General Stated Complaint: GenMedical ALEX: 3 Review of Systems Narrative: see HPI Exam Const General: cooperative, comfortable and no acute distress Nutritional Appearance: overweight Resp Effort & Inspection: uses accessory muscles and other (3-4 word dyspnea) Auscultation: wheezes Cardio Rate: regular rate Rhythm: regular rhythm GI Inspection: edema (lower abd) and distended Palpation: soft and nontender Skin General skin exam: no rashes or lesions noted Extrem General: normal exam except as noted and pedal edema bilaterally (sever edema extending from feet to lower abdomen) Course Vital Signs Vital signs: Vital Signs Temperature 36.1 C L 12/05/23 16:14 Pulse 111 H 12/05/23 16:14 Respiratory Rate 12/05/23 16:14 Blood Pressure 153/92 H 12/05/23 16:14 Pulse Oximetry 95 12/05/23 16:14 Temperature 36.1 C L 12/05/23 16:14 Pulse 111 H 12/05/23 16:14 Respiratory Rate 20 12/05/23 16:14 Respiratory Effort Normal 12/05/23 16:18 Blood Pressure 153/92 H 12/05/23 16:14 Pulse Oximetry 95 12/05/23 16:14 Medical Decision Making Jose is a 63-year-old male with history of pulmonary hypertension, interstitial lung disease, tobacco use, bipolar type I, BPH, and CHF who presents to the emergency department today for evaluation of bilateral lower extremity edema that has extended up to his lower abdomen. He reports he has had increasing swelling to his legs over the last week, with weight gain of 15 pounds; symptoms became acutely worse since last night. His also reports that he seems to be huffing and puffing while at rest for the last couple of days, although he denies shortness of breath. He does endorse feeling of sweating above the chest. Denies fevers, congestion, sore throat, cough, chest pain, nausea/vomiting, change in bowel or bladder function, open sores. He does report that he has had bilateral leg cramping requiring use of muscle relaxers. Tobacco smoker. Denies recent change to diuretic, says he has been taking furosemide 40 mg daily for months. Physical exam remarkable for patient who is alert and comfortable at rest, slightly increased work of breathing noted with 3-4 word dyspnea. Scattered wheezes in all lung be. Normal heart sounds. Abdomen is softly distended, nontender to palpation, some edema noted to lower abdomen and increasing down bilateral thighs/calves/feet. No redness/warmth/tenderness. DDx includes but is not limited to CHF, venous insufficiency, cirrhosis, kidney dysfunction. No red flags concerning for cellulitis/ DVT based on history and presentation. I independently interpreted the following tests: CBC and BNP reassuring. CMP notable for hypokalemia (3.4) and hypomagnesemia (1.6). EKG reassuring, normal sinus rhythm rate 98. ME prolonged, 228. No acute changes consistent with acute ischemia. Chest x-ray reassuring, no obvious infiltrates or cardiomegaly Reviewed previous records, including summary of care from PCP, last office visit was noted to be in 2021. He also had an echo performed at [facility] on 06/27/2023, EF preserved at 60% with normal wall motion; RV is mildly dilated with preserved RV function, evidence of mild pulmonary hypertension with PA pressures elevated estimated 46 mmHg. History and presentation today consistent with right-sided heart failure secondary to pulmonary HTN, no pulmonary edema noted. While in the emergency department Jose received p.o. potassium and magnesium for repletion, as well as 80 mg IV Lasix for diuresis. Discussed case with Dr Pretty, hospitalist. Pt may be admitted if he does not have adequate response to lasix or tachypnea/hypoxia with ambulation. Will continue to monitor pt's I+Os and reassess; Jose is agreeable with plan of care. 1900: Jose has urinated a large amount since diuretic given. At rest he has improved work of breathing. He was able to ambulate throughout the department without shortness of breath. He reports that he is feeling like the swelling is starting to go down already. Abdomen is soft, with decreased edema in the lower abdomen. Patient does appear stable to go home. Reviewed discharge instructions, including use of diuretic and magnesium/potassium supplements. He does have a PCP follow-up scheduled on Friday. Reviewed red flags indicate need for return to emergency care. He is agreeable with plan of care. Imaging Data Radiologic Study: Radiologist's impression: Exam(s) XR CHEST 2V PA LATERAL EXAM: XR CHEST 2V PA LATERAL CLINICAL HISTORY: fatigue TECHNIQUE: 2D digital imaging was performed of the chest. Two images were obtained. PA and lateral views were obtained. COMPARISON: CR XR CHEST 2V PA LATERAL from 05/09/2023 CR XR CHEST 2V PA LATERAL from 11/05/2023 FINDINGS: MEDIASTINUM: Normal. HEART: Normal. PULMONARY VASCULATURE: Normal. LUNGS: There continue to be prominent interstitial markings in the lungs bilaterally which appears stable. These are likely chronic reflecting chronic interstitial fibrosis. No new infiltrates are seen to suggest superimposed infection. PLEURAL SPACE: No pleural effusion or pneumothorax. BONE:Within normal limits for the patient's age. OTHER FINDINGS:Normal. IMPRESSION: No acute pulmonary findings. 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 Anasarca (Acute) Acute asthma (Acute) Xerostomia (Acute) Oral leukoplakia (Acute) Tobacco abuse (Acute) Chronic laryngitis (Acute) Nail dystrophy (Acute) Pain, foot (Acute) Corns and callosities (Acute) Bipolar 1 disorder (Acute) Anemia (Chronic) Acquired talipes planus (Acute) Hallux varus (acquired) (Acute) Asthma (Chronic) IGT (impaired glucose tolerance) (Acute) Peripheral neuropathy (Acute) Benign prostatic hyperplasia with hesitancy (Acute) Cortical cataract of left eye (Acute) Hypogonadism in male (Acute) Spermatocele of epididymis, multiple (Acute) Medical History Tinkayden juarezuris Spermatocele Seizure disorder Pt. states he had 1 seizure 13 years ago from a medication. But states he has not had one since. Restless legs Psychophysiologic insomnia Pain of left shoulder joint on movement Pain of left hip joint Pain in right knee Onycholysis Obstructive sleep apnea Migraine Spondylolisthesis, lumbar region Left atrial enlargement Injury of shoulder and upper arm Idiopathic peripheral neuropathy Herpesviral vesicular dermatitis Hx of fracture of vertebral column Fibromyositis Fatigue Disorder of upper respiratory system Degeneration of lumbar intervertebral disc Degeneration of cervical intervertebral disc Decreased testosterone level Closed fracture of proximal end of humerus Closed fracture of lumbar vertebra Claustrophobia Cervicogenic headache Bilateral knee pain 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 Acute hyponatremia Allergic rhinitis History of hypothyroidism History of back injury Sleep apnea Lumbar disc disease Cervical disc disease Depression Neuropathy Hypertension Seizure Hyperlipidemia GERD (gastroesophageal reflux disease) Surgical History H/O sinus surgery H/O nasal septoplasty Hx of cataract surgery Hx of shoulder surgery left History of back surgery History of orthopedic surgery finger mass Hx of tonsillectomy Hx of arthroscopy of knee H/O eye surgery foreign body removal H/O carpal tunnel repair H/O hernia repair Family History Mother Diabetes Heart disease Hypertension Father Hypertension Social History Smoking/Tobacco Use Status: Current every day Tobacco Type: cigarettes Tobacco: How many years used: 40 Smoking risk assessment performed?: Yes Alcohol Intake: never Drug use: Never Substance use type: does not use Housing: apartment Do you feel safe at home: Yes Do you feel safe in your relationship?: Yes Additional Social history: unable to assess privately
[2023-12-05 16:51] LABS: Abs Immature Grans 0.04 10^3/uL (0.0-0.06); Absolute Basophil Count 0.07 10^3/uL (0.0-0.2); Absolute Eosinophil Count 0.43 10^3/uL (0.0-0.7); Absolute Lymphocyte Count 2.32 10^3/uL (1.2-3.4); Absolute Neutrophil Count 6.67 10^3/uL (1.2-6.7); Basophils % 0.7; Eosinophils % 4.1; HCT 37.7 % (40.0-50.0); HGB 12.4 g/dL (13.5-17.5); Immature Grans % 0.4; MCH 29.3 pg (27.0-33.0); MCHC 32.9 % (32.0-36.0); MCV 89 fL (80-95); Monocytes % 9.5; Neutrophils % 63.3; Platelet Count 294 10^3/uL (130-400); RBC 4.23 10^6/uL (4.36-5.78); RDW 16.6 % (11.8-14.1); RDW-SD 53.4 fL; WBC 10.53 10^3/uL (4.4-10.8)
[2023-12-05 17:13] LABS: ALT 47 U/L (16-63); AST 27 U/L (15-37); Albumin 3.3 g/dL (3.4-5.0); Alkaline Phosphatase 98 U/L (46-116); Anion Gap 6.8 mmol/L (3-11); BUN 14 mg/dL (7-18); Bilirubin, Total 0.2 mg/dL (0.2-1.0); CO2 33.2 mmol/L (21.0-32.0); CREATININE 0.7 mg/dL (0.70-1.30); Calcium 8.4 mg/dL (8.5-10.1); Chloride 97 mmol/L (98-107); Estimated GFR 104.83 (mL/min/1.73m2); Glucose 175 mg/dL (74-106); NT-proBNP 20 pg/mL (<300); Potassium 3.4 mmol/L (3.5-5.1); Sodium 137 mmol/L (136-145); Total Protein 6.7 g/dL (6.4-8.2)
[2023-12-05 17:17] LABS: Magnesium 1.6 mg/dL (1.8-2.4); TSH (W/Ref FT4) 2.59 uIU/mL (0.36-3.74)
--- NOTE | 2023-12-05 17:23 | DI.RAD_ITS ---
Exam(s) XR CHEST 2V PA LATERAL EXAM: XR CHEST 2V PA LATERAL CLINICAL HISTORY: fatigue TECHNIQUE: 2D digital imaging was performed of the chest. Two images were obtained. PA and lateral views were obtained. COMPARISON: CR XR CHEST 2V PA LATERAL from 05/09/2023 CR XR CHEST 2V PA LATERAL from 11/05/2023 FINDINGS: MEDIASTINUM: Normal. HEART: Normal. PULMONARY VASCULATURE: Normal. LUNGS: There continue to be prominent interstitial markings in the lungs bilaterally which appears st able. These are likely chronic reflecting chronic interstitial fibrosis. No new infiltrates are see n to suggest superimposed infection. PLEURAL SPACE: No pleural effusion or pneumothorax. BONE:Within normal limits for the patient's age. OTHER FINDINGS:Normal. IMPRESSION: No acute pulmonary findings. DATA REPOSITORY: RADIATION DOSE DELIVERED:
[2023-12-05] MEDS: Magnesium Oxide 400 MG TAB PO (17:57)
[2023-12-05] MEDS: Furosemide 100 MG/10 ML VIAL 80 MG IVP (17:57)
[2023-12-05] MEDS: Potassium Chloride Liquid 20 MEQ PKT (17:59)
[2023-12-05 18:41] VITALS: RESP 24
--- NOTE | 2023-12-08 07:21 | NUR.NOTE ---
Accessed chart to reconcile EKG orders with [facility] EKG's. Duplicate order cancelled. Nursing Note:
== END 2023-12-05 19:22 | disposition home or self-care (01) ==
PROVIDERS: Emergency Provider Nurse Practitioner Family; PCP Family Medicine
DX: E87.6 Hypokalemia (principal); E83.42 Hypomagnesemia; I27.20 Pulmonary hypertension, unspecified; R60.1 Generalized edema; I10 Essential (primary) hypertension; F17.200 Nicotine dependence, unspecified, uncomplicated; Z86.79 Personal history of other diseases of the circulatory system
CPT/HCPCS: 36415; 80053; 93005; 96374; 99284; 71046; 83735; 83880; 84443; 85025; 93010; 99283; J1940

== ENCOUNTER → 2023-12-10 11:21 | Outpatient (BNVA) | payer MEDICARE, MEDICAID, SELFPAY | PROVIDERS: PCP Family Medicine; Referring Provider Family Medicine; Visit Provider Nurse Practitioner Gerontology | DX: N40.1 Benign prostatic hyperplasia with lower urinary tract symptoms (principal); R39.11 Hesitancy of micturition | CPT/HCPCS: 99442 ==

== ENCOUNTER 2023-12-22 14:28 | Emergency (ER) | payer OTHER, MEDICAID, SELFPAY ==
[2023-12-22] VITALS (11 sets, daily range): BP systolic 109–140; BP diastolic 71–92; PULSE 90–106; RESP 16–21; TEMP 37.3; O2SAT 87–94
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
--- NOTE | 2023-12-22 16:30 | RT.EKG_ITS ---
APPROVED REPORT Exam: Resting ECG Reason for Exam: chest pain Patient Location: E HR:92 bpm ECG Measurements Heart Rate 92 AXIS RI 211 P 29 QRSd 75 QRS -15 QT 335 T 39 QTc 415 Conclusion Sinus rhythm 92 no stemi
[2023-12-22] MEDS: Ibuprofen 600 MG TAB PO (16:42)
[2023-12-22] MEDS: ACETAMINOPHEN 1,000 MG/100 ML BTL 400 MG IVPB (17:23)
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
[2023-12-22 17:41] LABS: Abs Immature Grans 0.04 10^3/uL (0.0-0.06); Absolute Basophil Count 0.08 10^3/uL (0.0-0.2); Absolute Eosinophil Count 0.26 10^3/uL (0.0-0.7); Absolute Lymphocyte Count 2.29 10^3/uL (1.2-3.4); Absolute Monocyte Count 1.14 10^3/uL (0.1-0.8); Absolute Neutrophil Count 6.83 10^3/uL (1.2-6.7); Basophils % 0.8 %; Eosinophils % 2.4 %; HCT 39.1 % (40.0-50.0); HGB 12.4 g/dL (13.5-17.5); Immature Grans % 0.4 %; Lymphocytes % 21.5 %; MCH 28.8 pg (27.0-33.0); MCHC 31.7 % (32.0-36.0); MCV 91 fL (80-95); MPV 9.2 fL (8.0-11.0); Monocytes % 10.7 %; Neutrophils % 64.2 %; Platelet Count 375 10^3/uL (130-400); RDW 16.5 % (11.8-14.1); RDW-SD 55.8 fL; WBC 10.64 10^3/uL (4.4-10.8)
[2023-12-22 18:03] LABS: ALT 37 U/L (16-63); AST 21 U/L (15-37); Albumin 3.5 g/dL (3.4-5.0); Alkaline Phosphatase 119 U/L (46-116); BUN 13 mg/dL (7-18); Bilirubin, Total 0.3 mg/dL (0.2-1.0); CREATININE 0.8 mg/dL (0.70-1.30); Calcium 8.8 mg/dL (8.5-10.1); Chloride 94 mmol/L (98-107); Estimated GFR 100.69 (mL/min/1.73m2); Glucose 96 mg/dL (74-106); Magnesium 1.4 mg/dL (1.8-2.4); NT-proBNP 23 pg/mL (<300); Potassium 3.5 mmol/L (3.5-5.1); Sodium 136 mmol/L (136-145); Total Protein 7.4 g/dL (6.4-8.2); Troponin I < 50 ng/L (< or =60)
[2023-12-22] MEDS: Methocarbamol 500 MG TAB PO (18:40)
[2023-12-22] MEDS: Lidocaine 5% Patch 1 PATCH TP (18:41)
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
== END 2023-12-22 18:45 | disposition home or self-care (01) ==
PROVIDERS: Emergency Provider Emergency Medicine; PCP Family Medicine
DX: M25.511 Pain in right shoulder (principal); R07.89 Other chest pain; R60.0 Localized edema; R07.81 Pleurodynia; J84.9 Interstitial pulmonary disease, unspecified; V47.5XXA Car driver injured in collision with fixed or stationary object in traffic accident, initial encounter
CPT/HCPCS: 80053; 93005; 96365; 99284; 71046; 71100; 73030; 83735; 83880; 84484; 85025; 93010; 99283; J0131

== ENCOUNTER 2023-12-25 11:06 | Emergency (ER) | payer OTHER, MEDICAID, SELFPAY ==
[2023-12-25 11:18] VITALS: BP 128/76; PULSE 101; RESP 20; TEMP 37.2; O2SAT 93
--- NOTE | 2023-12-25 11:33 | ED.GENADUL_ITS ---
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 Hypogonadism in male (Acute) Spermatocele of epididymis, multiple (Acute) Medical History Tinea cruris Spermatocele Seizure disorder Pt. states he had 1 seizure 13 years ago from a medication. But states he has not had one since. Restless legs Psychophysiologic insomnia Pain of left shoulder joint on movement Pain of left hip joint Pain in right knee Onycholysis Obstructive sleep apnea Migraine Spondylolisthesis, lumbar region Left atrial enlargement Injury of shoulder and upper arm Idiopathic peripheral neuropathy Herpesviral vesicular dermatitis Hx of fracture of vertebral column Fibromyositis Fatigue Disorder of upper respiratory system Degeneration of lumbar intervertebral disc Degeneration of cervical intervertebral disc Decreased testosterone level Closed fracture of proximal end of humerus Closed fracture of lumbar vertebra Claustrophobia Cervicogenic headache Bilateral knee pain 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 Acute hyponatremia Allergic rhinitis History of hypothyroidism History of back injury Sleep apnea Lumbar disc disease Cervical disc disease Depression Neuropathy Hypertension Seizure Hyperlipidemia GERD (gastroesophageal reflux disease) Surgical History H/O sinus surgery H/O nasal septoplasty Hx of cataract surgery Hx of shoulder surgery left History of back surgery History of orthopedic surgery finger mass Hx of tonsillectomy Hx of arthroscopy of knee H/O eye surgery foreign body removal H/O carpal tunnel repair H/O hernia repair Family History Mother Diabetes Heart disease Hypertension Father Hypertension Social History Smoking/Tobacco Use Status: Current every day Tobacco Type: cigarettes Tobacco: How many years used: 40 Smoking risk assessment performed?: Yes Alcohol Intake: never Drug use: Never Substance use type: does not use Housing: apartment Do you feel safe at home: Yes Do you feel safe in your relationship?: Yes Additional Social history: unable to assess privately
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
--- NOTE | 2023-12-25 11:45 | RT.EKG_ITS ---
APPROVED REPORT Exam: Resting ECG Reason for Exam: R sided CP Patient Location: E HR:86 bpm ECG Measurements Heart Rate 86 AXIS KY 219 P 29 QRSd 73 QRS -16 QT 354 T 30 QTc 424 Conclusion Sinus rhythm...normal P axis, V-rate 60- 99 Borderline prolonged KY interval...KY >212, V-rate 50- 90 Inferior infarct, old...Q >35mS, II III aVF Anteroseptal infarct, old...Q >40mS, V1-V2
[2023-12-25 12:13] LABS: BE (Venous) 13 mmol/L (-2-3); HCO3 (Venous) 38 mmol/L (23-28); O2 Sat (Venous) 70 %; TCO2 (Venous) 35 mmol/L (24-29); pH (Venous) 7.39 (7.31-7.41); pO2 (Venous) 37 mmHg
[2023-12-25 12:15] LABS: Abs Immature Grans 0.02 10^3/uL (0.0-0.06); Absolute Basophil Count 0.08 10^3/uL (0.0-0.2); Absolute Eosinophil Count 0.25 10^3/uL (0.0-0.7); Absolute Monocyte Count 0.93 10^3/uL (0.1-0.8); Absolute Neutrophil Count 5.73 10^3/uL (1.2-6.7); Basophils % 0.9 %; Eosinophils % 2.9 %; HGB 12.2 g/dL (13.5-17.5); Immature Grans % 0.2 %; Lymphocytes % 19.5 %; MCH 29.3 pg (27.0-33.0); MCHC 32.1 % (32.0-36.0); MCV 91 fL (80-95); MPV 8.8 fL (8.0-11.0); Monocytes % 10.7 %; Neutrophils % 65.8 %; Platelet Count 351 10^3/uL (130-400); RBC 4.16 10^6/uL (4.36-5.78); RDW 16.5 % (11.8-14.1); RDW-SD 55.3 fL; WBC 8.71 10^3/uL (4.4-10.8); pCO2 (Venous) 64 mmHg (41-51)
[2023-12-25] MEDS: fentaNYL 100 MCG/2 ML VIAL 50 MCG IVP ×2 (12:15→14:01)
[2023-12-25 12:16] LABS: Lactate 1.3 mmol/L (0.6-1.4)
[2023-12-25] MEDS: ACETAMINOPHEN 1,000 MG/100 ML BTL 400 MG IVPB (12:16)
[2023-12-25 12:17] LABS: ESR 20 mm/hr (0-20)
[2023-12-25 12:24] LABS: Ammonia 19 umol/L (11-32)
[2023-12-25 12:44] LABS: ALT 41 U/L (16-63); AST 24 U/L (15-37); Albumin 3.3 g/dL (3.4-5.0); Alkaline Phosphatase 127 U/L (46-116); Anion Gap 4.7 mmol/L (3-11); BUN 13 mg/dL (7-18); Bilirubin, Direct 0.1 mg/dL (0.0-0.2); Bilirubin, Total 0.3 mg/dL (0.2-1.0); CO2 38.3 mmol/L (21.0-32.0); CREATININE 0.7 mg/dL (0.70-1.30); Calcium 8.4 mg/dL (8.5-10.1); Chloride 96 mmol/L (98-107); Creatine Kinase 216 U/L (39-308); Estimated GFR 104.83 (mL/min/1.73m2); Glucose 113 mg/dL (74-106); Lipase 33 U/L (16-77); Magnesium 1.4 mg/dL (1.8-2.4); NT-proBNP 33 pg/mL (<300); Potassium 3.5 mmol/L (3.5-5.1); Sodium 139 mmol/L (136-145); TSH (W/Ref FT4) 1.35 uIU/mL (0.36-3.74); Troponin I < 50 ng/L (< or =60)
[2023-12-25 12:49] LABS: Procalcitonin < 0.1 ng/mL
[2023-12-25] MEDS: Omnipaque 350 MG/ML 100 ML BTL IJ (12:58)
[2023-12-25] MEDS: Normal Saline - Diluent 50 ML VIAL IV (12:59)
[2023-12-25 13:20] VITALS: BP 110/54; PULSE 84; RESP 20; TEMP 36.6; O2SAT 96
--- NOTE | 2023-12-25 13:25 | DI.CT_ITS ---
Exam(s) CT NECK W EXAM: CT NECK W CLINICAL HISTORY: neck pain, swelling R sided. TECHNIQUE: Imaging Protocol: Axial computed tomography images with coronal and sagittal reformatted images were created and reviewed. CONTRAST MATERIAL: Intravenous: Omnipaque 350 Contrast volume:100mL COMPARISON: CT CT CERVICAL SPINE WO from 12/01/2023 FINDINGS: The examination is limited due to patient motion artifact. Orbits and orbital soft tissues: Within normal limits. Visualized paranasal sinuses: There is mucosal thickening seen in the maxillary sinuses frontal sinu ses and several ethmoid air cells. There is a small fluid level in the left maxillary sinus. There is opacification of several right ethmoid air cells. The middle ears are unremarkable. Nasopharynx: Within normal limits. Oropharynx: Within normal limits. Hypopharynx: Within normal limits. Larynx: Within normal limits. Retropharyngeal space: Within normal limits. Parotids/submandibular: Within normal limits. There is a small fluid attenuation lesion superficial to the right parotid gland which may represent a sebaceous cyst. Thyroid gland: Within normal limits. Lymphadenopathy: There is scattered lymph nodes seen along the level one to level three all measurin g less than 8 mm in short axis diameter which are physiologic in nature. Trachea: Within normal limits. Bones: Within normal limits for the patient's age. There is reversal of the normal cervical lordosis . There is 2-3 mm anterolisthesis of C3 on C4 and 1-2 mm anterolisthesis of C4 on C5. Age-appropria te degenerative changes are present throughout the cervical spine. Carotids/Jugular: Within normal limits. Soft tissues: Within normal limits. IMPRESSION: 1. No acute fracture or subluxation in the cervical spine. 2. Sinusitis. Air-fluid level in the left maxillary sinus. This may represent acute disease. 3. No evidence of a soft tissue swelling or hematoma in the right side. 4. Age-appropriate degenerative changes seen in the cervical spine as described above. RADIATION DOSE DELIVERED: 565.28mGy.cm Total DLP 565.28mGy.cm Total DLP DATA REPOSITORY: All CT scans at this facility are submitted to the National Radiology Data Registry (NRDR) Dose Index Registry (DIR) with the [employer] (ACR). RADIATION OPTIMIZATION: All CT scans at this facility use at least one of these dose optimization te chniques: automated exposure control; mA and/or kV adjustment per patient size (includes targeted exa ms where dose is matched to clinical indication); or iterative reconstruction.
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
[2023-12-25 14:05] LABS: Bilirubin Negative (Negative); Blood Negative (Negative); Clarity Clear (Clear); Glucose Negative (Negative); Ketones Negative (Negative); Leukocyte Esterase Negative (Negative); Nitrite Negative (Negative); Specific Gravity <= 1.005 (1.005-1.025); Urobilinogen 0.2 mg/dL (Up to 0.2); pH 5.5 (5-8)
[2023-12-25 14:15] LABS: *AMPHETAMINES SCREEN URINE Negative (Negative); *BARBITURATES SCREEN URINE Negative (Negative); *BENZODIAZEPINES SCREEN URINE Negative (Negative); Cannabinoids THC Negative (Negative); Cocaine Screen,Urine Negative (Negative); METHADONE URINE SCREEN Negative (Negative); OPIATES URINE SCREEN Negative (Negative); Tricyclic Antidepressants Negative (Negative)
--- NOTE | 2023-12-25 14:57 | NUR.NOTE ---
[facility] in room with pt Nursing Note:
[2023-12-25 16:02] VITALS: BP 113/78; PULSE 88; RESP 18; TEMP 36.7; O2SAT 91
[2023-12-25] MEDS: oxyCODONE 5 MG TAB PO (16:02)
[2023-12-25 16:06] VITALS: BP 113/78; PULSE 88; RESP 18; TEMP 36.7; O2SAT 91
== END 2023-12-25 16:05 | disposition home or self-care (01) ==
PROVIDERS: Emergency Provider Physician Assistant; PCP Family Medicine
DX: R22.43 Localized swelling, mass and lump, lower limb, bilateral (principal); M54.50 Low back pain, unspecified; F99 Mental disorder, not otherwise specified; G89.29 Other chronic pain; M54.2 Cervicalgia; R10.9 Unspecified abdominal pain; V89.2XXD Person injured in unspecified motor-vehicle accident, traffic, subsequent encounter
CPT/HCPCS: 70491; 74177; 80048; 80076; 80307; 82550; 82805; 83690; 84145; 85652; 93005; 96365; 96375; 96376; 99285; 70450; 71260; 81003; 82140; 83605; 83735; 83880; 84443; 84484; 85025; 86140; 93010; 99283; J0131; J3010; J3490

== ENCOUNTER 2023-12-26 18:28 | Emergency (ER) | payer OTHER, MEDICAID, SELFPAY ==
[2023-12-26 18:36] VITALS: BP 159/88; PULSE 104; RESP 22; TEMP 36.7; O2SAT 94
--- NOTE | 2023-12-26 18:52 | ED.GENADUL_ITS ---
Discharge Plan Disposition Patient Disposition: Home Condition: Stable Discharge Details Clinical Impression: Lumbago with sciatica, right side, Compression fx, lumbar spine Primary Care Provider: Dg Nicole ED Provider: Shala Cassidy Home Meds and New Rx's Prescriptions: New prednisone 20 mg tablet 60 mg PO DAILY 5 Days Qty: 15 0RF Continued pramipexole 1 mg tablet 1 mg PO TID levothyroxine 88 mcg capsule 88 mcg PO DAILY atorvastatin 40 mg tablet 40 mg PO DAILY famotidine 40 mg tablet 40 mg PO QHS methocarbamol 750 mg tablet 750 mg PO Q4H PRN tamsulosin [Flomax] 0.4 mg capsule 0.4 mg PO BID Qty: 180 1RF Patient Comments: Pt states he is not taking albuterol sulfate 5 mg/mL solution for nebulization 2.5 mg inhalation Q6H PRN fluticasone propionate [Allergy Relief (fluticasone)] 50 mcg/actuation spray,suspension 1 spray intranasal DAILY Rx Instructions: administer into each nostril ipratropium bromide 21 mcg (0.03 %) spray,non-aerosol 2 spray intranasal TID Rx Instructions: administer into each nostril omeprazole 40 mg capsule,delayed release(DR/EC) 40 mg PO DAILY acetaminophen 500 mg tablet 500 mg PO Q6H PRN Anoro Ellipta 62.5-25 mcg/actuation blister with device 1 inh inhalation DAILY Qty: 60 6RF ibuprofen 600 mg tablet 600 mg PO QID PRN Patient Comments: TAKE ONE TABLET BY MOUTH FOUR TIMES A DAY NEEDED FOR 30 DAYS WITH FOOD albuterol sulfate 90 mcg/actuation HFA aerosol inhaler 2 puff INHALATION Q3-5H Patient Comments: INHALE TWO PUFFS BY MOUTH EVERY 3 HOURS NEEDED FOR 90 DAYS lidocaine [Lidoderm] 5 % adhesive patch,medicated 1 patch topical DAILY Qty: 15 0RF Rx Instructions: leave on most painful area for up to 12 hrs lidocaine 5 % adhesive patch,medicated 1 patch topical DAILY Qty: 30 0RF Rx Instructions: leave on most painful area for up to 12 hrs furosemide 40 mg tablet 40 mg PO BID Qty: 14 0RF Patient Comments: not working potassium chloride 20 mEq packet 20 meq PO DAILY Qty: 30 0RF magnesium L-lactate 84 mg tablet extended release 84 mg PO DAILY Qty: 10 0RF amoxicillin-pot clavulanate 875-125 mg tablet 1 tab PO BID 10 Days Qty: 20 0RF Discharge Instructions Instructions: Vertebral Compression Fracture (ED), Sciatica (ED), Low Back Strain (ED) Additional Instructions: Continue with the lidocaine patches, muscle relaxers Tylenol ibuprofen as previously prescribed. Please follow-up with your primary care provider to discuss further pain management. Please call to make an appointment with the pain clinic also. Take the steroid as directed. You were given a pain shot of Toradol, and given prednisone. Follow up with primary care provider in 3-5 days. Return to ED sooner if any worsening or concerns. Referrals: [facility] [Provider Group] - 3 days (Call to make an appointment) Dg Nicole [Primary Care Provider] - 3 days HPI General Mode of arrival: ambulatory . Date/Time Provider Initiated Documentation: 12/26/23 18:29 . Information obtained by: patient, family, RN notes reviewed and old records reviewed . HPI Narrative: 53-year-old male presents to the ER second time in 2 days with a chief complaint of lower back pain. Patient reports that he was a 3 days ago and has continued pain which radiates down his right leg. He has been taking Tylenol at home he did get it Percocet and fentanyl while he was here in the ER yesterday. He has had an extensive workup including CTs of his head chest abdomen pelvis CT and L- spine which showed some compression fractures that were possibly not acute in his L-spine. Please see previous result. He denies any loss of bowel or bladder control no saddle anesthesia. He does appear somewhat sleepy while asleep easily his states that he has not been sleeping well he reports that he feels drained from the pain. He is unable to get in to his PCP urgently he does have an upcoming appointment. Past medical history includes hypertension, seizure neuropathy depression GERD, fibromyositis, psychophysiologic insomnia and was just prescribed olanzapine today which he has not taken for his significant other. He has had surgery of his back. Related Data Home Medications Medication Instructions Recorded Confirmed pramipexole 1 mg tablet 1 mg PO TID 12/07/18 12/25/23 levothyroxine 88 mcg capsule 88 mcg PO DAILY 04/18/20 12/25/23 albuterol sulfate 90 mcg/actuation 2 puff inhalation Q3-5H 04/27/21 12/25/23 aerosol inhaler ibuprofen 600 mg tablet 600 mg PO QID PRN 04/27/21 12/25/23 atorvastatin 40 mg tablet 40 mg PO DAILY 10/04/22 12/25/23 famotidine 40 mg tablet 40 mg PO QHS 10/04/22 12/25/23 methocarbamol 750 mg tablet 750 mg PO Q4H PRN 10/04/22 12/25/23 acetaminophen 500 mg tablet 500 mg PO Q6H PRN 06/27/23 12/25/23 albuterol sulfate 5 mg/mL(0.5 %) 2.5 mg inhalation Q6H PRN 06/27/23 12/25/23 solution for nebulization fluticasone propionate 50 1 spray intranasal DAILY 06/27/23 12/25/23 mcg/actuation nasal spray,suspension (Allergy Relief (fluticasone)) ipratropium bromide 21 mcg (0.03 2 spray intranasal TID 06/27/23 12/25/23 %) nasal spray omeprazole 40 mg capsule,delayed 40 mg PO DAILY 06/27/23 12/25/23 release umeclidinium 62.5 mcg-vilanterol 1 inh inhalation DAILY #60 ea 09/08/23 12/25/23 25 mcg/actuation powdr for inhalation (Anoro Ellipta) lidocaine 5 % topical patch 1 patch topical DAILY #15 ea 11/22/23 12/25/23 (Lidoderm) lidocaine 5 % topical patch 1 patch topical DAILY #30 ea 12/01/23 12/25/23 furosemide 40 mg tablet 40 mg PO BID #14 tabs 12/05/23 12/25/23 magnesium L-lactate 84 mg 84 mg PO DAILY #10 tabs 12/05/23 12/25/23 tablet,extended release potassium chloride 20 mEq oral 20 meq PO DAILY #30 ea 12/05/23 12/25/23 packet tamsulosin 0.4 mg capsule (Flomax) 0.4 mg PO BID #180 caps 12/10/23 12/25/23 amoxicillin 875 mg-potassium 1 tab PO BID sinusitis 10 days #20 12/25/23 clavulanate 125 mg tablet tabs prednisone 20 mg tablet 60 mg (3 x 20 mg) PO DAILY 5 days 12/26/23 #15 tabs Previous Rx's Medication Instructions Recorded umeclidinium 62.5 mcg-vilanterol 1 inh inhalation DAILY #60 ea 09/08/23 25 mcg/actuation powdr for inhalation (Anoro Ellipta) lidocaine 5 % topical patch 1 patch topical DAILY #15 ea 11/22/23 (Lidoderm) lidocaine 5 % topical patch 1 patch topical DAILY #30 ea 12/01/23 furosemide 40 mg tablet 40 mg PO BID #14 tabs 12/05/23 magnesium L-lactate 84 mg 84 mg PO DAILY #10 tabs 12/05/23 tablet,extended release potassium chloride 20 mEq oral 20 meq PO DAILY #30 ea 12/05/23 packet tamsulosin 0.4 mg capsule (Flomax) 0.4 mg PO BID #180 caps 12/10/23 amoxicillin 875 mg-potassium 1 tab PO BID sinusitis 10 days #20 12/25/23 clavulanate 125 mg tablet tabs prednisone 20 mg tablet 60 mg (3 x 20 mg) PO DAILY 5 days 12/26/23 #15 tabs Allergies Allergy/AdvReac Type Severity Reaction Status Date / Time quetiapine Allergy Unknown OTHER Verified 12/26/23 18:41 codeine Allergy itching Verified 12/26/23 18:41 cyclobenzaprine Allergy OTHER Verified 12/26/23 18:41 [From Flexeril] lamotrigine AdvReac Intermediate sleep Verified 12/26/23 18:41 walking aspirin AdvReac stomach Verified 12/26/23 18:41 concerns risperidone [From Risperdal] AdvReac N&V Verified 12/26/23 18:41 rofecoxib [From Vioxx] AdvReac palpitation Verified 12/26/23 18:41 s General Stated Complaint: Nk/Back Pain ALEX: 3 Review of Systems All systems reviewed & are unremarkable except as noted in HPI and below Musculoskeletal Musculoskeletal: Reports back pain Exam Narrative Exam Narrative: Constitutional: Alert and oriented x2. . Appears stated age. Obese body habitus. Appears sleepy, slurred speech. Head: Normocephalic, no trauma. Eyes: Pupils PERRL, Red reflex noted, EOM's intact. Eyelids symmetrical without lesions, discharge, or swelling. ENT: Bilateral TM's WNL, External ear normal to inspection, no mastoid TTP, swelling, or erythema, Nasal turbinates WNL, no nasal discharge. Normal dentition, Posterior pharynx WNL, no exudate. Chest: RRR, Normal S1, S2, distal pulses intact. Resp: Lungs clear to auscultation bilaterally, no wheezes, rales, or rhonchi. Abdomen: Soft, non-distended, Normoactive bowel sounds all 4 quads. Musculoskeletal: Normal gait, Moves all 4 extremities without difficulty. Skin: No suspicious rashes or lesions. Capillary refill less than 2 sec. Neurologic: Cranial nerves II-XII intact. Alert and oriented x 3. Motor: No deficits noted. Sensory: Intact bilaterally all 4 extremities. Hematologic/Lymphatic: No ecchymosis, no lymphadenopathy. Course Vital Signs Vital signs: Vital Signs Temperature 36.7 C 12/26/23 18:36 Pulse 104 H 12/26/23 18:36 Respiratory Rate 22 12/26/23 18:36 Blood Pressure 159/88 H 12/26/23 18:36 Pulse Oximetry 94 12/26/23 18:36 Temperature 36.7 C 12/26/23 18:36 Temperature Source Skin 12/26/23 18:36 Pulse 104 H 12/26/23 18:36 Respiratory Rate 22 12/26/23 18:36 Respiratory Effort Normal, Non-Labored 12/26/23 18:40 Blood Pressure 159/88 H 12/26/23 18:36 Blood Pressure Position Sitting 12/26/23 18:36 Pulse Oximetry 94 12/26/23 18:36 Oxygen Delivery Method Room Air 12/26/23 18:36 Oxygen Flow Rate 0 12/26/23 18:36 Pain Level 10 12/26/23 18:36 Medical Decision Making 53-year-old male presents to the ER second time in 2 days with a chief complaint of lower back pain. Patient reports that he was a 3 days ago and has continued pain which radiates down his right leg. He has been taking Tylenol at home he did get it Percocet and fentanyl while he was here in the ER yesterday. He has had an extensive workup including CTs of his head chest abdomen pelvis CT and L- spine which showed some compression fractures that were possibly not acute in his L-spine. Please see previous result. He denies any loss of bowel or bladder control no saddle anesthesia. He does appear somewhat sleepy while asleep easily his states that he has not been sleeping well he reports that he feels drained from the pain. He is unable to get in to his PCP urgently he does have an upcoming appointment. Past medical history includes hypertension, seizure neuropathy depression GERD, fibromyositis, psychophysiologic insomnia and was just prescribed olanzapine today which he has not taken for his signific ant other. He has had surgery of his back. Upon medical record review patient was referred to his PCP for further pain control management. After review of his CT there are some mild L-spine osiel leah fractures. This could be causing patient's pain. I did discuss this with patient and family who verbalized understanding. Will place a lidocaine patch on patient here in the ER give Toradol IM, give prednisone. . At this time workup is not indicated as patient had extensive workup yesterday no significant falls or acute changes. patient is largely complaining of lower back pain. Patient is ambulatory upon discharge from the department. This text was generated using [employer] dictation system, please disregard any oddities of phrase or misspellings. Medical Records Medical records reviewed: Yes I reviewed the patient's medical records. Lab Data Lab results reviewed: Yes I reviewed the patient's lab results. Quality:SDOH Health Related Social Needs: No Data to Display PFSH All Active Problems (Updated 12/26/23 @ 19:01 by Shala Cassidy NP) Compression fx, lumbar spine (Acute) Lumbago with sciatica, right side (Acute) Chronic edema (Acute) Complex psychiatric condition (Acute) Contusion (Acute) Rib pain (Acute) Leg swelling (Acute) Hypomagnesemia (Acute) Hypokalemia (Acute) Neck arthralgia (Acute) Nicotine dependence, cigarettes, uncomplicated (Acute) Emphysema lung (Acute) Pulmonary hypertension (Acute) Hoarseness (Acute) Leukoplakia of larynx (Acute) Interstitial lung disease (Acute) Fibromyalgia (Acute) Depressive disorder (Chronic) Chronic pain (Chronic) Bipolar disorder (Acute) 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 Anasarca (Acute) Acute asthma (Acute) Xerostomia (Acute) Oral leukoplakia (Acute) Tobacco abuse (Acute) Chronic laryngitis (Acute) Nail dystrophy (Acute) Pain, foot (Acute) Corns and callosities (Acute) Bipolar 1 disorder (Acute) Anemia (Chronic) Acquired talipes planus (Acute) Hallux varus (acquired) (Acute) Asthma (Chronic) IGT (impaired glucose tolerance) (Acute) Peripheral neuropathy (Acute) Benign prostatic hyperplasia with hesitancy (Acute) Cortical cataract of left eye (Acute) Hypogonadism in male (Acute) Spermatocele of epididymis, multiple (Acute) Medical History Tinea cruris Spermatocele Seizure disorder Pt. states he had 1 seizure 13 years ago from a medication. But states he has not had one since. Restless legs Psychophysiologic insomnia Pain of left shoulder joint on movement Pain of left hip joint Pain in right knee Onycholysis Obstructive sleep apnea Migraine Spondylolisthesis, lumbar region Left atrial enlargement Injury of shoulder and upper arm Idiopathic peripheral neuropathy Herpesviral vesicular dermatitis Hx of fracture of vertebral column Fibromyositis Fatigue Disorder of upper respiratory system Degeneration of lumbar intervertebral disc Degeneration of cervical intervertebral disc Decreased testosterone level Closed fracture of proximal end of humerus Closed fracture of lumbar vertebra Claustrophobia Cervicogenic headache Bilateral knee pain 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 Acute hyponatremia Allergic rhinitis History of hypothyroidism History of back injury Sleep apnea Lumbar disc disease Cervical disc disease Depression Neuropathy Hypertension Seizure Hyperlipidemia GERD (gastroesophageal reflux disease) Surgical History H/O sinus surgery H/O nasal septoplasty Hx of cataract surgery Hx of shoulder surgery left History of back surgery History of orthopedic surgery finger mass Hx of tonsillectomy Hx of arthroscopy of knee H/O eye surgery foreign body removal H/O carpal tunnel repair H/O hernia repair Family History Mother Diabetes Heart disease Hypertension Father Hypertension Social History Smoking/Tobacco Use Status: Current every day Tobacco Type: cigarettes Tobacco: How many years used: 40 Smoking risk assessment performed?: Yes Alcohol Intake: never Drug use: Never Substance use type: does not use Housing: apartment Do you feel safe at home: Yes Do you feel safe in your relationship?: Yes Additional Social history: unable to assess privately
[2023-12-26] MEDS: Lidocaine 5% Patch 1 PATCH TP (19:08)
[2023-12-26] MEDS: predniSONE 20 MG TAB 40 MG PO (19:08)
[2023-12-26] MEDS: Ketorolac 60 MG/2 ML VIAL IM (19:08)
== END 2023-12-26 19:20 | disposition home or self-care (01) ==
PROVIDERS: Emergency Provider Registered Nurse Emergency; PCP Family Medicine
DX: M54.41 Lumbago with sciatica, right side (principal); I11.0 Hypertensive heart disease with heart failure; I50.9 Heart failure, unspecified; G40.909 Epilepsy, unspecified, not intractable, without status epilepticus; Z79.899 Other long term (current) drug therapy
CPT/HCPCS: 96372; 99284; 99283; J1885; J7512

== ENCOUNTER → 2023-12-30 10:14 | Outpatient (BNVA) | payer OTHER, MEDICAID, SELFPAY | PROVIDERS: PCP Family Medicine; Referring Provider Family Medicine; Visit Provider Physician Assistant Surgical | DX: R05.9 Cough, unspecified (principal); J84.9 Interstitial pulmonary disease, unspecified | CPT/HCPCS: 36415; 76604; 99214 ==

== ENCOUNTER 2023-12-30 16:34 | Outpatient (REF) | payer OTHER, MEDICAID, SELFPAY ==
[2023-12-30 23:16] LABS: PSA, Diagnostic 0.9 ng/mL (<=4.5)
== END 2023-12-30 16:35 | disposition home or self-care (01) ==
LOC: LBN 16:34
PROVIDERS: Nurse Practitioner Gerontology; PCP Family Medicine; Visit Provider Physician Assistant Surgical
DX: N40.1 Benign prostatic hyperplasia with lower urinary tract symptoms (principal); R39.11 Hesitancy of micturition
CPT/HCPCS: 84153

== ENCOUNTER 2024-01-03 11:14 | Emergency (ER) | payer OTHER, MEDICAID, SELFPAY ==
[2024-01-03] VITALS (13 sets, daily range): BP systolic 110–143; BP diastolic 68–101; PULSE 76–93; RESP 13–24; TEMP 36.8–36.9; O2SAT 87–93
--- NOTE | 2024-01-03 11:15 | RT.EKG_ITS ---
APPROVED REPORT Exam: Resting ECG Reason for Exam: Heart Palpations Patient Location: E HR:84 bpm ECG Measurements Heart Rate 84 AXIS IA 207 P 49 QRSd 70 QRS 8 QT 350 T 61 QTc 415 Conclusion Sinus rhythm...normal P axis, V-rate 60- 99
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
[2024-01-03] MEDS: Albuterol/Ipratropium 3 ML UPD VIAL UPD (12:01)
[2024-01-03 12:30] LABS: BE (Venous) 17 mmol/L (-2-3); HCO3 (Venous) 42 mmol/L (23-28); O2 Sat (Venous) 72 %; TCO2 (Venous) 38 mmol/L (24-29); pH (Venous) 7.39 (7.31-7.41); pO2 (Venous) 37 mmHg
[2024-01-03 12:32] LABS: Lactate 1.3 mmol/L (0.6-1.4)
[2024-01-03 12:37] LABS: Abs Immature Grans 0.07 10^3/uL (0.0-0.06); Absolute Basophil Count 0.13 10^3/uL (0.0-0.2); Absolute Eosinophil Count 0.41 10^3/uL (0.0-0.7); Absolute Lymphocyte Count 2.97 10^3/uL (1.2-3.4); Absolute Monocyte Count 0.97 10^3/uL (0.1-0.8); Basophils % 1.1 %; Eosinophils % 3.6 %; HCT 41.7 % (40.0-50.0); HGB 13.4 g/dL (13.5-17.5); Immature Grans % 0.6 %; Lymphocytes % 26.1 %; MCH 28.9 pg (27.0-33.0); MCHC 32.1 % (32.0-36.0); MCV 90 fL (80-95); MPV 9.4 fL (8.0-11.0); Monocytes % 8.5 %; Neutrophils % 60.1 %; Platelet Count 444 10^3/uL (130-400); RBC 4.64 10^6/uL (4.36-5.78); RDW 16.4 % (11.8-14.1); RDW-SD 54.4 fL; WBC 11.37 10^3/uL (4.4-10.8); pCO2 (Venous) 69 mmHg (41-51)
[2024-01-03 12:41] LABS: Absolute Neutrophil Count 6.83 10^3/uL (1.2-6.7); ESR 18 mm/hr (0-20)
[2024-01-03 12:49] LABS: Bilirubin Negative (Negative); Blood Negative (Negative); Clarity Clear (Clear); Glucose Negative (Negative); Ketones Negative (Negative); Leukocyte Esterase Negative (Negative); Nitrite Negative (Negative); Specific Gravity 1.015 (1.005-1.025); Urobilinogen 0.2 mg/dL (Up to 0.2)
[2024-01-03 13:03] LABS: D-Dimer 1169 ng/mlFEU (<500)
[2024-01-03 13:08] LABS: Procalcitonin < 0.1 ng/mL
[2024-01-03 13:09] LABS: ALT 61 U/L (16-63); AST 31 U/L (15-37); Albumin 3.8 g/dL (3.4-5.0); Alkaline Phosphatase 128 U/L (46-116); BUN 12 mg/dL (7-18); Bilirubin, Direct 0.1 mg/dL (0.0-0.2); Bilirubin, Total 0.3 mg/dL (0.2-1.0); C-Reactive Protein 0.51 mg/dL (<or=0.5); CREATININE 0.7 mg/dL (0.70-1.30); Calcium 8.5 mg/dL (8.5-10.1); Chloride 92 mmol/L (98-107); Estimated GFR 104.83 (mL/min/1.73m2); Glucose 108 mg/dL (74-106); Lipase 30 U/L (16-77); Magnesium 1.7 mg/dL (1.8-2.4); NT-proBNP 19 pg/mL (<300); Potassium 3.1 mmol/L (3.5-5.1); Sodium 137 mmol/L (136-145); Total Protein 7.7 g/dL (6.4-8.2); Troponin I < 50 ng/L (< or =60)
--- NOTE | 2024-01-03 13:15 | DI.CT_ITS ---
Exam(s) CT CHEST PE CTA EXAM: CT CHEST PE CTA CLINICAL HISTORY: elev d-dimer, hypoxia. TECHNIQUE: Imaging Protocol: CT angiography of the chest was performed using pulmonary embolus nancy col. Multi planar reconstructions were performed. CONTRAST MATERIAL: Intravenous: Omnipaque 350 Contrast volume: 100 cc COMPARISON: CT CT THORACIC LUMBAR SPINE REC from 12/25/2023 FINDINGS: CHEST: PULMONARY ARTERIES: There are no intraluminal filling defects to suggest acute pulmonary emboli. LUNGS: There is some chronic appearing interstitial disease in both lung be. No ominous nodules. . There are no pleural effusions. MEDIASTINUM: There is no hilar nor mediastinal adenopathy. Visualized thyroid unremarkable. CARDIAC: Heart size is upper normal. There is no pericardial effusion.Caliber of the thoracic aorta is within normal limits. No evidence of aortic dissection. There is no significant shift of the inte rventricular septum. PARTIALLY VISUALIZED UPPERMOST ABDOMEN: Hepatic steatosis. No splenomegaly. No adrenal masses. OSSEOUS: Nonunion fracture posterolateral aspect left 8th and 9th ribs. Healed fracture right 8th ri b no acute fractures evident.. IMPRESSION: 1. No evidence of acute pulmonary emboli. No evidence of pulmonary infarction.No pleural effusions. 2. There appears to be an element of chronic interstitial disease in both lungs. 3. No evidence of aortic dissection nor pericardial effusion. Rib findings as above. RADIATION DOSE DELIVERED: 518.13mGy.cm Total DLP DATA REPOSITORY: All CT scans at this facility are submitted to the National Radiology Data Registry (NRDR) Dose Index Registry (DIR) with the [employer] (ACR). RADIATION OPTIMIZATION: All CT scans at this facility use at least one of these dose optimization te chniques: automated exposure control; mA and/or kV adjustment per patient size (includes targeted exa ms where dose is matched to clinical indication); or iterative reconstruction.
[2024-01-03] MEDS: Normal Saline - Diluent 50 ML VIAL IJ (13:45)
[2024-01-03] MEDS: Omnipaque 350 MG/ML 100 ML BTL IJ (13:45)
[2024-01-03] MEDS: Ketorolac 15 MG/ML VIAL IVP (13:46)
[2024-01-03] MEDS: ACETAMINOPHEN 1,000 MG/100 ML BTL 400 MG IVPB (14:08)
--- NOTE | 2024-01-03 14:47 | DI.VRAD_ITS ---
PROCEDURE INFORMATION: Exam: CTA Chest With Contrast Exam date and time: 01/03/2024 1:58 PM Age: 63 years old Clinical indication: Other: Elev d-dimer, hypoxia TECHNIQUE: Imaging protocol: Computed tomographic angiography of the chest with contrast. Exam focused on the arteries. 3D rendering (Not supervised by radiologist): MIP and/or 3D reconstructed images were created by the technologist. Contrast material: OMNIPAQUE 350; Contrast volume: 100 ml; Contrast route: INTRAVENOUS (IV); COMPARISON: CT CHEST PE CTA 05/09/2023 5:06 PM FINDINGS: Pulmonary arteries: No evidence of pulmonary embolus to the segmental level. Aorta: No aneurysm of the aorta. No dissection of the aorta. Lungs: Unremarkable. No consolidation. No masses. Pleural spaces: Unremarkable. No pneumothorax. No pleural effusion. Heart: Unremarkable. No cardiomegaly. No pericardial effusion. Lymph nodes: 17 x 16 mm node in the preaortic region. Seventeen by 14 mm node anterior to the trachea. Liver: Lobulated liver consistent with cirrhosis Bones/joints: Acute Minimally displaced anterior 7th rib fracture (series 7, image 101).. Incompletely healed posterior left rib fractures. T7 and T8 compression fractures of unknown age. Soft tissues: Unremarkable. IMPRESSION: 1. No evidence of pulmonary embolus to the segmental level. 2. No aneurysm of the aorta. 3. No dissection of the aorta. 4. 17 x 16 mm node in the preaortic region. Seventeen by 14 mm node anterior to the trachea. 5. Acute Minimally displaced anterior 7th rib fracture (series 7, image 101).. 6. T7 and T8 compression fractures of unknown age. Dictated and Authenticated by: Andrew Alford MD. Ordering:RADHA Weston MD
--- NOTE | 2024-01-04 12:45 | W.ED.FU ---
Date of service: 01/04/24 Time of Service: 12:45 Follow Up Plan: Patient's blood culture from yesterday is growing gram-positive cocci in clusters, called the patient to advised to come back here for reevaluation but no answer so voicemail message was left to have him return the call back. I discussed the results.
--- NOTE | 2024-01-04 12:47 | W.EDPROG ---
Date of service: 01/04/24 Time of Service: 12:48 Medical Decision Making I discussed the results with the patient after he called back, he is feeling mildly improved with his difficulty breathing that he was here for yesterday, denies any fevers. Discussed the blood culture results and advise he should come back as soon as possible for reassessment and likely repeat blood cultures at the minimum. He voiced understanding of this. Quality:SDOH Health Related Social Needs: No Data to Display Discharge Plan Disposition Patient Disposition: Home Condition: Stable Discharge Details Clinical Impression: Chronic edema, Acute exacerbation of chronic bronchitis Primary Care Provider: Dg Nicole ED Provider: Enrico Ch Home Meds and New Rx's Prescriptions: New azithromycin 250 mg tablet See Rx Instructions .ROUTE .COMPLEX Qty: 6 0RF Rx Instructions: For 250 mg dose pack: take 500 mg today (day 1), then 250 mg for 4 days (days 2-5) prednisone 20 mg tablet 40 mg PO DAILY 5 Days Qty: 10 0RF potassium chloride 10 mEq capsule, extended release 10 meq PO DAILY 7 Days Qty: 7 0RF Continued pramipexole 1 mg tablet 1 mg PO TID levothyroxine 88 mcg capsule 88 mcg PO DAILY atorvastatin 40 mg tablet 40 mg PO DAILY famotidine 40 mg tablet 40 mg PO QHS methocarbamol 750 mg tablet 750 mg PO Q4H PRN tamsulosin [Flomax] 0.4 mg capsule 0.4 mg PO BID Qty: 180 1RF Hold Instructions: Pt Stopped/Never Started Patient Comments: Pt states he is not taking torsemide 20 mg tablet 160 mg PO DIRECTED Rx Instructions: 4tabs in am 4 tabs in hs albuterol sulfate 5 mg/mL solution for nebulization 2.5 mg inhalation Q6H PRN fluticasone propionate [Allergy Relief (fluticasone)] 50 mcg/actuation spray,suspension 1 spray intranasal DAILY Rx Instructions: administer into each nostril ipratropium bromide 21 mcg (0.03 %) spray,non-aerosol 2 spray intranasal TID Rx Instructions: administer into each nostril omeprazole 40 mg capsule,delayed release(DR/EC) 40 mg PO DAILY acetaminophen 500 mg tablet 500 mg PO Q6H PRN Anoro Ellipta 62.5-25 mcg/actuation blister with device 1 inh inhalation DAILY Qty: 60 6RF ibuprofen 600 mg tablet 600 mg PO QID PRN Patient Comments: TAKE ONE TABLET BY MOUTH FOUR TIMES A DAY NEEDED FOR 30 DAYS WITH FOOD albuterol sulfate 90 mcg/actuation HFA aerosol inhaler 2 puff INHALATION Q3-5H Patient Comments: INHALE TWO PUFFS BY MOUTH EVERY 3 HOURS NEEDED FOR 90 DAYS lidocaine [Lidoderm] 5 % adhesive patch,medicated 1 patch topical DAILY Qty: 15 0RF Rx Instructions: leave on most painful area for up to 12 hrs lidocaine 5 % adhesive patch,medicated 1 patch topical DAILY Qty: 30 0RF Rx Instructions: leave on most painful area for up to 12 hrs furosemide 40 mg tablet 40 mg PO BID Qty: 14 0RF Hold Instructions: Pt Stopped/Never Started Patient Comments: not working potassium chloride 20 mEq packet 20 meq PO DAILY Qty: 30 0RF magnesium L-lactate 84 mg tablet extended release 84 mg PO DAILY Qty: 10 0RF Hold Instructions: Pt Stopped/Never Started Discharge Instructions Instructions: Prednisone (By mouth), Azithromycin (By mouth), Hydrocodone (By mouth), Rib Fracture (ED), COPD (Chronic Obstructive Pulmonary Disease) (ED), Lymphedema (ED) Additional Instructions: You were seen in the emergency department for your palpitations and generalized fatigue. You have mildly low oxygen but you do have oxygen available at home, this is not an admittable case of hypoxic respiratory failure. You likely are having a COPD exacerbation with possible cause as allergy season, I have sent azithromycin to [facility] in [place] as well as 5 days of prednisone to help with your breathing issues. You have right seventh anterior rib fracture I have sent you home with 4 tablets of hydrocodone for this. Please take Tylenol and anti-inflammatories as needed as well. Continue your at home oxygen and breathing treatments. Please talk to your primary care provider about finding a lymphedema provider as you do have chronic leg edema but without evidence of CHF or kidney failure. Please return to the emergency department for any severe respiratory distress, chest pain, fever, nausea or intractable vomiting, or any other emergent concerns. Referrals: Dg Nicole [Primary Care Provider] - Discharge Data Discharge Date/Time-TO BE ENTERED AT DEPARTURE: 01/03/24 15:55
== END 2024-01-03 15:55 | disposition home or self-care (01) ==
PROVIDERS: Emergency Provider Physician Assistant; PCP Family Medicine
DX: R60.0 Localized edema; J44.1 Chronic obstructive pulmonary disease with (acute) exacerbation; R00.2 Palpitations; R53.83 Other fatigue
CPT/HCPCS: 00123; 71275; 80048; 80076; 82805; 83690; 84145; 85652; 87040; 87077; 93005; 94640; 96374; 96375; 99285; 81003; 83605; 83735; 83880; 84484; 85025; 85379; 86140; 93010; 99283; J0131; J1885; J3490; J7620

== ENCOUNTER 2024-01-04 14:32 | Inpatient (IN) | payer OTHER, MEDICAID, SELFPAY ==
[2024-01-04] VITALS (22 sets, daily range): BP systolic 115–166; BP diastolic 70–111; PULSE 81–105; RESP 16–27; TEMP 36.2–37.1; O2SAT 90–96
--- NOTE | 2024-01-04 14:45 | DI.RAD_ITS ---
Exam(s) XR PORTABLE CHEST AP EXAM: XR PORTABLE CHEST AP CLINICAL HISTORY: fever. TECHNIQUE: 2D digital imaging was performed. COMPARISON: CR,XR XR RIBS RT W PA LAT CHEST from 12/22/[address] CHEST PE CTA from 01/03/2024 FINDINGS: Single AP portable view. Heart size is upper normal. The mediastinum is not widened. Interstitial disease both lungs which appears relatively symmetrical. There are no pleural effusions . No confluent infiltrates seen. IMPRESSION: Bilateral interstitial lung disease. DATA REPOSITORY: RADIATION DOSE DELIVERED:
[2024-01-04 15:19] LABS: BE (Venous) 13 mmol/L (-2-3); HCO3 (Venous) 37 mmol/L (23-28); O2 Sat (Venous) 71 %; TCO2 (Venous) 34 mmol/L (24-29); pCO2 (Venous) 55 mmHg (41-51); pH (Venous) 7.44 (7.31-7.41); pO2 (Venous) 35 mmHg
[2024-01-04 15:22] LABS: Absolute Basophil Count 0.03 10^3/uL (0.0-0.2); Absolute Eosinophil Count 0.02 10^3/uL (0.0-0.7); Absolute Lymphocyte Count 2.12 10^3/uL (1.2-3.4); Absolute Monocyte Count 1.02 10^3/uL (0.1-0.8); Basophils % 0.2 %; Eosinophils % 0.1 %; HCT 37.4 % (40.0-50.0); HGB 12.2 g/dL (13.5-17.5); Immature Grans % 0.7 %; Lymphocytes % 14.1 %; MCHC 32.6 % (32.0-36.0); MCV 89 fL (80-95); MPV 8.9 fL (8.0-11.0); Monocytes % 6.8 %; Neutrophils % 78.1 %; Platelet Count 415 10^3/uL (130-400); RBC 4.21 10^6/uL (4.36-5.78); RDW 16.5 % (11.8-14.1); RDW-SD 53.6 fL; WBC 15.06 10^3/uL (4.4-10.8)
[2024-01-04 15:23] LABS: Absolute Neutrophil Count 11.76 10^3/uL (1.2-6.7)
[2024-01-04 15:26] LABS: Lactate 2.6 mmol/L (0.6-1.4)
[2024-01-04] MEDS: PIPERACILLIN/TAZO 3.375 GM in Normal Saline 100 ML IVPB (15:32)
[2024-01-04] MEDS: VANCOMYCIN/WATER (PEG) 1.5 GM/300 ML BAG IV (15:35)
[2024-01-04 15:40] LABS: ALT 54 U/L (16-63); AST 24 U/L (15-37); Albumin 3.5 g/dL (3.4-5.0); Alkaline Phosphatase 120 U/L (46-116); Anion Gap 6.5 mmol/L (3-11); BUN 15 mg/dL (7-18); Bilirubin, Total 0.3 mg/dL (0.2-1.0); CO2 36.5 mmol/L (21.0-32.0); Calcium 8.6 mg/dL (8.5-10.1); Chloride 92 mmol/L (98-107); Estimated GFR 85.63 (mL/min/1.73m2); Glucose 144 mg/dL (74-106); Sodium 135 mmol/L (136-145); Total Protein 7.3 g/dL (6.4-8.2)
--- NOTE | 2024-01-04 15:41 | DI.VRAD_ITS ---
PROCEDURE INFORMATION: Exam: XR Chest Exam date and time: 01/04/2024 3:01 PM Age: 63 years old Clinical indication: Fever TECHNIQUE: Imaging protocol: Radiologic exam of the chest. Views: 1 view. COMPARISON: CT CHEST PE CTA 01/03/2024 1:58 PM FINDINGS: Lungs: Unremarkable. No consolidation. Pleural spaces: Unremarkable. No pleural effusion. No pneumothorax. Heart/Mediastinum: Unremarkable. No cardiomegaly. Bones/joints: Unremarkable. IMPRESSION: No acute findings. Dictated and Authenticated by: Andrew Alford MD. Ordering:[facility] Juni Wolf MD
[2024-01-04] MEDS: ALPRAZolam 0.5 MG TAB PO (15:42)
[2024-01-04 15:43] LABS: Potassium 2.8 mmol/L (3.5-5.1)
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
--- NOTE | 2024-01-04 15:58 | W.ED.GENAD ---
Discharge Plan Disposition Patient Disposition: Admit to [facility] Condition: Stable Discharge Details Clinical Impression: Blood bacterial culture positive, Emphysema lung, Hypokalemia, Leukocytosis Primary Care Provider: Dg Nicole ED Provider: Woody Alfredo Home Meds and New Rx's Prescriptions: No Action pramipexole 1 mg tablet 1 mg PO TID levothyroxine 88 mcg capsule 88 mcg PO DAILY atorvastatin 40 mg tablet 40 mg PO DAILY famotidine 40 mg tablet 40 mg PO QHS methocarbamol 750 mg tablet 750 mg PO Q4H PRN tamsulosin [Flomax] 0.4 mg capsule 0.4 mg PO BID Qty: 180 1RF Hold Instructions: Pt Stopped/Never Started Patient Comments: Pt states he is not taking torsemide 20 mg tablet 160 mg PO DIRECTED Patient Comments: unsure if taking as pt says 'it doesn't work' Rx Instructions: 4tabs in am 4 tabs in hs albuterol sulfate 5 mg/mL solution for nebulization 2.5 mg inhalation Q6H PRN fluticasone propionate [Allergy Relief (fluticasone)] 50 mcg/actuation spray,suspension 1 spray intranasal DAILY Rx Instructions: administer into each nostril ipratropium bromide 21 mcg (0.03 %) spray,non-aerosol 2 spray intranasal TID Rx Instructions: administer into each nostril omeprazole 40 mg capsule,delayed release(DR/EC) 40 mg PO DAILY acetaminophen 500 mg tablet 500 mg PO Q6H PRN Anoro Ellipta 62.5-25 mcg/actuation blister with device 1 inh inhalation DAILY Qty: 60 6RF ibuprofen 600 mg tablet 600 mg PO QID PRN Patient Comments: TAKE ONE TABLET BY MOUTH FOUR TIMES A DAY NEEDED FOR 30 DAYS WITH FOOD albuterol sulfate 90 mcg/actuation HFA aerosol inhaler 2 puff INHALATION Q3-5H Patient Comments: INHALE TWO PUFFS BY MOUTH EVERY 3 HOURS NEEDED FOR 90 DAYS lidocaine 5 % adhesive patch,medicated 1 patch topical DAILY Qty: 30 0RF Rx Instructions: leave on most painful area for up to 12 hrs furosemide 40 mg tablet 40 mg PO BID Qty: 14 0RF Hold Instructions: Pt Stopped/Never Started Patient Comments: not working per pt, unsure if pt is still taking potassium chloride 20 mEq packet 20 meq PO DAILY Qty: 30 0RF magnesium L-lactate 84 mg tablet extended release 84 mg PO DAILY Qty: 10 0RF Hold Instructions: Pt Stopped/Never Started azithromycin 250 mg tablet See Rx Instructions .ROUTE .COMPLEX Qty: 6 0RF Rx Instructions: For 250 mg dose pack: take 500 mg today (day 1), then 250 mg for 4 days (days 2-5) prednisone 20 mg tablet 40 mg PO DAILY 5 Days Qty: 10 0RF Patient Comments: pt unsure potassium chloride 10 mEq capsule, extended release 10 meq PO DAILY 7 Days Qty: 7 0RF HPI General Date/Time Provider Initiated Documentation: 01/04/24 14:34. Limitations to Documentation: no limitations. Information obtained by: patient, family and old records reviewed. HPI Narrative: 63-year-old gentleman with past medical history including COPD, bipolar disorder, interstitial lung disease, pulmonary hypertension presents for evaluation of positive blood culture. Patient was patient in the emergency department yesterday with chief complaint of fatigue, shortness of breath worsening chronic edema. Patient was evaluated yesterday and thought to have a COPD exacerbation. Workup fairly benign and patient was discharged home. He reports that today he just feels very crummy. He denies worsened cough. He denies any skin changes. He denies any fever. He states that he just does not feel well. Related Data Home Medications Medication Instructions Recorded Confirmed pramipexole 1 mg tablet 1 mg PO TID 12/07/18 01/04/24 levothyroxine 88 mcg capsule 88 mcg PO DAILY 04/18/20 01/04/24 albuterol sulfate 90 mcg/actuation 2 puff inhalation Q3-5H 04/27/21 01/04/24 aerosol inhaler ibuprofen 600 mg tablet 600 mg PO QID PRN 04/27/21 01/04/24 atorvastatin 40 mg tablet 40 mg PO DAILY 10/04/22 01/04/24 famotidine 40 mg tablet 40 mg PO QHS 10/04/22 01/04/24 methocarbamol 750 mg tablet 750 mg PO Q4H PRN 10/04/22 01/04/24 acetaminophen 500 mg tablet 500 mg PO Q6H PRN 06/27/23 01/04/24 albuterol sulfate 5 mg/mL(0.5 %) 2.5 mg inhalation Q6H PRN 06/27/23 01/04/24 solution for nebulization fluticasone propionate 50 1 spray intranasal DAILY 06/27/23 01/04/24 mcg/actuation nasal spray,suspension (Allergy Relief (fluticasone)) ipratropium bromide 21 mcg (0.03 2 spray intranasal TID 06/27/23 01/04/24 %) nasal spray omeprazole 40 mg capsule,delayed 40 mg PO DAILY 06/27/23 01/04/24 release umeclidinium 62.5 mcg-vilanterol 1 inh inhalation DAILY #60 ea 09/08/23 01/04/24 25 mcg/actuation powdr for inhalation (Anoro Ellipta) lidocaine 5 % topical patch 1 patch topical DAILY #30 ea 12/01/23 01/04/24 furosemide 40 mg tablet 40 mg PO BID #14 tabs 12/05/23 01/04/24 magnesium L-lactate 84 mg 84 mg PO DAILY #10 tabs 12/05/23 01/04/24 tablet,extended release potassium chloride 20 mEq oral 20 meq PO DAILY #30 ea 12/05/23 01/04/24 packet tamsulosin 0.4 mg capsule (Flomax) 0.4 mg PO BID #180 caps 12/10/23 01/04/24 torsemide 20 mg tablet 160 mg PO DIRECTED 12/30/23 01/04/24 azithromycin 250 mg tablet See Rx Instructions PO .COMPLEX #6 01/03/24 01/04/24 tabs potassium chloride 10 mEq 10 meq PO DAILY 7 days #7 caps 01/03/24 01/04/24 capsule,extended release prednisone 20 mg tablet 40 mg (2 x 20 mg) PO DAILY 5 days 01/03/24 01/04/24 #10 tabs Previous Rx's Medication Instructions Recorded umeclidinium 62.5 mcg-vilanterol 1 inh inhalation DAILY #60 ea 09/08/23 25 mcg/actuation powdr for inhalation (Anoro Ellipta) lidocaine 5 % topical patch 1 patch topical DAILY #30 ea 12/01/23 furosemide 40 mg tablet 40 mg PO BID #14 tabs 12/05/23 magnesium L-lactate 84 mg 84 mg PO DAILY #10 tabs 12/05/23 tablet,extended release potassium chloride 20 mEq oral 20 meq PO DAILY #30 ea 12/05/23 packet tamsulosin 0.4 mg capsule (Flomax) 0.4 mg PO BID #180 caps 12/10/23 azithromycin 250 mg tablet See Rx Instructions PO .COMPLEX #6 01/03/24 tabs potassium chloride 10 mEq 10 meq PO DAILY 7 days #7 caps 01/03/24 capsule,extended release prednisone 20 mg tablet 40 mg (2 x 20 mg) PO DAILY 5 days 01/03/24 #10 tabs Allergies Allergy/AdvReac Type Severity Reaction Status Date / Time quetiapine Allergy Unknown OTHER Verified 01/04/24 14:40 codeine Allergy itching Verified 01/04/24 14:40 cyclobenzaprine Allergy OTHER Verified 01/04/24 14:40 [From Flexeril] lamotrigine AdvReac Intermediate sleep Verified 01/04/24 14:40 walking aspirin AdvReac stomach Verified 01/04/24 14:40 concerns risperidone [From Risperdal] AdvReac N&V Verified 01/04/24 14:40 rofecoxib [From Vioxx] AdvReac palpitation Verified 01/04/24 14:40 s General Stated Complaint: Recheck ALEX: 3 Exam Narrative Exam Narrative: Review of Systems: All systems reviewed & are unremarkable except as noted in HPI and below Well-developed, no acute distress NCAT PERRL, normal conjunctiva RRR, no murmur Unlabored respiratory effort, no hypoxia or tachypnea, clear bilaterally without wheezing Nondistended abdomen , nontender Extremities w/o deformity, no cyanosis 2+ edema bilaterally No rashes or lesions. no focal neurologic deficits Appropriate mood and affect Course Vital Signs Vital signs: Vital Signs Pulse Oximetry 96 01/04/24 14:40 Temperature 37.1 C 01/04/24 14:43 Temperature Source Oral 01/04/24 14:43 Pulse 83 01/04/24 15:46 Pulse 91 H 01/04/24 15:50 Respiratory Rate 23 01/04/24 15:50 Respiratory Effort Normal 01/04/24 15:42 Respiratory Depth Normal 01/04/24 15:42 Respiratory Pattern Normal 01/04/24 15:42 Blood Pressure 136/80 01/04/24 15:46 Blood Pressure Mean 92 01/04/24 15:46 Blood Pressure Position Sitting 01/04/24 14:43 Pulse Oximetry 94 01/04/24 15:50 Oxygen Delivery Method Room Air 01/04/24 14:43 Oxygen Flow Rate 0 01/04/24 14:43 Pain Level 10 01/04/24 14:43 Comment requesting pain meds on arrival. 01/04/24 14:43 Lab/Test Results Lab/Test Results: 01/04/24 15:12 Blood Blood Culture - Pending 01/04/24 15:10 Blood Blood Culture - Pending Laboratory Tests Range/Units 01/04/24 15:12 WBC (4.4-10.8) 10^3/uL 15.06 H RBC (4.36-5.78) 10^6/uL 4.21 L Hgb (13.5-17.5) g/dL 12.2 L Hct (40.0-50.0) % 37.4 L MCV (80-95) fL 89 MCH (27.0-33.0) pg 29.0 MCHC (32.0-36.0) % 32.6 RDW (11.8-14.1) % 16.5 H Plt Count (130-400) 10^3/uL 415 H MPV (8.0-11.0) fL 8.9 Immature Gran % % 0.7 Neutrophils % % 78.1 Lymphocytes % % 14.1 Monocytes % % 6.8 Eosinophils % % 0.1 Basophils % % 0.2 Nucleated RBC % (0.0-0.3) % 0.0 Absolute Neutrophils (1.2-6.7) 10^3/uL 11.76 H Absolute Lymphocytes (1.2-3.4) 10^3/uL 2.12 Absolute Monocytes (0.1-0.8) 10^3/uL 1.02 H Absolute Eosinophils (0.0-0.7) 10^3/uL 0.02 Absolute Basophils (0.0-0.2) 10^3/uL 0.03 VBG pH (7.31-7.41) 7.44 H VBG pCO2 (41-51) mmHg 55 H VBG pO2 mmHg 35 VBG HCO3 (23-28) mmol/L 37 H VBG Total CO2 (24-29) mmol/L 34 H VBG O2 Saturation % 71 VBG Base Excess (-2-3) mmol/L 13 H VBG Lactate (0.6-1.4) mmol/L 2.6 H* Sodium (136-145) mmol/L 135 L Potassium (3.5-5.1) mmol/L 2.8 L* Chloride (98-107) mmol/L 92 L Carbon Dioxide (21.0-32.0) mmol/L 36.5 H Anion Gap (3-11) mmol/L 6.5 BUN (7-18) mg/dL 15 Creatinine (0.70-1.30) mg/dL 1.0 Est GFR (CKD-EPI 2020) (mL/min/1.73m2) 85.63 Glucose (74-106) mg/dL 144 H Calcium (8.5-10.1) mg/dL 8.6 Total Bilirubin (0.2-1.0) mg/dL 0.3 AST (15-37) U/L 24 ALT (16-63) U/L 54 Alkaline Phosphatase (46-116) U/L 120 H Total Protein (6.4-8.2) g/dL 7.3 Albumin (3.4-5.0) g/dL 3.5 Medical Decision Making Emergent evaluation of positive blood culture. I reviewed the medical record and reviewed his recent emergency department visits. The patient had full workup including a CTA of his chest. There is no evidence of a consolidation in his chest. He was not in acute respiratory failure requiring oxygen. He had no significant elevation of his white blood cell count. His lactic acid was not elevated. The culture is 1 of 2 bottles and is gram-positive cocci. I have a suspicion that this is likely a contaminant. As the patient has no focal findings of infection or clear sick symptoms. His lab work today so good to me and cultures were repeated today. He is noted to have an increase in his white blood cell count. This could be from the steroids he received yesterday for COPD exacerbation though his does have an increase in left shift as well. His lactic acid is elevated today. This will need trending. His potassium has decreased further at 2.8 and has been repleted with IV and oral administration. Renal function is stable. Patient has not yet provided urine sample. I repeated the chest x-ray as well today and do not see any focal changes of concern. Broad-spectrum antibiotics have been initiated pending culture results and the patient will be admitted to the hospital for further evaluation. Medical Records Medical records reviewed: Yes I reviewed the patient's medical records. Lab Data Lab results reviewed: Yes I reviewed the patient's lab results. Quality:SDOH Health Related Social Needs: No Data to Display PFSH All Active Problems Elevated lactic acid level (Acute) Leukocytosis (Acute) Blood bacterial culture positive (Acute) Acute exacerbation of chronic bronchitis (Acute) Compression fx, lumbar spine (Acute) Lumbago with sciatica, right side (Acute) Chronic edema (Acute) Complex psychiatric condition (Acute) Contusion (Acute) Rib pain (Acute) Leg swelling (Acute) Hypomagnesemia (Acute) Hypokalemia (Acute) Nicotine dependence, cigarettes, uncomplicated (Acute) Emphysema lung (Acute) Pulmonary hypertension (Acute) Hoarseness (Acute) Leukoplakia of larynx (Acute) Interstitial lung disease (Acute) Fibromyalgia (Acute) Depressive disorder (Chronic) Chronic pain (Chronic) Bipolar disorder (Acute) 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 Anasarca (Acute) Acute asthma (Acute) Xerostomia (Acute) Oral leukoplakia (Acute) Tobacco abuse (Acute) Chronic laryngitis (Acute) Nail dystrophy (Acute) Pain, foot (Acute) Corns and callosities (Acute) Bipolar 1 disorder (Acute) Anemia (Chronic) Acquired talipes planus (Acute) Hallux varus (acquired) (Acute) Asthma (Chronic) IGT (impaired glucose tolerance) (Acute) Peripheral neuropathy (Acute) Benign prostatic hyperplasia with hesitancy (Acute) Cortical cataract of left eye (Acute) Hypogonadism in male (Acute) Spermatocele of epididymis, multiple (Acute) Medical History Tinea cruris Spermatocele Seizure disorder Pt. states he had 1 seizure 13 years ago from a medication. But states he has not had one since. Restless legs Psychophysiologic insomnia Pain of left shoulder joint on movement Pain of left hip joint Pain in right knee Onycholysis Obstructive sleep apnea Migraine Spondylolisthesis, lumbar region Left atrial enlargement Injury of shoulder and upper arm Idiopathic peripheral neuropathy Herpesviral vesicular dermatitis Hx of fracture of vertebral column Fibromyositis Fatigue Disorder of upper respiratory system Degeneration of lumbar intervertebral disc Degeneration of cervical intervertebral disc Decreased testosterone level Closed fracture of proximal end of humerus Closed fracture of lumbar vertebra Claustrophobia Cervicogenic headache Bilateral knee pain 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 Acute hyponatremia Allergic rhinitis History of hypothyroidism History of back injury Sleep apnea Lumbar disc disease Cervical disc disease Depression Neuropathy Hypertension Seizure Hyperlipidemia GERD (gastroesophageal reflux disease) Surgical History H/O sinus surgery H/O nasal septoplasty Hx of cataract surgery Hx of shoulder surgery left History of back surgery History of orthopedic surgery finger mass Hx of tonsillectomy Hx of arthroscopy of knee H/O eye surgery foreign body removal H/O carpal tunnel repair H/O hernia repair Family History Mother Diabetes Heart disease Hypertension Father Hypertension Social History Smoking/Tobacco Use Status: Current every day Tobacco Type: cigarettes Tobacco: How many years used: 40 Smoking risk assessment performed?: Yes Alcohol Intake: never Drug use: Never Substance use type: does not use Housing: apartment Do you feel safe at home: Yes Do you feel safe in your relationship?: Yes Additional Social history: unable to assess privately
[2024-01-04] MEDS: POTASSIUM CHLORIDE 10 MEQ/100 ML BAG 100 MEQ IVINF (16:05)
[2024-01-04] MEDS: Potassium Chloride Liquid 20 MEQ PKT 40 MEQ PO (16:07)
[2024-01-04 16:33] LABS: Bilirubin Negative (Negative); Blood Negative (Negative); Clarity Clear (Clear); Glucose Negative (Negative); Ketones Negative (Negative); Leukocyte Esterase Negative (Negative); Nitrite Negative (Negative); Specific Gravity <= 1.005 (1.005-1.025); Urobilinogen 0.2 mg/dL (Up to 0.2); pH 5.5 (5-8)
[2024-01-04] MEDS: Albuterol 2.5 MG/3 ML INH SOLN VIAL UPD (17:22)
[2024-01-04] MEDS: Normal Saline Flush 10 ML SYR IVP ×2 (17:52→19:27)
[2024-01-04] MEDS: Acetaminophen 500 MG TAB PO (17:58)
[2024-01-04 18:13] LABS: COVID-19 PCR Negative (Negative); Influenza A PCR Negative (Negative); Influenza B PCR Negative (Negative); RSV PCR Negative (Negative); Source Nasopharynx
[2024-01-04] MEDS: Methocarbamol 750 MG TAB PO (18:34)
[2024-01-04] MEDS: POTASSIUM CHLORIDE/0.9% NACL 1,000 ML 150 MEQ IV (18:46)
[2024-01-04] MEDS: Tamsulosin 0.4 MG CAPCR PO (19:23)
[2024-01-04] MEDS: Famotidine 20 MG TAB 40 MG PO (19:23)
[2024-01-04] MEDS: Pramipexole 0.5 MG TAB 1 MG PO (19:24)
[2024-01-04] MEDS: Lidocaine 5% Patch 1 PATCH TP (19:31)
[2024-01-04] MEDS: Nicotine 21 MG/24 HR PATCH TD (19:31)
--- NOTE | 2024-01-04 20:52 | RESPIRATORY ---
RT spoke with patient for ELIECER diagnosis. Pt. states that he does have a BiPAP machine which he has not been using due to some part broken. RT encouraged to use hospital's BiPAP machine but he denied to use, states he's been sleeping comfortably without it and will not be getting any benefit from it per pt.
[2024-01-04] MEDS: OLANZapine 10 MG TAB PO (21:19)
[2024-01-05] MEDS: POTASSIUM CHLORIDE/0.9% NACL 1,000 ML 150 MEQ IV (00:41)
[2024-01-05] MEDS: VANCOMYCIN 1,500 MG in Normal Saline 250 ML 166.667 MG IVPB (04:13)
[2024-01-05 06:15] VITALS: O2SAT 86
[2024-01-05 06:24] VITALS: BP 114/73; PULSE 89; RESP 16; O2SAT 93
[2024-01-05 06:24] LABS: Abs Immature Grans 0.07 10^3/uL (0.0-0.06); Absolute Basophil Count 0.09 10^3/uL (0.0-0.2); Absolute Eosinophil Count 0.29 10^3/uL (0.0-0.7); Absolute Monocyte Count 0.77 10^3/uL (0.1-0.8); Basophils % 0.8 %; Eosinophils % 2.5 %; HCT 37.9 % (40.0-50.0); HGB 11.8 g/dL (13.5-17.5); Immature Grans % 0.6 %; Lymphocytes % 32.6 %; MCH 28.4 pg (27.0-33.0); MCHC 31.1 % (32.0-36.0); MCV 91 fL (80-95); MPV 8.9 fL (8.0-11.0); Monocytes % 6.6 %; Neutrophils % 56.9 %; Platelet Count 402 10^3/uL (130-400); RBC 4.15 10^6/uL (4.36-5.78); RDW 16.9 % (11.8-14.1); RDW-SD 57.1 fL; WBC 11.67 10^3/uL (4.4-10.8)
[2024-01-05 06:27] LABS: Absolute Neutrophil Count 6.64 10^3/uL (1.2-6.7)
[2024-01-05 06:38] LABS: Anion Gap 5.1 mmol/L (3-11); BUN 17 mg/dL (7-18); CO2 33.9 mmol/L (21.0-32.0); CREATININE 0.9 mg/dL (0.70-1.30); Calcium 8.4 mg/dL (8.5-10.1); Chloride 101 mmol/L (98-107); Estimated GFR 97.17 (mL/min/1.73m2); Glucose 121 mg/dL (74-106); Potassium 3.4 mmol/L (3.5-5.1); Sodium 140 mmol/L (136-145)
[2024-01-05 07:46] VITALS: BP 121/90; PULSE 98; RESP 20; TEMP 36.1; O2SAT 97
[2024-01-05] MEDS: Pramipexole 0.5 MG TAB 1 MG PO (08:04)
[2024-01-05] MEDS: Furosemide 40 MG TAB PO (08:04)
[2024-01-05] MEDS: Magnesium Lactate-SR 84 MG TABCR PO (08:04)
[2024-01-05] MEDS: predniSONE 20 MG TAB 40 MG PO (08:04)
[2024-01-05] MEDS: Acetaminophen 500 MG TAB PO (08:04)
[2024-01-05] MEDS: Tamsulosin 0.4 MG CAPCR PO (08:04)
[2024-01-05] MEDS: Levothyroxine 88 MCG TAB PO (08:05)
[2024-01-05] MEDS: Normal Saline Flush 10 ML SYR IVP (08:05)
[2024-01-05] MEDS: Omeprazole 20 MG CAPCR 40 MG PO (08:05)
[2024-01-05] MEDS: Lidocaine Patch Removal 1 EACH TP (08:06)
--- NOTE | 2024-01-05 09:15 | PDOC.CMIN ---
Date of service: 01/05/24 Time of Service: 09:16 Care Management Initial Assmt Initial Assessment Reason for Hospitalization: Bacteremia Functional Status/Living Situation Town of Residence: [facility] Supports: [place] Advance Directives Advance Directives: Do you have an Advance Directive: Y 10/22/23 14:33 AD On File at [facility]: Y 10/22/23 14:33 Date Asked 11/05/23 11/05/23 15:02 AD Date Reviewed 01/03/24 01/03/24 11:26 COLST On File at [facility] COLST Date Scanned Code Status Resuscitation Status Full Code Insurance Coverage/Financial Issues Insurance: [id number] Medicaid ACO Member: No Care Team Visit Care Team Role Provider Type Dg Nicole Primary Care Provider [facility] STAFF PHYSICIAN Leigh Campos MD Other Providers [facility] STAFF PHYSICIAN Woody Alfredo MD Emergency Provider [facility] STAFF PHYSICIAN Chico Pretty MD Admit Provider [facility] STAFF PHYSICIAN Attending Provider Discharge Potential Discharge Needs: Consult and Imaging/labs Patient/Family Education Needs: Other Plan: Shailesh will likely be discharged home when medically cleared, with no new services. He will follow up with his community providers and plan of care and transport with family. will continue to support Shailesh and assess for discharge planning concerns. PFSH All Active Problems (Updated 01/05/24 @ 00:08 by CY GUTIERREZ) Sinusitis, acute (Acute) Obstructive sleep apnea (Chronic) Elevated lactic acid level (Acute) Leukocytosis (Acute) Blood bacterial culture positive (Acute) Acute exacerbation of chronic bronchitis (Acute) Compression fx, lumbar spine (Acute) Lumbago with sciatica, right side (Acute) Chronic edema (Acute) Complex psychiatric condition (Acute) Contusion (Acute) Rib pain (Acute) Leg swelling (Acute) Hypokalemia (Acute) Nicotine dependence, cigarettes, uncomplicated (Acute) Emphysema lung (Acute) Pulmonary hypertension (Acute) Hoarseness (Acute) Leukoplakia of larynx (Acute) Interstitial lung disease (Chronic) Fibromyalgia (Acute) Depressive disorder (Chronic) Chronic pain (Chronic) Bipolar disorder (Acute) 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 Anasarca (Acute) Acute asthma (Acute) Xerostomia (Acute) Oral leukoplakia (Acute) Tobacco abuse (Acute) Chronic laryngitis (Acute) Nail dystrophy (Acute) Pain, foot (Acute) Corns and callosities (Acute) Bipolar 1 disorder (Acute) Anemia (Chronic) Acquired talipes planus (Acute) Hallux varus (acquired) (Acute) Asthma (Chronic) IGT (impaired glucose tolerance) (Acute) Peripheral neuropathy (Acute) Benign prostatic hyperplasia with hesitancy (Acute) Cortical cataract of left eye (Acute) Hypogonadism in male (Acute) Spermatocele of epididymis, multiple (Acute) Medical History Tinea cruris Spermatocele Seizure disorder Pt. states he had 1 seizure 13 years ago from a medication. But states he has not had one since. Restless legs Psychophysiologic insomnia Pain of left shoulder joint on movement Pain of left hip joint Pain in right knee Onycholysis Obstructive sleep apnea Migraine Spondylolisthesis, lumbar region Left atrial enlargement Injury of shoulder and upper arm Idiopathic peripheral neuropathy Herpesviral vesicular dermatitis Hx of fracture of vertebral column Fibromyositis Fatigue Disorder of upper respiratory system Degeneration of lumbar intervertebral disc Degeneration of cervical intervertebral disc Decreased testosterone level Closed fracture of proximal end of humerus Closed fracture of lumbar vertebra Claustrophobia Cervicogenic headache Bilateral knee pain 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 Acute hyponatremia Allergic rhinitis History of hypothyroidism History of back injury Sleep apnea Lumbar disc disease Cervical disc disease Depression Neuropathy Hypertension Seizure Hyperlipidemia GERD (gastroesophageal reflux disease) Surgical History H/O sinus surgery H/O nasal septoplasty Hx of cataract surgery Hx of shoulder surgery left History of back surgery History of orthopedic surgery finger mass Hx of tonsillectomy Hx of arthroscopy of knee H/O eye surgery foreign body removal H/O carpal tunnel repair H/O hernia repair Family History Mother Diabetes Heart disease Hypertension Father Hypertension Social History Smoking/Tobacco Use Status: Current every day Tobacco Type: cigarettes Tobacco: How many years used: 40 Smoking risk assessment performed?: Yes Alcohol Intake: never Drug use: Never Substance use type: does not use Housing: apartment Do you feel safe at home: Yes Do you feel safe in your relationship?: Yes Additional Social history: unable to assess privately SDOH(Care Management) Screening Will the Patient Participate in the Screening?: Yes Do you worry about having a steady place to live?: no Problems where you live: no known problems In the past 12 months, have you had to go without electric, gas, oil or water in your home?: no Have you or anyone in your house had to go without enough food to eat?: yes Has lack of transportation kept you from medical appointments or from doing things needed for daily living?: yes Has anyone in your support network made you feel unsafe for any reason?: no Health Related Social Needs Health related social needs: food insecurity(Z59.41) and transportation insecurity(Z59.82)
--- NOTE | 2024-01-05 09:31 | NUR.NOTE ---
On 01/05/24 at 0930MA Deandra went to check on pt and as soon as I walked in a asked the pt how he was doing he started screaming at me. pt stated what does it look like im fucking doing? I need the nurse, im having an anxiety attack. i then noticed that the pt did not have his O2 in his nose, so I stated it might help with your anxiety if you put your O2 back in your nose.'' pt the stated 'dont you fucking worry abiut me im going to do it dennis nayak Note:
--- NOTE | 2024-01-05 09:42 | NUR.NOTE ---
On 01/05/24 at 0930MA Deandra went to check on pt and as soon as I walked in a asked the pt how he was doing he started screaming at me. pt stated what does it look like im fucking doing? I need the nurse, im having an anxiety attack. i then noticed that the pt did not have his O2 in his nose, so I stated it might help with your anxiety if you put your O2 back in your nose.'' pt the stated dont you oscar worry about me i'm going to do it my way just get the fucking nurse I then told the pt that I had come in to ask him if he anted to wash up pt then stated no I don't want to do that just get the heide out RN Dai and CATHIE Chin notified Nursing Note:
--- NOTE | 2024-01-05 11:47 | PDOC.CMPRO ---
Date of service: 01/05/24 Time of Service: 11:47 Care Management Progress Note Progress Note Text Progress Note Text: Jose left the hospital against medical advice before CM was able to meet with him. SDOH(Care Management) Screening Will the Patient Participate in the Screening?: Yes Do you worry about having a steady place to live?: no Problems where you live: no known problems In the past 12 months, have you had to go without electric, gas, oil or water in your home?: no Have you or anyone in your house had to go without enough food to eat?: yes Has lack of transportation kept you from medical appointments or from doing things needed for daily living?: yes Has anyone in your support network made you feel unsafe for any reason?: no Health Related Social Needs Health related social needs: food insecurity(Z59.41) and transportation insecurity(Z59.82)
== END 2024-01-05 10:25 | disposition left against medical advice (07) | DRG 872 ==
LOC: ER 16:13 → MS 16:33
PROVIDERS: Family Medicine; Nurse Practitioner Acute Care; Admitting Provider Family Medicine; Emergency Provider Emergency Medicine; PCP Family Medicine; Visit Provider Family Medicine
DX: R78.81 Bacteremia (principal); E87.20 Acidosis, unspecified; J44.1 Chronic obstructive pulmonary disease with (acute) exacerbation; J01.90 Acute sinusitis, unspecified; D72.829 Elevated white blood cell count, unspecified; F17.210 Nicotine dependence, cigarettes, uncomplicated; G47.33 Obstructive sleep apnea (adult) (pediatric); F31.9 Bipolar disorder, unspecified; J84.10 Pulmonary fibrosis, unspecified; M54.41 Lumbago with sciatica, right side; R60.0 Localized edema; E87.6 Hypokalemia; M79.7 Fibromyalgia; I27.20 Pulmonary hypertension, unspecified; D64.9 Anemia, unspecified; G62.9 Polyneuropathy, unspecified; I10 Essential (primary) hypertension; E78.5 Hyperlipidemia, unspecified; R73.02 Impaired glucose tolerance (oral); E66.01 Morbid (severe) obesity due to excess calories; Z68.35 Body mass index [BMI] 35.0-35.9, adult
CPT/HCPCS: 00123; 36410; 80048; 80053; 82805; 87040; 87637; 96365; 99285; 71045; 81003; 83605; 85025; 87086; 94640; 94667; 94760; 99223; J2543; J3370; J3372; J3480; J3490; J7512; J7613

== ENCOUNTER 2024-01-07 16:49 | Emergency (ER) | payer OTHER, MEDICAID, SELFPAY ==
[2024-01-07 16:55] VITALS: BP 141/79; PULSE 116; RESP 26; TEMP 36.3; O2SAT 96
[2024-01-07 17:25] VITALS: BP 130/61; PULSE 115; RESP 25; O2SAT 95
[2024-01-07 17:39] LABS: Abs Immature Grans 0.38 10^3/uL (0.0-0.06); Absolute Basophil Count 0.07 10^3/uL (0.0-0.2); Basophils % 0.4 %; Eosinophils % 0.4 %; HCT 38.3 % (40.0-50.0); Immature Grans % 2.2 %; Lymphocytes % 16.6 %; MCH 28.5 pg (27.0-33.0); MCHC 31.3 % (32.0-36.0); MCV 91 fL (80-95); Monocytes % 8.4 %; Platelet Count 410 10^3/uL (130-400); RBC 4.21 10^6/uL (4.36-5.78); RDW 17.1 % (11.8-14.1); RDW-SD 57.1 fL; WBC 17.09 10^3/uL (4.4-10.8)
[2024-01-07] MEDS: Normal Saline 500 ML IV (17:39)
[2024-01-07 17:41] LABS: Absolute Eosinophil Count 0.07 10^3/uL (0.0-0.7); Absolute Lymphocyte Count 2.84 10^3/uL (1.2-3.4); Absolute Monocyte Count 1.44 10^3/uL (0.1-0.8)
[2024-01-07 17:42] VITALS: BP 153/68; PULSE 117; RESP 19; O2SAT 93
--- NOTE | 2024-01-07 17:45 | RT.EKG_ITS ---
APPROVED REPORT Exam: Resting ECG Reason for Exam: Tachycardia Patient Location: E HR:93 bpm ECG Measurements Heart Rate 93 AXIS CA 183 P 54 QRSd 80 QRS -16 QT 342 T 55 QTc 426 Conclusion Sinus rhythm...normal P axis, V-rate 60- 99 Probable left atrial enlargement...P >50mS, <-0.10mV V1 Consider anteroseptal infarct...Q >30mS, dimin R, V1-V2 Narrow complex normal sinus rhythm at a rate of 93. Left axis deviated. No signs of LVH based on vo ltage. T wave flattening in V2. Intervals within normal limits. No ST segment abnormalities. No a cute injury pattern. Compared to prior dated earlier this week T wave is more flattened in V2.
[2024-01-07 17:49] LABS: Anion Gap 8.9 mmol/L (3-11); BUN 14 mg/dL (7-18); CO2 31.1 mmol/L (21.0-32.0); CREATININE 0.8 mg/dL (0.70-1.30); Calcium 8.5 mg/dL (8.5-10.1); Chloride 96 mmol/L (98-107); Estimated GFR 100.69 (mL/min/1.73m2); Glucose 172 mg/dL (74-106); Potassium 3.4 mmol/L (3.5-5.1); Sodium 136 mmol/L (136-145)
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
[2024-01-07 18:26] VITALS: PULSE 93
[2024-01-07 18:35] LABS: NT-proBNP 129 pg/mL (<300); Troponin I < 50 ng/L (< or =60)
[2024-01-07] MEDS: hydrOXYzine HCL 25 MG TAB PO (18:53)
== END 2024-01-07 18:57 | disposition home or self-care (01) ==
PROVIDERS: Emergency Provider Emergency Medicine; PCP Family Medicine
DX: R07.81 Pleurodynia (principal); D75.839 Thrombocytosis, unspecified; D64.9 Anemia, unspecified; J44.9 Chronic obstructive pulmonary disease, unspecified; J84.9 Interstitial pulmonary disease, unspecified; I27.20 Pulmonary hypertension, unspecified; G40.909 Epilepsy, unspecified, not intractable, without status epilepticus; E78.5 Hyperlipidemia, unspecified; I11.0 Hypertensive heart disease with heart failure; Z79.899 Other long term (current) drug therapy
CPT/HCPCS: 36415; 80048; 93005; 96360; 99285; 71046; 81003; 83880; 84484; 85025; 93010; 99284

== ENCOUNTER → 2024-01-13 12:57 | Outpatient (BNVA) | payer OTHER, MEDICAID, SELFPAY | PROVIDERS: PCP Family Medicine; Referring Provider Family Medicine; Visit Provider Student in an Organized Health Care Education/Training Program ==

== ENCOUNTER → 2024-01-21 01:13 | Outpatient (CLI) | payer OTHER, MEDICAID, SELFPAY ==
--- NOTE | 2024-01-21 07:15 | DI.RAD_ITS ---
Exam(s) XR FOOT LT COMPLETE EXAM: XR FOOT LT COMPLETE CLINICAL HISTORY: fracture toe 5th, fracture phalanx lesser toe lt foot, S92.502A. TECHNIQUE: 2D digital imaging was performed of the left foot. Three images were obtained. AP, obli que and lateral views were obtained. COMPARISON: No exams were available for comparison FINDINGS: BONES: There is a nondisplaced fracture through the proximal metadiaphyseal junction of the proximal phalanx of the left 5th toe. There is callus formation of the fracture suggesting a subacute fractur e. No other fractures identified. No bony destructive lesion is seen. JOINTS: No dislocation present. The joint spaces are well maintained apart from mild joint space narr owing at the 1st MTP joint. SOFT TISSUE: Soft tissue swelling of the 5th toe is noted. IMPRESSION: Subacute fracture involving the proximal phalanx of the 5th toe. DATA REPOSITORY: RADIATION DOSE DELIVERED:
== END ==
PROVIDERS: PCP Family Medicine; Visit Provider Podiatrist
DX: S92.512D Displaced fracture of proximal phalanx of left lesser toe(s), subsequent encounter for fracture with routine healing (principal); X58.XXXD Exposure to other specified factors, subsequent encounter
CPT/HCPCS: 73630

== ENCOUNTER → 2024-01-22 08:06 | Outpatient (BNVA) | payer OTHER, MEDICAID, SELFPAY | PROVIDERS: PCP Family Medicine; Referring Provider Family Medicine; Visit Provider Podiatrist | DX: S92.512A Displaced fracture of proximal phalanx of left lesser toe(s), initial encounter for closed fracture; I70.203 Unspecified atherosclerosis of native arteries of extremities, bilateral legs; I89.0 Lymphedema, not elsewhere classified; B35.1 Tinea unguium; G62.9 Polyneuropathy, unspecified; M54.50 Low back pain, unspecified; W22.09XA Striking against other stationary object, initial encounter; R25.2 Cramp and spasm | CPT/HCPCS: 99214 ==

== ENCOUNTER 2024-02-04 09:46 | Emergency (ER) | payer OTHER, MEDICAID, SELFPAY ==
[2024-02-04 09:41] VITALS: BP 115/60; PULSE 99; RESP 12; TEMP 36.2; O2SAT 98
--- NOTE | 2024-02-04 09:45 | DI.RAD_ITS ---
Exam(s) XR CERVICAL SPINE COMP 4-5V EXAM: XR CERVICAL SPINE COMP 4-5V CLINICAL HISTORY: fall yesterday, acute on chronic neck back pain. TECHNIQUE: 2D digital imaging was performed. Five views were performed. COMPARISON: CT CT NECK W from 12/25/2023 CR XR CHEST 2V PA LATERAL from 01/07/2024 FINDINGS: BONES: No fracture or destructive lesion. Vertebral bodies are unremarkable. There is hardware in the left humeral head which overlies the spine on the lateral view. DISKS: Severe narrowing of the anterior C5-6 disc space with prominent endplate osteophytes. Severe narrowing of the C6-7 disc space with prominent endplate osteophytes. Intervertebral mild disc space narrowing at C4-5. Bilateral neural foraminal narrowing. ALIGNMENT: There is reversal of the normal cervical lordosis, stable from priors. The odontoid and a tlantoaxial articulations shows degenerative changes.. SOFT TISSUE: Unremarkable. IMPRESSION: Degenerative changes. No acute abnormality. DATA REPOSITORY: RADIATION DOSE DELIVERED:
--- NOTE | 2024-02-04 09:45 | DI.RAD_ITS ---
Exam(s) XR HIP PELVIS ADULT BL EXAM: XR HIP PELVIS ADULT BL CLINICAL HISTORY: bilateral hip pain. TECHNIQUE: 2D digital imaging was performed. Five views. COMPARISON: No exams were available for comparison FINDINGS: Exam limited by overlying clothing. BONES: No acute fracture is present. No bony destructive lesion is seen. Posterior fusion hardware at L5-S1. JOINTS: No dislocation present. SI joints and pubic symphysis are unremarkable. Joint spaces are m aintained. Mild acetabular spurring. SOFT TISSUE: Normal. IMPRESSION: Unremarkable radiographs of the bilateral hips. DATA REPOSITORY: RADIATION DOSE DELIVERED:
--- NOTE | 2024-02-04 09:45 | DI.RAD_ITS ---
Exam(s) XR LUMBAR SPINE COMPLETE EXAM: XR LUMBAR SPINE COMPLETE CLINICAL HISTORY: fall yesterday, acute on chronic neck back pain. TECHNIQUE: 2D digital imaging was performed. Five views. COMPARISON: CT CT THORACIC LUMBAR SPINE REC from 12/25/[address] CHEST PE CTA from 01/03/2024 FINDINGS: Posterior fusion hardware again noted at L5-S1. Disc spacer in place. Alignment unchanged. Stable mild spondylolisthesis at. Disc spaces are maintained. Stable mild depressions in the superior endp lates of L1, L3 and L4. Aorta is calcified. IMPRESSION: Stable appearance of lumbar spine. DATA REPOSITORY: RADIATION DOSE DELIVERED:
--- NOTE | 2024-02-04 09:47 | ED.GENADUL_ITS ---
Discharge Plan Disposition Patient Disposition: Home Condition: Stable Discharge Details Clinical Impression: Chronic pain, Hypomagnesemia Primary Care Provider: Dg Nicole ED Provider: Enrico Ch Home Meds and New Rx's Prescriptions: Continued levothyroxine 88 mcg capsule 88 mcg PO DAILY atorvastatin 40 mg tablet 40 mg PO DAILY famotidine 40 mg tablet 40 mg PO QHS methocarbamol 750 mg tablet 750 mg PO Q4H PRN tamsulosin [Flomax] 0.4 mg capsule 0.4 mg PO BID Qty: 180 1RF Hold Instructions: Pt Stopped/Never Started Patient Comments: Pt states he is not taking torsemide 20 mg tablet 160 mg PO DIRECTED Patient Comments: unsure if taking as pt says 'it doesn't work' Rx Instructions: 4tabs in am 4 tabs in hs ketoconazole 2 % cream 1 applic topical DAILY Qty: 120 6RF Rx Instructions: Apply to toenails once daily albuterol sulfate 5 mg/mL solution for nebulization 2.5 mg inhalation Q6H PRN fluticasone propionate [Allergy Relief (fluticasone)] 50 mcg/actuation spray,suspension 1 spray intranasal DAILY Rx Instructions: administer into each nostril ipratropium bromide 21 mcg (0.03 %) spray,non-aerosol 2 spray intranasal TID Rx Instructions: administer into each nostril omeprazole 40 mg capsule,delayed release(DR/EC) 40 mg PO DAILY acetaminophen 500 mg tablet 500 mg PO Q6H PRN Anoro Ellipta 62.5-25 mcg/actuation blister with device 1 inh inhalation DAILY Qty: 60 6RF ibuprofen 600 mg tablet 600 mg PO QID PRN Patient Comments: TAKE ONE TABLET BY MOUTH FOUR TIMES A DAY NEEDED FOR 30 DAYS WITH FOOD albuterol sulfate 90 mcg/actuation HFA aerosol inhaler 2 puff INHALATION Q3-5H Patient Comments: INHALE TWO PUFFS BY MOUTH EVERY 3 HOURS NEEDED FOR 90 DAYS lidocaine 5 % adhesive patch,medicated 1 patch topical DAILY Qty: 30 0RF Rx Instructions: leave on most painful area for up to 12 hrs furosemide 40 mg tablet 40 mg PO BID Qty: 14 0RF Hold Instructions: Pt Stopped/Never Started Patient Comments: not working per pt, unsure if pt is still taking potassium chloride 20 mEq packet 20 meq PO DAILY Qty: 30 0RF magnesium L-lactate 84 mg tablet extended release 84 mg PO DAILY Qty: 10 0RF Hold Instructions: Pt Stopped/Never Started lidocaine [Lidoderm] 5 % adhesive patch,medicated 1 patch topical DAILY Qty: 15 0RF Rx Instructions: leave on most painful area for up to 12 hrs methocarbamol 500 mg tablet 500 mg PO TID Qty: 5 0RF methocarbamol 500 mg tablet 500 mg PO TID Qty: 5 0RF lidocaine [Lidoderm] 5 % adhesive patch,medicated 1 patch topical DAILY Qty: 15 0RF Rx Instructions: leave on most painful area for up to 12 hrs Discharge Instructions Instructions: Chronic pain, Hypomagnesemia Additional Instructions: You were seen in the emergency department for your chronic pain syndrome with a minor fall the other day. There is no acute fractures to your back or hips. You have a history of chronic pain syndrome and I am referring you to the pain clinic here to see you as a patient. Incidentally you were found to have a low magnesium and you state you have magnesium supplements at home. We did replete your magnesium with IV magnesium, your labs are negative for any signs of severe infection, you have noted emphysema but are at your baseline for oxygen requirement, your potassium and sodium are normal today, your cardiac workup is negative. Please follow-up with pain care for your chronic pain syndrome, do not hesitate to return to the emergency department for any acute emergencies including chest pain, shortness of breath, severe abdominal pain, neurological changes, acute trauma. Referrals: [facility] [Provider Group] Dg Nicole [Primary Care Provider] - Discharge Data Discharge Date/Time-TO BE ENTERED AT DEPARTURE: 02/04/24 12:31 HPI General Date/Time Provider Initiated Documentation: 02/04/24 09:47 . HPI Narrative: 63 year-old male presents to ED today by EMS with a chief complaint of chronic pain issues and anxiety, states his anxiety has been going wild lately- he thought he felt a bench at home, and went to sit down and it wasn't there with a minor fall to his lower back/tailbone days ago, now having hip and low back pain that he states is exacerbating his hardware from prior lumbar fusion with onset chronically. Frequently presents by EMS for chronic back pain. Quality described as acute on chronic diffuse back and hip pain, no radiation to numbness/tin gling, inability to ambulate, urinary retention, bowel incontinence, fever- patient denies shortness of breath- is at his baseline O2 use of 2L upon arrival. Severity is described as 06/06. Palliating factors include nothing specific attempted. Provoking factors include nothing specific. Patient not anticoagulated. Related Data Home Medications Medication Instructions Recorded Confirmed levothyroxine 88 mcg capsule 88 mcg PO DAILY 04/18/20 02/04/24 albuterol sulfate 90 mcg/actuation 2 puff inhalation Q3-5H 04/27/21 02/04/24 aerosol inhaler ibuprofen 600 mg tablet 600 mg PO QID PRN 04/27/21 02/04/24 atorvastatin 40 mg tablet 40 mg PO DAILY 10/04/22 02/04/24 famotidine 40 mg tablet 40 mg PO QHS 10/04/22 02/04/24 methocarbamol 750 mg tablet 750 mg PO Q4H PRN 10/04/22 02/04/24 acetaminophen 500 mg tablet 500 mg PO Q6H PRN 06/27/23 02/04/24 albuterol sulfate 5 mg/mL(0.5 %) 2.5 mg inhalation Q6H PRN 06/27/23 02/04/24 solution for nebulization fluticasone propionate 50 1 spray intranasal DAILY 06/27/23 02/04/24 mcg/actuation nasal spray,suspension (Allergy Relief (fluticasone)) ipratropium bromide 21 mcg (0.03 2 spray intranasal TID 06/27/23 02/04/24 %) nasal spray omeprazole 40 mg capsule,delayed 40 mg PO DAILY 06/27/23 02/04/24 release umeclidinium 62.5 mcg-vilanterol 1 inh inhalation DAILY #60 ea 09/08/23 02/04/24 25 mcg/actuation powdr for inhalation (Anoro Ellipta) lidocaine 5 % topical patch 1 patch topical DAILY #30 ea 12/01/23 02/04/24 furosemide 40 mg tablet 40 mg PO BID #14 tabs 12/05/23 02/04/24 magnesium L-lactate 84 mg 84 mg PO DAILY #10 tabs 12/05/23 02/04/24 tablet,extended release potassium chloride 20 mEq oral 20 meq PO DAILY #30 ea 12/05/23 02/04/24 packet tamsulosin 0.4 mg capsule (Flomax) 0.4 mg PO BID #180 caps 12/10/23 02/04/24 torsemide 20 mg tablet 160 mg PO DIRECTED 12/30/23 02/04/24 lidocaine 5 % topical patch 1 patch topical DAILY #15 ea 01/07/24 02/04/24 (Lidoderm) lidocaine 5 % topical patch 1 patch topical DAILY #15 ea 01/07/24 02/04/24 (Lidoderm) methocarbamol 500 mg tablet 500 mg PO TID #5 tabs 01/07/24 02/04/24 methocarbamol 500 mg tablet 500 mg PO TID #5 tabs 01/07/24 02/04/24 ketoconazole 2 % topical cream 1 applic topical DAILY #120 grams 01/22/24 Previous Rx's Medication Instructions Recorded umeclidinium 62.5 mcg-vilanterol 1 inh inhalation DAILY #60 ea 09/08/23 25 mcg/actuation powdr for inhalation (Anoro Ellipta) lidocaine 5 % topical patch 1 patch topical DAILY #30 ea 12/01/23 furosemide 40 mg tablet 40 mg PO BID #14 tabs 12/05/23 magnesium L-lactate 84 mg 84 mg PO DAILY #10 tabs 12/05/23 tablet,extended release potassium chloride 20 mEq oral 20 meq PO DAILY #30 ea 12/05/23 packet tamsulosin 0.4 mg capsule (Flomax) 0.4 mg PO BID #180 caps 12/10/23 lidocaine 5 % topical patch 1 patch topical DAILY #15 ea 01/07/24 (Lidoderm) lidocaine 5 % topical patch 1 patch topical DAILY #15 ea 01/07/24 (Lidoderm) methocarbamol 500 mg tablet 500 mg PO TID #5 tabs 01/07/24 methocarbamol 500 mg tablet 500 mg PO TID #5 tabs 01/07/24 ketoconazole 2 % topical cream 1 applic topical DAILY #120 grams 01/22/24 Allergies Allergy/AdvReac Type Severity Reaction Status Date / Time quetiapine Allergy Unknown OTHER Verified 02/04/24 10:26 codeine Allergy itching Verified 02/04/24 10:26 cyclobenzaprine Allergy seizure Verified 02/04/24 10:26 [From Flexeril] lamotrigine AdvReac Intermediate sleep Verified 02/04/24 10:26 walking aspirin AdvReac stomach Verified 02/04/24 10:26 concerns risperidone [From Risperdal] AdvReac N&V Verified 02/04/24 10:26 rofecoxib [From Vioxx] AdvReac palpitation Verified 02/04/24 10:26 s General Stated Complaint: Orthopedic ALEX: 3 Review of Systems All systems reviewed & are unremarkable except as noted in HPI and below Exam Narrative Exam Narrative: GENERAL APPEARANCE: Well-nourished, non-toxic, awake and alert, atraumatic, no acute distress. SKIN: Warm, pink, dry, intact, without rashes/lesions/ulcerations. HEAD: Normocephalic, atraumatic, normal hair distribution for gender/age. EYES: Pupils PERRLA, EOMs intact without nystagmus, normal conjunctiva, no exuda gloria on lids/lashes. ENT: Nares patent, no circumoral cyanosis, no facial swelling NECK: Supple, trachea midline, painless cervical ROM. LUNGS/CHEST: Lungs CTA bilaterally, non-labored respirations, normal A/P diameter, symmetrical expansion, no chest wall deformity HEART (CV/PV): Regular rate and rhythm without murmur, no peripheral edema, no JVD. ABDOMEN: Soft, non-distended, no guarding. MSK: Normal ROM, no swelling/deformity to bilateral UEs or LEs, moving all extremities without weakness, no cyanosis, spine midline without tenderness, normal curvature. NEURO: Mental Status AAOx4 - alert to person, place, time, events No facial droop, no forehead involvement. Motor: No focal weakness - strength 5/5 in bilateral UEs and LEs, proximal and distal, symmetric. Sensory: sensation intact to light touch globally. Gait normal: patient ambulated without ataxia into ED room. PSYCH: euthymic, cooperative, pleasant, appropriate speech Course Vital Signs Vital signs: Vital Signs Temperature 36.2 C L 02/04/24 09:41 Pulse 99 H 02/04/24 09:41 Respiratory Rate 12 02/04/24 09:41 Blood Pressure 115/60 02/04/24 09:41 Pulse Oximetry 98 02/04/24 09:41 Temperature 36.2 C L 02/04/24 09:41 Temperature Source Temporal Artery Scan 02/04/24 09:41 Pulse 99 H 02/04/24 09:41 Respiratory Rate 12 02/04/24 09:41 Blood Pressure 115/60 02/04/24 09:41 Blood Pressure Position Sitting 02/04/24 09:41 Pulse Oximetry 98 02/04/24 09:41 Oxygen Delivery Method Room Air 02/04/24 09:41 Oxygen Flow Rate 0 02/04/24 09:41 Pain Level 10 02/04/24 09:41 Medical Decision Making This dictation utilizes [id number] dictation software and may contain unedited grammatical errors. 63 year-old male presents to ED today by EMS with a chief complaint of chronic pain issues and anxiety, states his anxiety has been going wild lately- he thought he felt a bench at home, and went to sit down and it wasn't there with a minor fall to his lower back/tailbone days ago, now having hip and low back pain that he states is exacerbating his hardware from prior lumbar fusion with onset chronically. Frequently presents by EMS for chronic back pain. Quality described as acute on chronic diffuse back and hip pain, no radiation to numbness/tingling, inability to ambulate, urinary retention, bowel incontinence, fever- patient denies shortness of breath- is at his baseline O2 use of 2L upon arrival. Severity is described as 20/10. Palliating factors include nothing specific attempted. Provoking factors include nothing specific. Patients' medical history: Chronic pain disorder, seizure disorder, idiopathic peripheral neuropathy, history of compression fractures, emphysema, fibromyalgia, anxiety and other psychiatric diagnoses. Family and social history: Uses tobacco, lives at home with his , no exercise, poor diet habits. Pertinent exam findings / vital signs include diffuse midline vertebral tenderness without crepitus or step-off, bilateral hip tenderness without crepitus, able to ambulate, strength 5/5 in all extremities, no signs of trauma, baseline O2 use without hypoxia. Differential / pathologies of concern include chronic pain disorder, anxiety, unlikely vertebral fracture, unlikely hip fracture. Diagnostic studies of: -CBC, CMP, VBG, lactate, procalcitonin, troponin I, BNP, magnesium, XR C-T-L Spine, XR Bilat Hips/Pelvis, EKG. -CBC is unremarkable, no leukocytosis, mild baseline anemia -VBG shows likely chronic retention of CO2, normal pH -Lactate negative -Troponin negative with reliable onset with his possible near syncopal fall versus anxiety yesterday -BNP negative -Magnesium 1.3, repleted by IV, states he has p.o. supplements at home -CMP otherwise unremarkable -XRs show chronic compression fractures, no acute injuries to hips or vertebrae -EKG without stemi Interventions of: -1g PO Tylenol, 30mg IM Toradol, 2mg PO hydromorphone, ketorlac to go pack. -2gm Magnesium repletion IV ED Course/Assessment/Plan: 63-year-old male presents with high anxiety and acute on chronic back pain, states he has been wandering around the house in an anxious state and thought he was about to sit on a bench but there was no bench there and had a ground-level fall to the floor with exacerbation of his hardware from his old lumbar fusion having bilateral hip pain. The patient frequently presents by ambulance for chronic pain issues. He has noted emphysema and uses 2 L of oxygen at home, he is baseline without hypoxia today, I did rule out cardiac cause of his fall and possible near syncope with troponin and BNP, the patient has no markers of sepsis, he has chronic electrolyte abnormalities with low magnesium today which was repleted by IV, states he has p.o. supplements at home, does not want a prescription. X-rays are unremarkable shows old stable compression fractures, counseled the patient on following up with pain care clinic and return to ED for any acute emergent concerns. Findings not consistent with acute coronary syndrome, acute vertebral or hip fracture, sepsis. Disposition of Chronic Pain, Hypomagnesemia. Patient verbalized understanding of the plan and return to ED criteria and engaged in shared decision making. Medical Records Medical records reviewed: Yes I reviewed the patient's medical records. Imaging Data Radiologic Study: Attestation: I personally reviewed and interpreted this imaging study as follows: Imaging: X-Ray Radiologist's impression: EXAM: XR CERVICAL SPINE COMP 4-5V CLINICAL HISTORY: fall yesterday, acute on chronic neck back pain. TECHNIQUE: 2D digital imaging was performed. Five views were performed. COMPARISON: CT CT NECK W from 12/25/2023 CR XR CHEST 2V PA LATERAL from 01/07/2024 FINDINGS: BONES: No fracture or destructive lesion. Vertebral bodies are unremarkable. There is hardware in the left humeral head which overlies the spine on the lateral view. DISKS: Severe narrowing of the anterior C5-6 disc space with prominent endplate osteophytes. Severe narrowing of the C6-7 disc space with prominent endplate os teophytes. Intervertebral mild disc space narrowing at C4-5. Bilateral neural foraminal narrowing. ALIGNMENT: There is reversal of the normal cervical lordosis, stable from priors. The odontoid and atlantoaxial articulations shows degenerative changes.. SOFT TISSUE: Unremarkable. IMPRESSION: Degenerative changes. No acute abnormality. Radiologic Study #2: Attestation: I personally reviewed and interpreted this imaging study as follows: Imaging: X-Ray Radiologist's impression: EXAM: XR THORACIC SPINE COMPLETE CLINICAL HISTORY: fall yesterday, acute on chronic neck back pain. TECHNIQUE: 2D digital imaging was performed. Three views. COMPARISON: CR XR CHEST 2V PA LATERAL from 01/07/2024 FINDINGS: BONES: Mild compression of the superior endplates of T8 and T9 appears stable from prior chest x-ray. No new fractures. The vertebral bodies and posterior elements are unremarkable. ALIGNMENT: Within normal limits. DISKS: Interverebral disc spaces are maintained. Small endplate osteophytes. SOFT TISSUE: Fibrotic changes in the lungs. IMPRESSION: No acute abnormality. Stable mild T8 and T9 compression fractures. Radiologic Study #3: Attestation: I personally reviewed and interpreted this imaging study as follows: Imaging: X-Ray Radiologist's impression: EXAM: XR LUMBAR SPINE COMPLETE CLINICAL HISTORY: fall yesterday, acute on chronic neck back pain. TECHNIQUE: 2D digital imaging was performed. Five views. COMPARISON: CT CT THORACIC LUMBAR SPINE REC from 12/25/[address] CHEST PE CTA from 01/03/2024 FINDINGS: Posterior fusion hardware again noted at L5-S1. Disc spacer in place. Alignment unchanged. Stable mild spondylolisthesis at. Disc spaces are maintained. Stable mild depressions in the superior endplates of L1, L3 and L4. Aorta is calcified. IMPRESSION: Stable appearance of lumbar spine. Radiologic Study #4: Attestation: I personally reviewed and interpreted this imaging study as follows: Imaging: X-Ray Radiologist's impression: EXAM: XR HIP PELVIS ADULT BL CLINICAL HISTORY: bilateral hip pain. TECHNIQUE: 2D digital imaging was performed. Five views. COMPARISON: No exams were available for comparison FINDINGS: Exam limited by overlying clothing. BONES: No acute fracture is present. No bony destructive lesion is seen. Posterior fusion hardware at L5-S1. JOINTS: No dislocation present. SI joints and pubic symphysis are unremarkable. Joint spaces are maintained. Mild acetabular spurring. SOFT TISSUE: Normal. IMPRESSION: Unremarkable radiographs of the bilateral hips. Lab Data Lab results reviewed: Yes I reviewed the patient's lab results. Labs: Laboratory Tests Range/Units 02/04/24 10:13 WBC (4.4-10.8) 10^3/uL 8.46 RBC (4.36-5.78) 10^6/uL 4.36 Hgb (13.5-17.5) g/dL 12.3 L Hct (40.0-50.0) % 38.9 L MCV (80-95) fL 89 MCH (27.0-33.0) pg 28.2 MCHC (32.0-36.0) % 31.6 L RDW (11.8-14.1) % 15.7 H Plt Count (130-400) 10^3/uL 345 MPV (8.0-11.0) fL 9.1 Immature Gran % % 0.2 Neutrophils % % 66.6 Lymphocytes % % 19.0 Monocytes % % 9.9 Eosinophils % % 3.1 Basophils % % 1.2 Nucleated RBC % (0.0-0.3) % 0.0 Absolute Neutrophils (1.2-6.7) 10^3/uL 5.63 Absolute Lymphocytes (1.2-3.4) 10^3/uL 1.61 Absolute Monocytes (0.1-0.8) 10^3/uL 0.84 H Absolute Eosinophils (0.0-0.7) 10^3/uL 0.26 Absolute Basophils (0.0-0.2) 10^3/uL 0.10 VBG pH (7.31-7.41) 7.36 VBG pCO2 (41-51) mmHg 60 H VBG pO2 mmHg 48 VBG HCO3 (23-28) mmol/L 34 H VBG Total CO2 (24-29) mmol/L 31 H VBG O2 Saturation % 83 VBG Base Excess (-2-3) mmol/L 8 H VBG Lactate (0.6-1.4) mmol/L 1.0 Sodium (136-145) mmol/L 137 Potassium (3.5-5.1) mmol/L 3.8 Chloride (98-107) mmol/L 97 L Carbon Dioxide (21.0-32.0) mmol/L 32.1 H Anion Gap (3-11) mmol/L 7.9 BUN (7-18) mg/dL 9 Creatinine (0.70-1.30) mg/dL 0.7 Est GFR (CKD-EPI 2020) (mL/min/1.73m2) 104.83 Glucose (74-106) mg/dL 109 H Calcium (8.5-10.1) mg/dL 8.6 Magnesium (1.8-2.4) mg/dL 1.3 L Total Bilirubin (0.2-1.0) mg/dL 0.4 AST (15-37) U/L 28 ALT (16-63) U/L 36 Alkaline Phosphatase (46-116) U/L 131 H Troponin I (< or =60) ng/L < 50 NT-Pro-B Natriuret Pep (<300) pg/mL 19 Total Protein (6.4-8.2) g/dL 7.5 Albumin (3.4-5.0) g/dL 3.8 Lipase (16-77) U/L 27 Procalcitonin ng/mL < 0.1 Quality:SDOH Health Related Social Needs: Health related social needs food insecurity, transpo i nsecurity PFSH All Active Problems (Updated 02/04/24 @ 12:14 by BRIAN Maldonado) Hypomagnesemia (Acute) Chronic pain (Chronic) Onychomycosis (Acute) Lymphedema (Acute) Atherosclerosis of artery of both lower extremities (Acute) Displaced fracture of proximal phalanx of left lesser toe(s), initial encounter for closed fracture (Acute) Neuropathy (Acute) Restless legs (Acute) Asthma (Chronic) Fracture of phalanx of lesser toe of left foot (Acute) Normocytic anemia (Acute) Thrombocytosis (Acute) Sinusitis, acute (Acute) Obstructive sleep apnea (Chronic) Elevated lactic acid level (Acute) Leukocytosis (Acute) Blood bacterial culture positive (Acute) Hypokalemia (Acute) Nicotine dependence, cigarettes, uncomplicated (Acute) Emphysema lung (Acute) Pulmonary hypertension (Acute) Hoarseness (Acute) Leukoplakia of larynx (Acute) Interstitial lung disease (Chronic) Fibromyalgia (Acute) Depressive disorder (Chronic) Chronic pain (Chronic) 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 Anasarca (Acute) Acute asthma (Acute) Xerostomia (Acute) Oral leukoplakia (Acute) Tobacco abuse (Acute) Chronic laryngitis (Acute) Nail dystrophy (Acute) Pain, foot (Acute) Corns and callosities (Acute) Bipolar 1 disorder (Acute) Anemia (Chronic) Acquired talipes planus (Acute) Hallux varus (acquired) (Acute) IGT (impaired glucose tolerance) (Acute) Peripheral neuropathy (Acute) Benign prostatic hyperplasia with hesitancy (Acute) Cortical cataract of left eye (Acute) Hypogonadism in male (Acute) Spermatocele of epididymis, multiple (Acute) Medical History Bipolar disorder Tinea cruris Spermatocele Seizure disorder Pt. states he had 1 seizure 13 years ago from a medication. But states he has not had one since. Psychophysiologic insomnia Pain of left shoulder joint on movement Pain of left hip joint Pain in right knee Onycholysis Migraine Spondylolisthesis, lumbar region Left atrial enlargement Injury of shoulder and upper arm Idiopathic peripheral neuropathy Herpesviral vesicular dermatitis Hx of fracture of vertebral column Fibromyositis Fatigue Disorder of upper respiratory system Degeneration of lumbar intervertebral disc Degeneration of cervical intervertebral disc Decreased testosterone level Closed fracture of proximal end of humerus Closed fracture of lumbar vertebra Claustrophobia Cervicogenic headache Bilateral knee pain 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 Acute hyponatremia Allergic rhinitis History of hypothyroidism History of back injury Sleep apnea Lumbar disc disease Cervical disc disease Depression Neuropathy Hypertension Seizure Hyperlipidemia GERD (gastroesophageal reflux disease) Surgical History H/O sinus surgery H/O nasal septoplasty Hx of cataract surgery Hx of shoulder surgery left History of back surgery History of orthopedic surgery finger mass Hx of tonsillectomy Hx of arthroscopy of knee H/O eye surgery foreign body removal H/O carpal tunnel repair H/O hernia repair Family History Mother Diabetes Heart disease Hypertension Father Hypertension Social History Smoking/Tobacco Use Status: Current every day Tobacco Type: cigarettes Smoking packs per day: 3 Smoking cigarettes per day: 60.0 Tobacco: How many years used: 40 Smoking risk assessment performed?: Yes Alcohol Intake: never Drug use: Never Substance use type: does not use Housing: apartment Do you feel safe at home: Yes Do you feel safe in your relationship?: Yes Additional Social history: unable to assess privately
[2024-02-04 10:19] LABS: Abs Immature Grans 0.02 10^3/uL (0.0-0.06); Absolute Eosinophil Count 0.26 10^3/uL (0.0-0.7); Absolute Lymphocyte Count 1.61 10^3/uL (1.2-3.4); Absolute Monocyte Count 0.84 10^3/uL (0.1-0.8); Absolute Neutrophil Count 5.63 10^3/uL (1.2-6.7); BE (Venous) 8 mmol/L (-2-3); Basophils % 1.2 %; Eosinophils % 3.1 %; HCO3 (Venous) 34 mmol/L (23-28); HCT 38.9 % (40.0-50.0); HGB 12.3 g/dL (13.5-17.5); Immature Grans % 0.2 %; MCH 28.2 pg (27.0-33.0); MCHC 31.6 % (32.0-36.0); MCV 89 fL (80-95); MPV 9.1 fL (8.0-11.0); Monocytes % 9.9 %; Neutrophils % 66.6 %; O2 Sat (Venous) 83 %; Platelet Count 345 10^3/uL (130-400); RBC 4.36 10^6/uL (4.36-5.78); RDW 15.7 % (11.8-14.1); RDW-SD 52.1 fL; TCO2 (Venous) 31 mmol/L (24-29); WBC 8.46 10^3/uL (4.4-10.8); pCO2 (Venous) 60 mmHg (41-51); pH (Venous) 7.36 (7.31-7.41); pO2 (Venous) 48 mmHg
[2024-02-04] MEDS: Ketorolac 30 MG/ML VIAL IM (10:20)
[2024-02-04] MEDS: hydrOXYzine HCL 25 MG TAB PO (10:21)
[2024-02-04] MEDS: Acetaminophen 500 MG TAB 1000 MG PO (10:21)
[2024-02-04] MEDS: HYDROmorphone 2 MG TAB PO (10:21)
[2024-02-04 10:40] LABS: Magnesium 1.3 mg/dL (1.8-2.4)
[2024-02-04 10:50] LABS: ALT 36 U/L (16-63); AST 28 U/L (15-37); Albumin 3.8 g/dL (3.4-5.0); Alkaline Phosphatase 131 U/L (46-116); Anion Gap 7.9 mmol/L (3-11); BUN 9 mg/dL (7-18); Bilirubin, Total 0.4 mg/dL (0.2-1.0); CO2 32.1 mmol/L (21.0-32.0); CREATININE 0.7 mg/dL (0.70-1.30); Calcium 8.6 mg/dL (8.5-10.1); Chloride 97 mmol/L (98-107); Estimated GFR 104.83 (mL/min/1.73m2); Glucose 109 mg/dL (74-106); Lipase 27 U/L (16-77); NT-proBNP 19 pg/mL (<300); Potassium 3.8 mmol/L (3.5-5.1); Sodium 137 mmol/L (136-145); Total Protein 7.5 g/dL (6.4-8.2); Troponin I < 50 ng/L (< or =60)
[2024-02-04 11:18] LABS: Procalcitonin < 0.1 ng/mL
[2024-02-04] MEDS: MAGNESIUM SULFATE 2 GM/50 ML BAG IVINF (11:50)
--- NOTE | 2024-02-04 11:53 | NUR.NOTE ---
Nursing Note: PA states Mgso4 to run in over 30 min on the pump.
[2024-02-04] MEDS: Ketorolac 10 MG TAB 40 MG PO (12:29)
--- NOTE | 2024-02-04 12:31 | NUR.NOTE ---
Referral faxed to the [facility] when they have an available appointment.
== END 2024-02-04 12:31 | disposition home or self-care (01) ==
PROVIDERS: Emergency Provider Physician Assistant; PCP Family Medicine
DX: M54.50 Low back pain, unspecified (principal); G89.29 Other chronic pain; E83.42 Hypomagnesemia; M43.26 Fusion of spine, lumbar region
CPT/HCPCS: 73521; 80053; 82805; 83690; 84145; 96365; 96372; 99284; 72050; 72072; 72110; 83605; 83735; 83880; 84484; 85025; 99283; J1885; J3475

== ENCOUNTER → 2024-02-12 00:44 | Outpatient (CLI) | payer OTHER, MEDICAID, SELFPAY ==
--- NOTE | 2024-02-12 06:45 | DI.RAD_ITS ---
Exam(s) XR FOOT LT COMPLETE EXAM: XR FOOT LT COMPLETE CLINICAL HISTORY: Consolidation,FX LESSER TOE LT FOOT,S92.502A,S92.512A. TECHNIQUE: 2D digital imaging was performed of the left foot. Three images were obtained. AP, obli que and lateral views were obtained. COMPARISON: CR XR FOOT LT COMPLETE from 01/21/2024 FINDINGS: BONES: There has been no change in alignment of the fracture involving the proximal phalanx of the 5t h toe. No bony destructive lesion is seen. JOINTS: No dislocation present. SOFT TISSUE: There is soft tissue swelling of the foot. No radiopaque foreign bodies are identified. IMPRESSION: Stable alignment of the fracture of the proximal phalanx of the 5th toe. DATA REPOSITORY: RADIATION DOSE DELIVERED:
== END ==
PROVIDERS: PCP Family Medicine; Visit Provider Podiatrist
DX: S92.502A Displaced unspecified fracture of left lesser toe(s), initial encounter for closed fracture (principal); S92.512A Displaced fracture of proximal phalanx of left lesser toe(s), initial encounter for closed fracture
CPT/HCPCS: 93922; 73630

== ENCOUNTER → 2024-03-30 13:32 | Outpatient (BNVA) | payer OTHER, MEDICAID, SELFPAY | PROVIDERS: PCP Family Medicine; Referring Provider Family Medicine; Visit Provider Physician Assistant Surgical | DX: J84.9 Interstitial pulmonary disease, unspecified (principal) | CPT/HCPCS: 99214 ==

== ENCOUNTER → 2024-06-23 13:46 | Outpatient (BNVA) | payer OTHER, MEDICAID, SELFPAY | PROVIDERS: PCP Family Medicine; Referring Provider Family Medicine; Visit Provider Nurse Practitioner Gerontology | DX: N40.1 Benign prostatic hyperplasia with lower urinary tract symptoms (principal); R39.11 Hesitancy of micturition | CPT/HCPCS: 51798; 99214 ==

== ENCOUNTER → 2025-02-10 10:14 | Outpatient (BNVA) | payer MEDICARE, MEDICAID, SELFPAY | PROVIDERS: PCP Family Medicine; Referring Provider Family Medicine; Visit Provider Nurse Practitioner Gerontology | DX: N40.1 Benign prostatic hyperplasia with lower urinary tract symptoms (principal); R39.11 Hesitancy of micturition; R39.9 Unspecified symptoms and signs involving the genitourinary system | CPT/HCPCS: 51798; 99213 ==

== ENCOUNTER → 2025-03-02 10:34 | Outpatient (BNVA) | payer MEDICARE, MEDICAID, SELFPAY | PROVIDERS: PCP Family Medicine; Referring Provider Family Medicine; Visit Provider Internal Medicine Pulmonary Disease | DX: J84.9 Interstitial pulmonary disease, unspecified (principal); J43.9 Emphysema, unspecified; G47.33 Obstructive sleep apnea (adult) (pediatric); J96.12 Chronic respiratory failure with hypercapnia; F17.210 Nicotine dependence, cigarettes, uncomplicated | CPT/HCPCS: 99215; 99406 ==

== ENCOUNTER 2025-04-05 02:46 | Outpatient (CLI) | payer MEDICARE, MEDICAID, SELFPAY ==
[2025-04-05] MEDS: Levalbuterol HFA 15 GM INH 4 PUFF IH (14:30)
[2025-04-05] MEDS: Inhaler, Assist Device 1 EACH MC (14:30)
--- NOTE | 2025-04-05 14:31 | DI.CT_ITS ---
Exam(s) CT CHEST HIGH RESOLUTION EXAM: CT CHEST HIGH RESOLUTION CLINICAL HISTORY: Interstitial lung disease,J84.9. TECHNIQUE: Imaging protocol: Axial computed tomography images were obtained and coronal and sagittal reformatted images were created and reviewed. Additional high-resolution expiratory images were also obtained. Computer aided detection (CAD) was utilized. CONTRAST MATERIAL: Noncontrast COMPARISON: CT CT CHEST/ABD/PEL W from 12/25/[address] CHEST PE CTA from 01/03/2024 CR,XR XR PORTABLE CHEST AP from 01/04/2024 CR XR CHEST 2V PA LATERAL from 01/07/2024 FINDINGS: Pulmonary parenchyma: No consolidation. No suspicious nodules. Interstitial changes: Interstitial thickening greater peripherally and at the lung bases. Findings appear to have worsened when compared with the 25 Dec 2023 exam, however this could partially secondary to differences in technique. Emphysema: Paraseptal emphysematous changes, greater at the lung apices. Some air trapping is noted on expiratory images, greater at the left lower lobe. Tracheobronchial tree: No mucous plugging. No bronchiectasis . Pleura: No effusion or pneumothorax. Heart: The heart is mildly dilated. The coronary arteries show mild calcifications. Aorta: Thoracic aorta non-dilated. Mild atherosclerotic changes. Lymph nodes: No enlarged lymph nodes. Bones: Degenerative changes are seen. No evidence of compression fracture. Upper abdomen: Unremarkable. Soft tissues: Bilateral gynecomastia. IMPRESSION: Moderate interstitial changes, greater peripherally and at the lung bases. Mild to moderate paraseptal emphysematous changes greater at the did at lung apices. RADIATION DOSE DELIVERED: Total DLP Total DLP DATA REPOSITORY: All CT scans at this facility are submitted to the National Radiology Data Registry (NRDR) Dose Index Registry (DIR) with the [employer] ([employer]). RADIATION OPTIMIZATION: All CT scans at this facility use at least one of these dose optimization techniques: automated exposure control; mA and/or kV adjustment per patient size (includes targeted exams where dose is matched to clinical indication); or iterative reconstruction.
--- NOTE | 2025-04-06 08:59 | W.PFT ---
Date of service: 04/05/25 Time of Service: 13:08 Pulmonary Function Test Result Indications: ILD, emphysema Impression 1. Good patient effort was noted. ATS standards for reproducibility were met. 2. Spirometry showed no obstruction 3. Following the administration of a bronchodilator there was not a significant response 4. TLC is reduced at 67% predicted, consistent with mild-moderate restrictive lung disease 5. DLCO was 62%, consistent with a moderate defect in alveolar gas exchange
== END 2025-04-05 02:47 | disposition home or self-care (01) ==
LOC: RT 02:46
PROVIDERS: PCP Family Medicine; Visit Provider Internal Medicine Pulmonary Disease
DX: J84.9 Interstitial pulmonary disease, unspecified (principal); J43.9 Emphysema, unspecified
CPT/HCPCS: 94060; 94726; 94729; 71250

== ENCOUNTER → 2025-04-12 11:23 | Outpatient (BNVA) | payer MEDICARE, MEDICAID, SELFPAY | PROVIDERS: PCP Family Medicine; Referring Provider Family Medicine; Visit Provider Internal Medicine Pulmonary Disease | DX: J84.9 Interstitial pulmonary disease, unspecified (principal); J43.9 Emphysema, unspecified; Z72.0 Tobacco use; G47.33 Obstructive sleep apnea (adult) (pediatric); J96.12 Chronic respiratory failure with hypercapnia | CPT/HCPCS: 99215; 99406; 36415 ==

== ENCOUNTER 2025-04-12 15:14 | Outpatient (REF) | payer MEDICARE, SELFPAY ==
[2025-04-12 16:15] LABS: ESR 17 mm/hr (0-20)
[2025-04-12 16:34] LABS: ALT 23 U/L (16-63); AST 16 U/L (15-37); Albumin 3.8 g/dL (3.4-5.0); Alkaline Phosphatase 126 U/L (46-116); Anion Gap 5.5 mmol/L (3-11); BUN 12 mg/dL (7-18); Bilirubin, Total 0.3 mg/dL (0.2-1.0); CO2 35.5 mmol/L (21.0-32.0); Calcium 9.8 mg/dL (8.5-10.1); Chloride 98 mmol/L (98-107); Creatine Kinase 61 U/L (39-308); Estimated GFR 100.06 (mL/min/1.73m2); Glucose 116 mg/dL (74-106); Potassium 4.7 mmol/L (3.5-5.1); Sodium 139 mmol/L (136-145); Total Protein 7.2 g/dL (6.4-8.2)
[2025-04-12 16:36] LABS: C-Reactive Protein < 0.50 mg/dL (<or=0.5)
[2025-04-13 10:45] LABS: RNP Ab, IgG <6.0 CU (<20.0)
[2025-04-13 10:52] LABS: Ro60 Ab, IgG <7.0 CU (<20.0); SS-A/Ro, IgG <2.3 CU (<20.0); SS-B (La) Ab, IgG <3.3 CU (<20.0)
[2025-04-14 10:32] LABS: JO 1 Ab, IgG <0.2 U; Scl 70 Antibodies, IgG <0.2 U; Sm (Smith) Ab, IgG <0.2 U
== END 2025-04-12 15:15 | disposition home or self-care (01) ==
LOC: LBN 15:14
PROVIDERS: PCP Family Medicine; Visit Provider Internal Medicine Pulmonary Disease
DX: J84.9 Interstitial pulmonary disease, unspecified (principal)
CPT/HCPCS: 80053; 82550; 85652; 86038; 86140; 86225; 86235

== ENCOUNTER → 2025-05-05 13:50 | Outpatient (BNVA) | payer MEDICARE, MEDICAID, SELFPAY | PROVIDERS: PCP Family Medicine; Referring Provider Family Medicine; Visit Provider Internal Medicine Pulmonary Disease | DX: J84.9 Interstitial pulmonary disease, unspecified (principal); G47.33 Obstructive sleep apnea (adult) (pediatric); Z72.0 Tobacco use; J43.9 Emphysema, unspecified | CPT/HCPCS: 99215 ==

== ENCOUNTER 2025-06-10 03:13 | Outpatient (CLI) | payer MEDICARE, MEDICAID, SELFPAY ==
--- NOTE | 2025-06-10 | DI.MRI_ITS ---
Exam(s) MR BRAIN ORBIT FACE NECK WO/W EXAM: MR BRAIN ORBIT FACE NECK WO/W CLINICAL HISTORY: LAKIA SWELLING OPTIC DISCS, VISUAL DISTURBANCES TECHNIQUE: Multiplanar multisequence MRI of the brain and orbits were performed. 20 mL Dotarem IV. COMPARISON: No exams were available for comparison FINDINGS: VENTRICLES AND EXTRA AXIAL SPACES: Normal in size and morphology for the patient's age. HEMORRHAGE: None. CEREBRAL PARENCHYMA: No focus of restricted diffusion to suggest acute infarct. No space-occupying lesion identified. MIDLINE SHIFT: None. BRAINSTEM/CEREBELLUM: Normal. CALVARIUM: Normal. VISUALIZED PARANASAL SINUSES/MASTOIDS: Small amount of mucous retention in the ethmoid sinuses and right maxillary sinus. ORBITS: The anterior and posterior chambers of the globes are intact. The retrobulbar fat is unremarkable. Extraocular muscles are unremarkable. OPTIC NERVES: The intracranial and extracranial portions of the optic nerves are within normal limits. Optic chiasm is within normal limits. No MRI evidence of optic neuritis identified. FINDINGS: Prominent right superior ophthalmic vein. No evidence of thrombosis. IMPRESSION: Prominent right superior thumb vein. The orbits are otherwise unremarkable. Unremarkable MRI of the brain. DATA REPOSITORY:
[2025-06-10] MEDS: Gadoterate meglumine 20 ML SYRINGE IVP (08:41)
[2025-06-10] MEDS: Normal Saline Flush 10 ML SYR IVP (08:42)
== END 2025-06-10 03:33 ==
LOC: DI 03:13
PROVIDERS: PCP Family Medicine; Visit Provider Optometrist
DX: H47.333 Pseudopapilledema of optic disc, bilateral (principal); H53.453 Other localized visual field defect, bilateral
CPT/HCPCS: 70553; 70543

== ENCOUNTER → 2025-06-23 10:50 | Outpatient (BNVA) | payer MEDICARE, SELFPAY | PROVIDERS: PCP Family Medicine; Referring Provider Family Medicine; Visit Provider Physician Assistant Surgical | DX: J84.9 Interstitial pulmonary disease, unspecified (principal); G47.33 Obstructive sleep apnea (adult) (pediatric); J43.9 Emphysema, unspecified; Z72.0 Tobacco use | CPT/HCPCS: 36415; 99215 ==

== ENCOUNTER 2025-06-23 13:24 | Outpatient (REF) | payer MEDICARE, SELFPAY ==
[2025-06-23 14:31] LABS: ALT 35 U/L (16-63); AST 26 U/L (15-37); Albumin 3.8 g/dL (3.4-5.0); Alkaline Phosphatase 131 U/L (46-116); Anion Gap 7.4 mmol/L (3-11); BUN 27 mg/dL (7-18); Bilirubin, Total 0.4 mg/dL (0.2-1.0); CO2 33.6 mmol/L (21.0-32.0); Calcium 9.3 mg/dL (8.5-10.1); Chloride 92 mmol/L (98-107); Glucose 95 mg/dL (74-106); Potassium 4.9 mmol/L (3.5-5.1); Sodium 133 mmol/L (136-145); Total Protein 7.5 g/dL (6.4-8.2)
== END 2025-06-23 13:25 | disposition home or self-care (01) ==
LOC: LBN 13:24
PROVIDERS: PCP Family Medicine; Visit Provider Physician Assistant Surgical
DX: J84.9 Interstitial pulmonary disease, unspecified (principal)
CPT/HCPCS: 80053